=== PATIENT | male | born 1995 | race Caucasian/White ===

== ENCOUNTER 2023-05-19 02:29 | Emergency (ER) | payer SELFPAY ==
[2023-05-19 02:40] VITALS: BP 200/118; PULSE 64; RESP 18; TEMP 36.4; O2SAT 100; BMI 37.9
--- NOTE | 2023-05-19 02:56 | ED.GENADUL1 ---
HPI - General Adult General Chief complaint: Abdominal Pain Stated complaint: R FLANK PAIN Time Seen by Provider: 05/19/23 02:33 Source: patient Mode of arrival: walk-in Limitations: no limitations History of Present Illness HPI narrative: This 28-year-old male presents for evaluation of acute onset of right lower quadrant abdominal pain and right flank pain with nausea vomiting since 10:30 last night. The patient states he cannot get comfortable. He denies a history of kidney stones. He drove himself to the emergency department. He denies any fever. He has no chest pain or shortness of breath. Related Data Home Medications Medication Instructions Recorded Confirmed No Known Home Medications 05/19/23 05/19/23 Allergies Allergy/AdvReac Type Severity Reaction Status Date / Time No Known Drug Allergies Allergy Verified 05/19/23 02:47 Review of Systems ROS Status of ROS 10 or more systems reviewed and unremarkable except as noted in history and below [facility] Social History Smoking status: Current some day smoker Exam Narrative Exam Narrative: Nurses note and vital signs reviewed and patient is not hypoxic. Blood pressure is markedly elevated at 200/118 General: Nontoxic but uncomfortable-writhing on the stretcher male, he has dry heaves with bilious vomiting, no respiratory distress Skin: Warm, dry, no pallor noted. There is no rash noted. Head: Normocephalic, atraumatic Eye: Normal conjunctiva, no drainage, EOMI. PERRL Ears, Nose, Mouth, and Throat: oral mucosa is moist. Nares patent. Mouth without vesicles. Ear canals patent. Tm's without Erythema Cardiovascular: Regular Rate and Rhythm Respiratory: Patient is in no distress, no accessory muscle use, lungs are clear to auscultation, no wheezing, rales or rhonchi Back: non-tender, no CVA tenderness bilaterally to percussion. GI: Normal bowel sounds, there is tenderness in the right lower quadrant, patient pushes my hand away, tenderness along the distribution of the right ureter and right CVA tenderness Musculoskeletal: The patient has no evidence of calf tenderness, no pitting edema, symmetrical pulses noted bilaterally Neurological: A&O x4, normal speech Psychiatric: Cooperative Constitutional Vital Signs, click to edit/add: Last Vital Signs Temp 97.6 F 05/19/23 02:40 Pulse 61 03/04/24 04:56 Resp 16 05/19/23 04:56 BP 170/100 H 05/19/23 04:56 Pulse Ox 99 05/19/23 04:56 O2 Del Method Room Air 05/19/23 04:56 Course Vital Signs Vital signs: Vital Signs Temperature 97.6 F 05/19/23 02:40 Pulse Rate 64 05/19/23 02:40 Respiratory Rate 18 05/19/23 02:40 Blood Pressure 200/118 H 05/19/23 02:40 Pulse Oximetry 100 05/19/23 02:40 Oxygen Delivery Method Room Air 05/19/23 02:40 Temperature 97.6 F 05/19/23 02:40 Pulse Rate 61 05/19/23 04:56 Respiratory Rate 16 05/19/23 04:56 Blood Pressure 170/100 H 05/19/23 04:56 Pulse Oximetry 99 05/19/23 04:56 Oxygen Delivery Method Room Air 05/19/23 04:56 Medical Decision Making MDM Narrative Medical decision making narrative: This 28-year-old male presents for evaluation of right-sided abdominal pain with right flank pain with nausea vomiting. The onset was acute around 10:30 PM. Upon arrival he was vomiting and writhing around on the bed. He was tender in his right lower quadrant and along the distribution of the right ureter and right flank. The patient states he felt like he needed to have a bowel movement. He felt he was constipated. Clinically he appeared to be passing a kidney stone with colicky symptoms. He denies any chest pain or shortness of breath. He is medicated with IV fluids, Zofran and Toradol. His symptoms responded with control of his nausea and pain. Routine labs were ordered and are reviewed. His white count is mildly elevated at 12.1. The remainder of his labs and urine are negative. CT scan of the abdomen and pelvis was ordered to rule out appendicitis. The CT scan which is included in by his report shows moderate stool burden in the ascending and transverse colon with mild thickening of the colonic wall without associated inflammation with recommendation to correlate with clinical symptoms., 7.5 mm appendix with no periappendiceal inflammation, with no kidney or ureteral stones. These findings were discussed with the patient and he was given a copy of his CAT scan report. He now is stating that he had diarrhea earlier in the evening and there was a large amount of mucus in it. He is also having chills and influenza testing was ordered. He will be given a dose of Bentyl. I anticipate discharge after the influenza testing has been ordered with medications to control his nausea and colonic spasms; Zofran and Bentyl. Influenza is negative and he feels comfortable being discharged home. Medical Records Medical records narrative: The [address] [address] [address] Scan Report Signed Patient: MIGDALIA GARAY MR#: [id number] : 1995 Acct:[id number] Age/Sex: 28 / M ADM Date: 05/19/23 Loc: ER Attending Dr: Ordering Physician: Edis White Date of Service: 05/19/23 Procedure(s): CT abdomen pelvis wo con Accession Number(s): [id number] cc: Physician,Non-Staff M.D.~ The [address] [address] Patient Name: MIGDALIA GARAY MRN: [facility]:[id number] date: 1995 Sex: M Assigned Patient Location: ER Current Patient Location: ER Accession/Order Number: [id number] Exam Date: 05/19/2023 03:47 Report Date: 05/19/2023 04:19 At the request of: EDIS WHITE Procedure: CT abdomen pelvis wo con EXAM: CT abdomen pelvis wo con HISTORY: Right lower quadrant abdominal pain. COMPARISON: None. TECHNIQUE: Routine CT abdomen/pelvis without intravenous contrast. FINDINGS: Lower chest: Unremarkable Liver/gallbladder/biliary tree/pancreas/adrenal glands: Unremarkable. Spleen: Mild thyromegaly measuring 15.0 x 5.6 x 12.7 cm in longitudinal, transverse and AP dimensions. Kidneys: Both kidneys and both ureters are unremarkable. There is no renal calculus or obstructive uropathy. Urinary bladder: Unremarkable. Bowel: Nonobstructive bowel gas pattern with a moderate amount of stool within the ascending and proximal transverse colon. There is mild colonic wall thickening without pericolonic inflammatory reaction. Correlate with clinical findings of a developing colitis. The appendix is prominent measuring up to 7.5 mm. There is no periappendiceal inflammatory reaction. The distal esophagus, stomach and small bowel are unremarkable. Inflammation: There is no free air, free fluid or inflammatory reaction. Vasculature: The abdominal aorta and IVC are unremarkable. Lymphadenopathy: There are no pathologically enlarged lymph nodes within the abdomen/pelvis. Pelvis: The prostate gland is normal size. Osseous: Unremarkable. CT/CT abdomen pelvis wo con IMPRESSION: Nonobstructive bowel gas pattern with a moderate amount of stool within the ascending and proximal transverse colon. Mild colonic wall thickening without pericolonic inflammatory reaction. Correlate with clinical findings of a developing colitis. The appendix is prominent measuring up to 7.5 mm. There is no periappendiceal inflammatory reaction. The kidneys and ureters are unremarkable. There is no renal or ureteral calculus or obstructive uropathy. The urinary bladder is unremarkable. Mild splenomegaly measuring 15.0 x 5.6 x 12.7 cm. Electronically authenticated by: JIM STANTON Date: 05/19/2023 04:19 Lab Data Labs: Lab Results 05/19/23 05/19/23 05/19/23 Range/Units 02:54 04:39 04:49 WBC 12.1 H (4.0-11.0) 10^3/uL RBC 5.18 (4.70-6.10) 10^6/uL Hgb 14.6 (14.0-18.0) g/dL Hct 43.0 (42.0-54.0) % MCV 83.0 (80.0-94.0) fL MCH 28.2 (25.9-34.0) pg MCHC 34.0 (29.9-35.2) g/dL RDW 12.7 (11.0-15.0) % Plt Count 237 (150-450) 10^3/uL MPV 10.6 (9.5-13.5) fL Neut % (Auto) 66.3 (43.0-75.0) % Lymph % (Auto) 25.4 (20.5-60.0) % [place] % (Auto) 6.0 (1.7-12.0) % Eos % (Auto) 1.7 (0.9-7.0) % Baso % (Auto) 0.4 (0.2-2.0) % Neut # (Auto) 8.0 H (1.4-6.5) 10^3/uL Lymph # (Auto) 3.1 (1.2-3.8) 10^3/uL [place] # (Auto) 0.7 (0.3-0.8) 10^3/uL Eos # (Auto) 0.2 (0.0-0.7) 10^3/uL Baso # (Auto) 0.1 (0.0-0.1) 10^3/uL Abs Immat Gran (auto) 0.02 (0.00-0.03) 10^3/uL Imm/Tot Granulo (auto) 0.2 (0.0-0.5) % Sodium 142 (136-145) mmol/L Potassium 3.6 (3.5-5.1) mmol/L Chloride 104 (98-107) mmol/L Carbon Dioxide 27.0 (21.0-32.0) mmol/L Anion Gap 14.6 BUN 16.0 (7.0-18.0) mg/dL Creatinine 0.97 (0.70-1.30) mg/dL Est GFR ( Amer) >60 (>=60) Est GFR (Non-Af Amer) >60 (>=60) BUN/Creatinine Ratio 16.5 Glucose 120 H (74-106) mg/dL Calcium 9.5 (8.5-10.1) mg/dL Total Bilirubin 0.5 (0.2-1.0) mg/dL AST 26 (15-37) U/L ALT 46 (16-63) U/L Alkaline Phosphatase 80 (46-116) U/L Total Protein 7.6 (6.4-8.2) g/dL Albumin 4.3 (3.4-5.0) g/dL Globulin 3.3 g/dL Albumin/Globulin Ratio 1.3 Urine Color Lt. yellow (YELLOW) Urine Clarity Clear (CLEAR) Urine pH 7.0 (5.0-9.0) Ur Specific [place] 1.020 (1.005-1.025) Urine Protein Negative (NEG/TRACE) mg/dL Urine Glucose (UA) Negative (NEGATIVE) mg/dL Urine Ketones 15 A (NEGATIVE) mg/dL Urine Occult Blood Negative (NEGATIVE) Urine Nitrite Negative (NEGATIVE) Urine Bilirubin Negative (NEGATIVE) Urine Urobilinogen 1.0 (0.2-1.0) EU/dL Ur Leukocyte Esterase Negative (NEGATIVE) Influenza Type A Ag Negative Influenza Type B Ag Negative Discharge Plan Discharge Chief Complaint: Abdominal Pain Clinical Impression: Colitis, Nausea & vomiting, Constipation Patient Disposition: Home, Self-Care Time of Disposition Decision: 05:30 Condition: Good Prescriptions / Home Meds: No Action No Known Home Medications Instructions: Constipation (ED), High Fiber Diet (ED), Gastroenteritis (DC), Acute Nausea and Vomiting (DC) Referrals: Physician,Non-Staff, MD [Primary Care Provider] - 1 week Stand Alone Forms: Portal Instructions
[2023-05-19 03:17] LABS: Basophils Absolute Auto 0.1 10^3/uL (0.0-0.1); Basophils Percent Auto 0.4 % (0.2-2.0); Eosinophils Absolute Auto 0.2 10^3/uL (0.0-0.7); Eosinophils Percent Auto 1.7 % (0.9-7.0); Hemoglobin 14.6 g/dL (14.0-18.0); Immature Granulocytes Abs Auto 0.02 10^3/uL (0.00-0.03); Immature Granulocytes Pct Auto 0.2 % (0.0-0.5); Lymphocytes Absolute Auto 3.1 10^3/uL (1.2-3.8); Lymphocytes Percent Auto 25.4 % (20.5-60.0); Mean Corpuscular Hemoglobin 28.2 pg (25.9-34.0); Mean Platelet Volume 10.6 fL (9.5-13.5); Monocytes Absolute Auto 0.7 10^3/uL (0.3-0.8); Neutrophils Percent Auto 66.3 % (43.0-75.0); Platelet Count 237 10^3/uL (150-450); Red Blood Count 5.18 10^6/uL (4.70-6.10); Red Cell Distribution Width 12.7 % (11.0-15.0); White Blood Count 12.1 10^3/uL (4.0-11.0)
[2023-05-19] MEDS: KETOROLAC TROMETHAMINE 30 MG/ML VIAL IVP (03:23)
[2023-05-19] MEDS: 0.9 % SODIUM CHLORIDE 1,000 ML 1000 ML IV (03:23)
[2023-05-19] MEDS: ONDANSETRON PF 4 MG/2 ML VIAL IV (03:23)
[2023-05-19 03:32] LABS: Alanine Aminotransferase 46 U/L (16-63); Albumin Globulin Ratio 1.3; Albumin Level 4.3 g/dL (3.4-5.0); Alkaline Phosphatase 80 U/L (46-116); Anion Gap 14.6; Aspartate Amino Transferase 26 U/L (15-37); BUN Creatinine Ratio 16.5; Bilirubin Total 0.5 mg/dL (0.2-1.0); Calcium 9.5 mg/dL (8.5-10.1); Chloride 104 mmol/L (98-107); Estimated GFR (African America >60 (>=60); Estimated GFR (Non-African Ame >60 (>=60); Globulin 3.3 g/dL; Glucose 120 mg/dL (74-106); Potassium 3.6 mmol/L (3.5-5.1); Sodium 142 mmol/L (136-145); Total Protein 7.6 g/dL (6.4-8.2)
[2023-05-19 03:51] VITALS: BP 180/100
[2023-05-19 04:46] LABS: Bilirubin Urine NEGATIVE (NEGATIVE); Blood Urine NEGATIVE (NEGATIVE); Clarity Urine CLEAR (CLEAR); Color Urine LT. YELLOW (YELLOW); Glucose Urine UA NEGATIVE (NEGATIVE); Ketones Urine 15 mg/dL (NEGATIVE); Leukocyte Esterase Urine NEGATIVE (NEGATIVE); Nitrite Urine NEGATIVE (NEGATIVE); Protein Urine NEGATIVE (NEG/TRACE)
[2023-05-19 04:48] LABS: Urine Microscopic Indicated NO
[2023-05-19] MEDS: DICYCLOMINE HCL 20 MG/2 ML VIAL IM (04:50)
[2023-05-19 04:56] VITALS: BP 170/100; PULSE 61; RESP 16; O2SAT 99
[2023-05-19 05:07] LABS: Influenza Virus A Antigen Negative; Influenza Virus B Antigen Negative; Internal Control Within Normal Limits
== END 2023-05-19 05:41 | disposition home or self-care (01) ==
PROVIDERS: Emergency Provider Emergency Medicine
DX: K52.9 Noninfective gastroenteritis and colitis, unspecified (principal); K59.00 Constipation, unspecified; R11.2 Nausea with vomiting, unspecified; F17.210 Nicotine dependence, cigarettes, uncomplicated
CPT/HCPCS: 36415; 74176; 80053; 81001; 81003; 85025; 87804; 96361; 96372; 96374; 96375; 99284; J0500

== ENCOUNTER 2023-08-25 20:30 | Inpatient (IN) | payer SELFPAY ==
--- OUTSIDE RECORDS SUMMARY | 2023-08-25 20:36 | XMS_ITS | CCD ---
Author Organization [facility] Care Team Providers Care Lube Attendant Name Role Phone Unavailable Primary Care Provider Unavailabl e Results Test Name Value Interpretation Reference Range Facility Daily Progress Note-General Internal Medicineon 07-03-2020 Daily Progress Note-General Internal Medicine Consult Type: subsequent visit/care Service: General Internal Medicine Subjective Data: DANIEL CARBAJAL is a 25 year old Male who is Hospital Day # 4. Patient is alert and oriented x 3. He is resting quietly in his room. He engages in conversation, pleasant. Voices no concerns at this time. No acute distress noted. Patient denies chest pain, shortness of breath, palpitations, abdominal pain, fever or chills. Patient is eager to go home. Overnight Events: Patient had an uneventful night. Objective Data: Objective Information: T PRBPSpO2 [id number]/[id number]% Date/Time07/03 8: 15: 15: 15: 15:10 Range(36.4C - 36.4C ) (78 - 87 ) (16 - 18 ) (139 - 170 )/ (88 - 111 ) (99% - 100% ) Pain reported at 07/03 9:45: 0 = None T PRBPSpO2 [id number]/9199% Date/Time07/03 8: 15: 15: 15: 15:10 Range(36.4C - 36.4C ) (78 - 87 ) (16 - 18 ) (139 - 170 )/ (88 - 111 ) (99% - 100% ) Physical Exam Narrative: Physical Exam: Constitutional: Well developed, awake/alert/oriented x3, no distress, cooperative Head/Neck: Neck supple, no apparent injury, Respiratory/Thorax: Patent airways, normal breath sounds Cardiovascular: Regular, rate and rhythm, normal S 1and S 2 Gastrointestinal: Nondistended, soft, non-tender Extremities: normal extremities, Skin: warm, dry, intact Neurological: alert/oriented x 3, speech clear Psychiatric: appropriate mood and behavior Medication: Medications: Continuous Medications ------- No continuous medications are active Scheduled Medications ------- 1. amLODIPine (NORVASC): 5 mg Oral Daily 2. OXcarbazepine: 150 mg Oral 2 Times a Day 3. Pantoprazole: 40 mg Oral Daily 4. Sertraline: 50 mg Oral Daily PRN Medications ------- 1. Acetaminophen: 650 mg Oral Every 4 Hours 2. Benztropine: 1 mg Oral Every 4 Hours 3. Benztropine Injectable: 1 mg IntraMuscular 4 Times a Day 4. Haloperidol Lactate: 5 mg Oral Every 6 Hours 5. Haloperidol Lactate Injectable: 5 mg IntraMuscular Every 6 Hours 6. hydrOXYzine Pamoate (VISTARIL): 25 mg Oral Every 6 Hours 7. Ibuprofen: 400 mg Oral Every 6 Hours 8. LORazepam: 0.5 mg Oral Every 6 Hours 9. LORazepam Injectable: 0.5 mg IntraMuscular Every 6 Hours 10. Magnesium Hydroxide -Al Hydrox -Simethicone Oral Liquid: 30 mL Oral Every 6 Hours 11. Magnesium Hydroxide Oral Liquid CONCENTRATE: 10 mL Oral Every 24 Hours Assessment and Plan: Code Status: Code StatusFull Code Assessment: Assessment/Plan 1. Bipolar depression, anxiety Medication management per psychiatry Contract for safety Participate in therapy 2. GERD Start patient on Protonix 40 mg once daily Will continue upon discharge for 2 weeks until patient is able to follow up with PCP 3. Obesity Likely making GERD worse Risk factor modification and lifestyle modification discussed with patient. Diet , exercise and hydration discussed with patient. 4. HTN Increase Norvasc to 10mg daily Educated patient on importance of following up with PCP upon discharge Educated on healthy lifestyle and increasing daily activity Advised to take BP daily while continuing this medication. Patient plan to discharge today. Discussed extensively with patient the need to follow up regarding his blood pressure with PCP. Increased Norvasc to 10mg due to elevated BP post 5mg daily. Vital sign stable upon discharge. Patient verbalizes understanding through teach back method. Patient denies limitations regarding follow up. Appointment made by staff for patient PCP follow up for blood pressure and GERD. Patient voices no concerns at this time. Plan of care was discussed extensively with patient. Patient verbalized understanding through teach back method. All questions and concerns addressed upon examination. Please note that this document was written with the use of Booodl, a voice recognition program. Please excuse any errors in documentation. Electronic Signatures: Kristi Sanchez (LASER BEAM COLOR SCANNER OPERATOR-DESK ASSISTANT) (Signed 03-Jul-2020 21:20) Authored: Service, Subjective Data, Objective Data, Assessment and Plan, Note Completion Last Updated: 03-Jul-2020 21:20 by Kristi Sanchez (LASER BEAM COLOR SCANNER OPERATOR-DESK ASSISTANT) Normal [facility] Discharge [id number] Discharge Profile2 Discharge Orders: Anticipated Discharge Date: Anticipated Discharge [id number] Anticipated Discharge Time12:14 Problem List: Admitting Dx: Bipolar affective disorder, depressed, severe: Catalog Name: Bipolar disorder, current episode depressed, severe, without psychotic features DNAR: DNAR Status: none Psychiatric Continuing Care Plan: Discharge Destination: home Advance Directive/DNR: no Additional Resources for Patient and Family: [facility] Tobacco Use: Screening: Was the patient screened within the first 3 days of admission for tobacco use (cigarettes, smokeless tobacco, pipe, and cigar) within the previous 30 days: patient refused This patient is being discharged on multiple antipsychotic medications: no: Take all medications until outpatient provider advises otherwise. Questions After Hospitalization: Phone Number: [facility] For Results of Any Studies Pending at Discharge: Phone: [facility] Advance Directives: Advance Directive (Medical)no Advance Directive Information Givenpatient/family declined Reason No Advance Directive (Medical)did not wish to discuss adv directive/surrogate Advance Directive (Mental Health)no Advance Directive Information Given (Mental Health)patient/family declined Reason No Advance Directive (Mental Health)did not wish to discuss adv directive/surrogate Transition Record: Transition Record Discussed: All 11 elements of this patients transition record were discussed with the patient/caregiver and the Next Level of Care Provider Transition Record Given: A copy of the transition record was given to the patient and was transmitted to the Next Level of Care Provider Provider FINAL REVIEW of Orders: Final Review: Final Review of Medication Reconciliation and Orders Completedby LASER BEAM COLOR SCANNER OPERATOR Reviewing ProviderKLARISSA Calles at 03-Jul-2020 12:14:33 Appointments: [facility] Reason for ReferralFollow up appt Scheduled Date/[id number] 16:[facility] [phone] CommentsPlease answer all private and unknown calls on the day of the appt. Follow-Up App[facility]ment [facility] Reason for ReferralBlood pressure follow up / GERD follow up Call to Schedule in2-3 days CommentsNursing Staff to schedule appoitment Electronic Signatures: Marce Zhou (LASER BEAM COLOR SCANNER OPERATOR-[facility]) (Signed 03-Jul-2020 12:14) Authored: Discharge Orders, Psychiatric Continuing Care Plan, Provider FINAL REVIEW of Orders Kristi Sanchez (LASER BEAM COLOR SCANNER OPERATOR-[facility]) (Signed 03-Jul-2020 11:44) Authored: Discharge Orders, Appointments [facility] ([facility]) (Signed 03-Jul-2020 11:08) Authored: Discharge Orders, Appointments, Gold Form - Coffee Blender Summary Last Updated: 03-Jul-2020 12:14 by Marce Zhou (LASER BEAM COLOR SCANNER OPERATOR-[facility]) [facility] Order Reconciliationon 07-03 Order Reconciliation Page 1 Discharge Reconciliation Document Reconciliation Type: Discharge requested on behalf of Kristi Sanchez (Advanced Practice Nurse) done by Kristi Sanchez (LASER BEAM COLOR SCANNER OPERATOR-[facility]) Discharge - Partial Reconciliation: 03-Jul-2020 12:13 by: Marce Zhou (LASER BEAM COLOR SCANNER OPERATOR-[facility]) Discharge - Reconciliation: 03-Jul-2020 13:29 by: Kristi Sanchez (LASER BEAM COLOR SCANNER OPERATOR-[facility]) Current OrdersDateHOME MEDICATIONS AT DISCHARGE DateReconciliation Comment/ Additional Information Acetaminophen Tablet (TYLENOL)DOSE = 650 mg Oral Every 4 Hours, PRN Pain - Mild (1-3) 30-Jun-2020 14:48 Acetaminophen is not required amLODIPine (NORVASC) TabletDOSE = 5 mg Oral Daily 02-Jul-2020 10:19 Norvasc 10 mg oral tablet 1 tab(s) orally once a day 03-Jul-2020 13:28 Prescription is created for Norvasc 10 mg oral tablet Benztropine Tablet (COGENTIN)DOSE = 1 mg Oral Every 4 Hours, PRN EPS 30-Jun-2020 14:48 Benztropine is not required Benztropine Injectable (COGENTIN)DOSE = 1 mg IntraMuscular 4 Times a Day, PRN For EPS 30-Jun-2020 14:48 Benztropine Injectable is not required Haloperidol Lactate Tablet (HALDOL)DOSE = 5 mg Oral Every 6 Hours, PRN Agitation 30-Jun-2020 14:48 Haloperidol Lactate is not required Haloperidol Lactate Injectable (HALDOL)DOSE = 5 mg IntraMuscular Every 6 Hours, PRN For Agitation 30-Jun-2020 14:48 Haloperidol Lactate Injectable is not required hydrOXYzine Pamoate (VISTARIL) CapsuleDOSE = 25 mg Oral Every 6 Hours, PRN Mild Anxiety 30-Jun-2020 14:48 hydrOXYzine Pamoate (VISTARIL) is not required Ibuprofen Tablet (ADVIL, MOTRIN)DOSE = 400 mg Oral Every 6 Hours, PRN Pain - Mod (4-6) 30-Jun-2020 14:48 Ibuprofen is not required LORazepam Tablet (ATIVAN)DOSE = 0.5 mg Oral Every 6 Hours, PRN Anxiety 30-Jun-2020 14:48 LORazepam is not required LORazepam Injectable (ATIVAN)DOSE = 0.5 mg IntraMuscular Every 6 Hours, PRN For Anxiety 30-Jun-2020 14:48 LORazepam Injectable is not required Magnesium Hydroxide -Al Hydrox -Simethicone Oral Liquid (MAALOX)DOSE = 30 mL Oral Every 6 Hours, PRN Indigestion/Heartburn 30-Jun-2020 14:48 Magnesium Hydroxide -Al Hydrox -Simethicone Oral Liquid is not required Magnesium Hydroxide Oral Liquid CONCENTRATE (MILK OF MAGNESIA)DOSE = 10 mL Oral Every 24 Hours, PRN Constipation 30-Jun-2020 14:48 Magnesium Hydroxide Oral Liquid CONCENTRATE is not required OXcarbazepine Tablet (TRILEPTAL)DOSE = 150 mg Oral 2 Times a DayNotes from Pharmacy: Low Risk Hazardous Drug - Single Nitrile Glove 01-Jul-2020 09:25 OXcarbazepine 150 mg oral tablet 1 tab(s) orally 2 times a day 03-Jul-2020 12:12 Prescription is created for OXcarbazepine 150 mg oral tablet Pantoprazole Enteric Coated Tablet (PROTONIX)DOSE = 40 mg Oral Daily 02-Jul-2020 15:10 pantoprazole 40 mg oral delayed release tablet 1 tab(s) orally once a day 03-Jul-2020 13:28 Prescription is created for pantoprazole 40 mg oral delayed release tablet Sertraline Tablet (ZOLOFT)DOSE = 50 mg Oral Daily 30-Jun-2020 15:19 sertraline 50 mg oral tablet 1 tab(s) orally once a day 03-Jul-2020 12:12 Prescription is created for sertraline 50 mg oral tablet Home Medications Added During Discharge Reconciliation Discharge Discharge Diagnosis< F31.4 Bipolar affective disorder, depressed, severe Discharge Provider, Ernesto Queen Discharge Disposition : .Home Condition at Discharge: Satisfactory Discharge Communication Instructions for Nursing Only: Remove IV prior to discharge from hospital. Do not remove any midline, if present, without an order from the provider. Discharge Instructions - PHR After your discharge from the hospital, two Summary of Care Documents will be available online in your Personal Health Record (PHR). 1.Consolidated-Clinical Document Architecture (C-CDA) Patient Discharge Summary This document is a summary of your hospital stay to be kept for your reference.2.C-CDA Visit Summary This document is a summary of your hospital stay to be shared with your follow-up providers (doctor, test specialist, physical therapist, etc.). Guidelines for a Healthy Lifestyle All Active Home Medications at time of Discharge Reconciliation: 03-Jul-2020 13:29 Discharge Discharge Diagnosis< F31.4 Bipolar affective disorder, depressed, severe Discharge Provider, Ernesto Queen Discharge Disposition : .Home Condition at Discharge: Satisfactory Discharge Communication Instructions for Nursing Only: Remove IV prior to discharge from hospital. Do not remove any midline, if present, without an order from the provider. Discharge Instructions - PHR After your discharge from the hospital, two Summary of Care Documents will be available online in your Personal Health Record (PHR). 1.Consolidated-Clinical Document Architecture (C-CDA) Patient Discharge Summary This document is a summary of your hospital stay to be kept for your reference.2.C-CDA Visit Summary This document is a summary of your hospital stay to be shared with your follow-up providers ( (more content not included)... Normal [facility] Consult-General Internal Med sandhya 07-02-2020 Consult-General Internal Medicine Service: Service: General Internal Medicine Consult: Consult requested by (Attending Name): Ernesto Queen Reason: H & P History of Present Illness: Admission Reason: SI HPI: PER EPAT: Pt, who is a 25 year old male, presents to the [facility] with a chief complaint of suicidal ideation. Prior to assessment, pt's EMR including; Provider note, triage note, and community record were reviewed. Today, pt was brought to the ED by his fiuhgoe. They had been arguing because his fiancee was concerned about pt's recent mental health and pt was not reacting well to her confrontation. He eventually broke down and became inconsolable for 15 or so minutes and that's when I realized I needed serious help. On arrival to the ED, pt told triage ED that if he goes home he'll hurt himself. EPAT was consulted for further evaluation. Pt has a self reported past psychiatric history of depression and anxiety. [facility] but when his therapist left the agency, he was unable to secure a new appointment until Jul, 2020 and I just can't wait that long. Pt has never taken psychotropic medications. Pt denied previous suicide attempts. Pt currently resides with his fihugoe. They have been together for 2 years and living together since March,. Since moving in together, he has drained my savings taking their cats to the vet for various health problems. He has been working double shifts to cover the losses but his fiancee is upset that he is always working. Pt has little family support and feels overwhelmed by his current obligations. 07/02/20 Patient is seen in his room. He is lying down reading a book. Engages in conversation easily. Does not appear to be distracted. Patient reports good appetite and sleeping well. Denies any suicidal thoughts. States he is feeling better no longer hopeless or worthless feelings. Patient reports he was never suicidal but had a mental breakdown. He is under a great deal of stress trying to make ends meet. He does have a job that pays very little. ' From a medical standpoint patient's only complaint has been occasional heartburn which is resolved with taking Tums at home. As far as he knows his blood pressure has been under control but reports family history of hypertension. Patient is obese with a BMI of 35.6. His blood pressure this morning Was significantly elevated 180/107. Patient was given 5 mg of Norvasc and repeat blood pressure was 166/84. Vital signs are otherwise stable. Laboratory work reviewed and unremarkable. Tox screen was normal. COVID-19 PCR was negative. Urinalysis was negative for infection. PMH: obesity, GERD, anxiety Surg Hx: Reviewed and none Fam Hx: Mother had hypertension Social Hx: Denies smoking, alcohol or drug use ROS: All other systems have been reviewed and are negative for complaint. Physical Exam: Constitutional: Well developed, awake/alert/oriented x3, no distress, alert and cooperative Eyes: PERRL, EOMI, clear sclera ENMT: mucous membranes moist, no apparent injury, no lesions seen Head/Neck: Neck supple, no apparent injury, thyroid without mass or tenderness, No JVD, trachea midline, no bruits Respiratory/Thorax: Patent airways, CTAB, normal breath sounds with good chest expansion, thorax symmetric Cardiovascular: Regular, rate and rhythm, no murmurs, 2+ equal pulses of the extremities, normal S 1and S 2 Gastrointestinal: Nondistended, soft, non-tender, no rebound tenderness or guarding, no masses palpable, no organomegaly, +BS, no bruits Musculoskeletal: ROM intact, no joint swelling, normal strength Extremities: normal extremities, no cyanosis edema, contusions or wounds, no clubbing Skin: warm, dry, intact. Assessment/Plan 1. Bipolar depression, anxiety Medication management per psychiatry Contract for safety Participate in therapy 2. GERD Start patient on Protonix 40 mg once daily 3. Obesity Likely making GERD worse Risk factor modification and lifestyle modification discussed with patient. Diet , exercise and hydration discussed with patient. 4. HTN Start patient on Norvasc 5 mg once daily and assess response Patient seen and examined by myself. Laboratory values, imaging studies and medications personally reviewed. Assessment and plan reviewed with RN in detail and necessary changes made. Medicine will sign off. Call if needed. Allergies: No Known Allergies: Objective: Objective Information: T PRBPSpO2 [id number]/8498% Date/Time07/02 9: 12: 12: 12: 12:24 Range(36.5C - 36.5C ) (68 - 97 ) (18 - 18 ) (163 - 180 )/ (84 - 107 ) (97% - 99% ) Physical Exam by System: Constitutional: Well developed, awake/alert/oriented x3, no distress, alert and cooperative Eyes: PERRL, EOMI, clear sclera ENMT: mucous membranes zac (more content not included)... Normal [facility] Daily Progress Note - Psychi atryon 07-02-2020 Daily Progress Note - Psychiatry Subjective Data: DANIEL CARBAJAL is a 25 year old Male who is Hospital Day # 3. Additional Information: Pt SEEN D/W TEAM Report feeling much better today Seen reading book and his concentration is better Sleep and appetite good No negative thinking or suicidal thoughts No hopeless or worthless feeling Objective: Objective Information: T PRBPSpO2 [id number]% Date/Time07/02 9: 9: 9: 9: 9:11 Range(36.5C - 36.5C ) (89 - 97 ) (18 - 18 ) (163 - 180 )/ (107 - 107 ) (97% - 99% ) Mental Status Exam: General: Appropriately groomed and dressed. Appearance: Appears stated age. Behavior: Appropriate eye contact. Motor Activity: No agitation or retardation. No EPS/TD. Normal gait. Speech: Regular rate, rhythm, volume and tone, spontaneous, fluent. Mood: lesss depressed Affect: reactive Thought Perception: Does not endorse auditory or visual hallucinations, does not appear to be responding to hallucinatory stimuli. Insight: Good, as patient recognizes symptoms of illness and need for recommended treatments. Judgment: Can make reasonable decisions about ordinary activities of daily living and necessary medical care recommendations. Assessment and Plan: Risk Assessment: [place] Suicide Risk: negative (1) DASA Risk for Violence: (0-1) Low Risk for violence in next 24 hours Assessment: Bipolar depression Informed consent: discussed with patient the risks, benefits and alternatives including FDA black box warning of treatment provided. Informed consent was given. Patient has capacity to participate in informed consent. Treatment Plan: Continue treatment Medication management Utilize PRN medications if needed, monitor for side effects. Therapy as appropriate Encourage participation in group therapy Staff is to obtain collateral information Staff is to monitor patient for safety Encourage abstaining from alcohol and drugs See chart for details. DISCHARGE TOMORROW IF STABLE Electronic Signatures: Ernesto Queen) (Signed 02-Jul-2020 11:40) Authored: Subjective Data, Objective, Assessment and Plan, Note Completion Last Updated: 02-Jul-2020 11:40 by Ernesto Queen) References: 1. Data Referenced From 4. A + I - Behavioral 01-Jul-2020 21:31 Normal [facility] Daily Progress Note - Psychi atryon 07-01-2020 Daily Progress Note - Psychiatry Subjective Data: DANIEL CARBAJAL is a 25 year old Male who is Hospital Day # 2. Additional Information: Pt report feeling depressed anxious and hopeless Poor eye contact during the interview Pt has been having passive SI Admit to mood swings, anger irritability and impulsivity Slept better last night Objective: Objective Information: T PRBPSpO2 [id number]/8897% Date/Time07/01 10: 10: 10: 10: 10:07 Range(37C - 37.1C ) (61 - 98 ) (16 - 20 ) (148 - 190 )/ (82 - 112 ) (97% - 100% ) Highest temp of 37.1 C was recorded at 06/30 20:25 Mental Status Exam: General: Appropriately groomed and dressed. Appearance: Appears stated age. Behavior: Appropriate eye contact. Motor Activity: No agitation or retardation. No EPS/TD. Normal gait. Speech: Regular rate, rhythm, volume and tone, spontaneous, fluent. Mood: depressed Affect: restricted Thought Perception: Does not endorse auditory or visual hallucinations, does not appear to be responding to hallucinatory stimuli. Insight: Good, as patient recognizes symptoms of illness and need for recommended treatments. Medications: Continuous Medications ------- No continuous medications are active Scheduled Medications ------- 1. OXcarbazepine: 150 mg Oral 2 Times a Day 2. Sertraline: 50 mg Oral Daily PRN Medications ------- 1. Acetaminophen: 650 mg Oral Every 4 Hours 2. Benztropine: 1 mg Oral Every 4 Hours 3. Benztropine Injectable: 1 mg IntraMuscular 4 Times a Day 4. Haloperidol Lactate: 5 mg Oral Every 6 Hours 5. Haloperidol Lactate Injectable: 5 mg IntraMuscular Every 6 Hours 6. hydrOXYzine Pamoate (VISTARIL): 25 mg Oral Every 6 Hours 7. Ibuprofen: 400 mg Oral Every 6 Hours 8. LORazepam: 0.5 mg Oral Every 6 Hours 9. LORazepam Injectable: 0.5 mg IntraMuscular Every 6 Hours 10. Magnesium Hydroxide -Al Hydrox -Simethicone Oral Liquid: 30 mL Oral Every 6 Hours 11. Magnesium Hydroxide Oral Liquid CONCENTRATE: 10 mL Oral Every 24 Hours Assessment and Plan: Risk Assessment: [place] Suicide Risk: low (1) DASA Risk for Violence: (0-1) Low Risk for violence in next 24 hours(1) Assessment: Bipolar depression Informed consent: discussed with patient the risks, benefits and alternatives including FDA black box warning of treatment provided. Informed consent was given. Patient has capacity to participate in informed consent. Treatment Plan: Continue treatment Medication management Utilize PRN medications if needed, monitor for side effects. Therapy as appropriate Encourage participation in group therapy Staff is to obtain collateral information Staff is to monitor patient for safety Encourage abstaining from alcohol and drugs See chart for details. Electronic Signatures: Ernesto Queen) (Signed 01-Jul-2020 11:20) Authored: Subjective Data, Objective, Assessment and Plan, Note Completion Last Updated: 01-Jul-2020 11:20 by Ernesto Queen) References: 1. Data Referenced From 4. A + I - Behavioral 30-Jun-2020 22:25 Normal [facility] Order Reconciliationon 07-01 Order Reconciliation Page 1 Admission Reconciliation Document Reconciliation Type: Admission requested on behalf of Nikkie Wilkerson (Advanced Practice Nurse) done by Nikkie Wilkerson (LASER BEAM COLOR SCANNER OPERATOR-[facility]) Admission - Reconciliation: 01-Jul-2020 10:04 by: Nikkie Wilkerson (LASER BEAM COLOR SCANNER OPERATOR-[facility]) Additional Current Orders Acetaminophen Tablet (TYLENOL)DOSE = 650 mg Oral Every 4 Hours, PRN Pain - Mild (1-3) Benztropine Injectable (COGENTIN)DOSE = 1 mg IntraMuscular 4 Times a Day, PRN For EPS Benztropine Tablet (COGENTIN)DOSE = 1 mg Oral Every 4 Hours, PRN EPS Haloperidol Lactate Injectable (HALDOL)DOSE = 5 mg IntraMuscular Every 6 Hours, PRN For Agitation Haloperidol Lactate Tablet (HALDOL)DOSE = 5 mg Oral Every 6 Hours, PRN Agitation hydrOXYzine Pamoate (VISTARIL) CapsuleDOSE = 25 mg Oral Every 6 Hours, PRN Mild Anxiety Ibuprofen Tablet (ADVIL, MOTRIN)DOSE = 400 mg Oral Every 6 Hours, PRN Pain - Mod (4-6) LORazepam Injectable (ATIVAN)DOSE = 0.5 mg IntraMuscular Every 6 Hours, PRN For Anxiety LORazepam Tablet (ATIVAN)DOSE = 0.5 mg Oral Every 6 Hours, PRN Anxiety Magnesium Hydroxide -Al Hydrox -Simethicone Oral Liquid (MAALOX)DOSE = 30 mL Oral Every 6 Hours, PRN Indigestion/Heartburn Magnesium Hydroxide Oral Liquid CONCENTRATE (MILK OF MAGNESIA)DOSE = 10 mL Oral Every 24 Hours, PRN Constipation OXcarbazepine Tablet (TRILEPTAL)DOSE = 150 mg Oral 2 Times a DayNotes from Pharmacy: Low Risk Hazardous Drug - Single Nitrile Glove Sertraline Tablet (ZOLOFT)DOSE = 50 mg Oral Daily Normal [facility] TSHon 07-01-2020 TSH Qn 1.76 m[IU]/L Normal 0.44 - 3.98 [facility] Comment on above: Result Comment: TSH testing is performed using different testing methodology at [facility] than at other [facility] hospitals. Direct result comparisons should only be made within the same method. Performed By: #### T SH2 #### [address] [id number] ACUTE TOXICOLOGY PANEL, MELIDA Briggs 06-30-2020 Acetaminophen [Mass/Vol] ug/mL Normal 10.0 - 30.0 [facility] Comment on above: Performed By: #### D RUBL #### [facility] [address] [place] [address] Ethanol [Mass/Vol] mg/dL Normal [facility] Comment on above: Result Comment: FOR MEDICAL USE ONLY. . REF VALUES <10 Performed By: #### D RUBL #### [facility] [address] [place] [address] SALICYLATE <3 Normal 4 - 20 [facility] Comment on above: Performed By: #### D RUBL #### [facility] [address] [place] [address] Admission Risk Screen - Adul ton 06-30-2020 Admission Risk Screen - Adult Allergies: Allergies: No Known Allergies: Patient Verification: New W ID Band Applied in my Departmentyes Patient Identity Verified Bypatient ID Band FULL Name, include Middle, spelling matches patient's ID used for verificationyes ID Band Matches Patient ID used for Verficationyes ID Band MRN Matches EMR MRNyes Visitor Restriction: Coronavirus Visitor Restriction: Reasonable restrictions to in-person visitors will be observed due to current coronavirus pandemic. Travel History: COVID-19 Screening Completedno exposure or symptoms Meredith Fall Screen: History of falling (immediate or previous)no (0) Secondary Diagnosisyes (15) Intravenous Therapy/ Heparin/Saline Lockno (0) Gait/Transferringnormal/b edrest/wheelchair (0) Ambulatory Aidsnone/bedrest/nurse assist (0) Mental Statusoriented to own ability (0) Score: Low risk (<25). Moderate risk (25-44). High risk (>44).15 Meredith InterventionsLOW INTERVENTIONS: *patient oriented to surroundings and call system, * patient/family falls education completed and documented, *patients fall status communicated during bedside handoff, *whiteboard updated, *mode of toileting discussed with patient, *bed in low position with brakes locked, *call light in reach, * non-skid footwear Functional Screen: Functional Screen: In the recent/past 2-4 weeks, patient or family have noticedno issues that require a speech/language consult at this time AM-PAC- Basic Mobility/Daily Activity: Patient baseline bedboundno Learning Assessment (Patient): Patient is Able to be Assessed for Learningyes Factors Influencing Readiness to Learnanxiety; depression Factors that Impact Ability to Learnacuteness of illness Devices/Methods Used to Communicateglasses Learning Preferencesverbal instruction; written material Cultural Considerationsnone Developmental Considerationsnone Scientologist Considerationsnone Learning Assessment (Other Learner): Other learner availableno Adult Nutrition Screen: Have you recently lost weight without tryingno Have you been eating poorly because of a decreased appetiteno Malnutrition Screening Tool Score0 Malnutrition Screening Tool RiskMST = 0 or 1 Not at risk. Eating well with little or no weight loss Nutrition Consult needed this visitno Can Patient Participate in Room Serviceyes Patient requires Paper Dishes/Plastic Utensilsno Pain Screen: Pain Scalenumerical 0-10 Pain Scale Educationteaching provided Current Pain Level0 = None Acceptable Pain Level0 = None Expression of Pain (nonverbal)irritability Chronic Painno Spiritual Screen: Are there any cultural, spiritual, congregation practices/values/needs that are important for us to knowno Vaccinations: Vaccination - Influenza Vaccination Screen: Is it flu season (between and June 14)No Vaccination - Pneumonia Vaccination Screen: Patient has received a previous pneumonia vaccine:no/unknown... Immunocompetent persons with underlying chronic conditions or reside in terminal carman care facilitiesnone of these conditions Persons with Functional or Anatomic Asplenianone of these conditions Immunocompromised Personsnone of these conditions Pneumonia vaccine NOT indicated due to:patient DOES NOT have a condition that indicates vaccination No contraindications to vaccine Pneumonia vaccine indicatedyes Jordan: Skin - Jordan Scale: Jordan: Sensory Perception (response to environment)(4) no impairment Jordan: Moisture (degree skin exposed to moisture)(4) rarely moist Jordan: Activity (ability to walk)(4) walks frequently Jordan: Mobility (amount/control of body movement)(4) no limitation Jordan: Nutrition (quality of food intake)(4) excellent Jordan: Friction and Shear(3) no apparent problem Jordan: Score23 Significant Indicatiors: Significant Indicators: Complete Pressure Injury: Pressure Injury Present on Admissionno Advance Directives: Advance Directive (Medical)no Advance Directive Information Givenpatient/family declined Reason No Advance Directive (Medical)did not wish to discuss adv directive/surrogate Advance Directive (Mental Health)no Advance Directive Information Given (Mental Health)patient/family declined Reason No Advance Directive (Mental Health)did not wish to discuss adv directive/surrogate Strengths (document at least 2 ): Describe Your Strengths: communication Describe Your Strengths 2: roll with the punches Safety Wanding: [place] Wanding Resultsnegative [place] Suicide: STEP 1 Risk Screen Not Applicable/Able to Answerable to be screened In the Past Month: Have you wished you were or could go to sleep and not wake upno In the Past Month: Have you had any actual thoughts of killing yourselfno Lifetime: Have you ever done, started to do, or prepared to do anything to end your lifeyes Was this within the past 3 monthsno [place] S (more content not included)... Normal [facility] CBC AND DIFFERENTIALon 06-30 % AUTOMATED IMMATURE GRAN 0.3 % Normal 0.0 - 0.9 [facility] Comment on above: Result Comment: Jossie ture Granulocyte Count (IG) includes promyelocytes, myelocytes and metamyelocytes but does not include bands. Percent differential counts (%) should be interpreted in the context of the absolute cell counts (cells/L). Performed By: #### C BCDF #### [facility] [address] [place] [address] Basophils (Bld) [#/Vol] 0.04 10*3/uL Normal 0.00 - 0.10 [facility] Comment on above: Performed By: #### C BCDF #### [facility] [address] [place] [address] Basophils/100 WBC (Bld) 0.5 % Normal 0.0 - 2.0 [facility] Comment on above: Performed By: #### C BCDF #### [facility] [address] [place] [address] Eosinophils (Bld) [#/Vol] 0.36 10*3/uL Normal 0.00 - 0.70 [facility] Comment on above: Performed By: #### C BCDF #### [facility] [address] [place] [address] Eosinophils/100 WBC (Bld) 4.5 % Normal 0.0 - 6.0 [facility] Comment on above: Performed By: #### C BCDF #### [facility] [address] [place] [address] Erythrocyte distribution width (RBC) [Ratio] 12.7 % Normal 11.5 - 14.5 [facility] Comment on above: Performed By: #### C BCDF #### [facility] [address] [place] [address] Hematocrit (Bld) [Volume fraction] 46.1 % Normal 41.0 - 52.0 [facility] Comment on above: Performed By: #### C BCDF #### [address] [place] [address] Hemoglobin (Bld) [Mass/Vol] 15.4 g/dL Normal 13.5 - 17.5 [facility] Comment on above: Performed By: #### C BCDF #### [address] [place] [address] Lymphocytes (Bld) [#/Vol] 3.52 10*3/uL Normal 1.20 - 4.80 [facility] Comment on above: Performed By: #### C BCDF #### [facility] [address] [place] [address], [place] [address] Lymphocytes/100 WBC (Bld) 44.1 % Normal 13.0 - 44.0 [facility] Comment on above: Performed By: #### C BCDF #### [address] [place] [address] MCHC (RBC) [Mass/Vol] 33.4 g/dL Normal 32.0 - 36.0 [facility] Comment on above: Performed By: #### C BCDF #### [address] [place] [address] MCV (RBC) [Entitic vol] 84 fL Normal 80 - 100 [facility] Comment on above: Performed By: #### C BCDF #### [address] [place] [address] Monocytes (Bld) [#/Vol] 0.43 10*3/uL Normal 0.10 - 1.00 [facility] Comment on above: Performed By: #### C BCDF #### [address] [place] [address] Monocytes/100 WBC (Bld) 5.4 % Normal 2.0 - 10.0 [facility] Comment on above: Performed By: #### C BCDF #### [address] [address] Neutrophils (Bld) [#/Vol] 3.61 10*3/uL Normal 1.20 - 7.70 [facility] Comment on above: Performed By: #### C BCDF #### [address] [address] Neutrophils/100 WBC (Bld) 45.2 % Normal 40.0 - 80.0 [facility] Comment on above: Performed By: #### C BCDF #### [address] [address] NUCLEATED RBC 0.0 /100 WBC Normal 0.0 - 0.0 [facility] Comment on above: Performed By: #### C BCDF #### [address] [address] Platelets (Bld) [#/Vol] 246 10*3/uL Normal 150 - 450 [facility] Comment on above: Performed By: #### C BCDF #### [address] [address] RBC 5.50 x10E12/L Normal 4.50 - 5.90 [facility] Comment on above: Performed By: #### C BCDF #### [address] [address] WBC (Bld) [#/Vol] 8.0 10*3/uL Normal 4.4 - 11.3 [facility] Comment on above: Performed By: #### C BCDF #### [address] [address] COMPREHENSIVE PANELon 2020 Albumin [Mass/Vol] 4.6 g/dL Normal 3.4 - 5.0 [facility] Comment on above: Performed By: #### C MP #### [address] [address] ALP [Catalytic activity/Vol] 64 U/L Normal 33 - 120 [facility] Comment on above: Performed By: #### C MP #### [address] [address] ALT [Catalytic activity/Vol] 60 U/L High 10 - 52 [facility] Comment on above: Result Comment: Shiela ents treated with Sulfasalazine may generate falsely decreased results for ALT. Performed By: #### C MP #### [address] [address] Anion gap [Moles/Vol] 13 mmol/L Normal 10 - 20 [facility] Comment on above: Performed By: #### C MP #### [address] [address] AST [Catalytic activity/Vol] 32 U/L Normal 9 - 39 [facility] Comment on above: Performed By: #### C MP #### [address] [address] Bilirubin [Mass/Vol] 0.5 mg/dL Normal 0.0 - 1.2 [facility] Comment on above: Performed By: #### C MP #### [address] [address] Calcium [Mass/Vol] 9.9 mg/dL Normal 8.6 - 10.3 [facility] Comment on above: Performed By: #### C MP #### [address] [address] Chloride [Moles/Vol] 105 mmol/L Normal 98 - 107 [facility] Comment on above: Performed By: #### C MP #### [address] [address] Creatinine [Mass/Vol] 0.93 mg/dL Normal 0.50 - 1.30 [facility] Comment on above: Performed By: #### C MP #### [address] [address] GFR- AM. >60 Normal >60 [facility] Comment on above: Result Comment: CALC ULATIONS OF ESTIMATED GFR ARE PERFORMED USING THE MDRD STUDY EQUATION FOR THE IDMS-TRACEABLE CREATININE METHODS. CLIN CHEM 2007;53:766-72 Performed By: #### C MP #### [address] [place] [address] GFR-NON AM. >60 Normal >60 [facility] Comment on above: Performed By: #### C MP #### [address] [place] [address] Glucose [Mass/Vol] 112 mg/dL High 74 - 99 [facility] Comment on above: Performed By: #### C MP #### [address] [place] [address] HCO3 (Bld) [Moles/Vol] 26 mmol/L Normal 21 - 32 [facility] Comment on above: Performed By: #### C MP #### [address] [place] [address] Potassium [Moles/Vol] 3.8 mmol/L Normal 3.5 - 5.3 [facility] Comment on above: Performed By: #### C MP #### [address] [place] [address] Protein [Mass/Vol] 6.8 g/dL Normal 6.4 - 8.2 [facility] Comment on above: Performed By: #### C MP #### [address] [place] [address] Sodium [Moles/Vol] 140 mmol/L Normal 136 - 145 [facility] Comment on above: Performed By: #### C MP #### [address] [place] [address] Urea nitrogen [Mass/Vol] 17 mg/dL Normal 6 - 23 [facility] Comment on above: Performed By: #### C MP #### [address] [place] [address] CORONAVIRUS 2019, SCREEN ASY MPTOMATICon 06-30-2020 SARS-CoV-2 (COVID-19) RNA OMAR+probe Ql (Unsp spec) Not detected Normal Not Detected [facility] Comment on above: Result Comment: . This assay is designed to detect the RdRp gene of SARS-CoV-2 via nucleic acid amplification. A Not Detected result does not preclude COVID-19 infection since the adequacy of sample collection and/or low viral burden may result in presence of viral nucleic acids below the clinical sensitivity of this test method. Fact sheet for providers: www.fda.gov/media/178247/download Fact sheet for patients: www.fda.gov/media/159388/download This test has received FDA Emergency Use Authorization (EUA) and has been verified by [facility]. This test is only authorized for the duration of time that circumstances exist to justify the authorization of the emergency use of in vitro diagnostic tests for the detection of SARS-CoV-2 virus and/or diagnosis of COVID-19 infection under section 564(b)(1) of the Act, 21 U.S.C. 360bbb-3(b)(1), unless the authorization is terminated or revoked sooner. [facility] is certified under CLIA-88 as qualified to perform high complexity testing. Testing is performed in the [facility] laboratory located at [address] [place] [address]. Performed By: #### C OVSC #### [place] [address] Lab Specimen Source Nasal, Nasopharyngeal Normal [facility] Comment on above: Performed By: #### C OVSC #### [place] [address] Covid 19 Resultson 1 SARS-CoV-2 (COVID-19) RNA OMAR+probe Ql (Unsp spec) NEGATIVE COVID-19 Test Coronaviruses are common world-wide and are the cause of many common colds. SARS-COV2 is a new coronavirus that began circulating worldwide in 2019 so we are calling it COVID-19. It has been estimated that four out of five patients with COVID-19 will recover at home without the need for medical attention. Symptoms of COVID-19 may include cough, fever, shortness of breath, loss of taste or smell and other flu-like symptoms including chills, sore muscles, sore throat, and headache. Severe illness is more common in older people and people with other health problems such as high blood pressure, obesity, and immune system problems. If the test is positive, you have COVID-19. You will be contacted by the ordering physicians office and instructed to remain on home isolation, in accordance with CDC guidelines. You may also be contacted by the [facility] to see if any of your close contacts may have been exposed to the virus and need to quarantine. If the test is negative, you likely do not have COVID-19 at this time, but you still may have a different illness that can spread to other people (like Influenza, or the Flu) and could still be at risk for getting COVID-19. We recommend that you stay away from other people to limit the spread of illness until your symptoms are improving and you are fever-free for 24 hours without the use of fever lowering medications such as acetaminophen or ibuprofen. No test is 100% accurate so if you are still concerned you may have COVID-19, talk to your doctor about the need to continue to stay away from others. Medicines Unless your provider told you not to use the following: Acetaminophen (Tylenol and others) is generally safe. Anti-inflammatory medications, such as Ibuprofen (Advil or Motrin) or Naproxen (Aleve) can also be used. Pxac-kdm-hmdtkxi cough and cold medicines can be used according to the instructions on the package. Some ongr-fmt-tmveiym medicines also contain acetaminophen. Make sure you are not taking more than your recommended dose. For those not hospitalized, there is no specific treatment available for this illness. Antibiotics do not treat Coronaviruses. Follow-Up Follow up with your doctor by scheduling a virtual visit or consider follow-up at one of our urgent care fever clinics. If you are having difficulty breathing, or are very weak and having difficulty standing, this is a medical emergency. Call 911 or have someone take you to the nearest emergency room immediately. If possible, wear a facemask. Additional guidance from the CDC for patients who tested POSITIVE for COVID-19 How to isolate: Isolate yourself in a specific room at home and limit your contact with others. Use a separate bathroom from other members of the household, when possible. Leave home only to get essential medical care. Do not go to work, school or public areas. Avoid using public transportation, ride-sharing, or taxis. Restrict contact with pets and other animals. If you must care for your pet or be around animals while you are sick, wash your hands before and after your interaction and wear a facemask. Make sure that shared spaces in the home have good airflow, such as by an air conditioner or an opened window, weather permitting. Personal Hygiene Procedures: Wear a face mask when in the same room as other people or pets. If a face mask interferes with your breathing, others should wear a mask when sharing space with you. Frequent hand-washing: wash your hands with soap and water for at least 20 seconds. If soap and water are not available, use alcohol-based hand woven wood shade assembler. Avoid touching your eyes, nose, and mouth with unwashed hands. Household Hygiene Procedures: Avoid sharing personal household items such as dishes, glassware, cups, eating utensils, towels or bedding with other people or pets in your home. After use, these items should be washed with soap and hot water. Disinfect all high-touch surfaces every day with antibacterial cleaning solutions such as Lysol wipes, bleach, cleansers, etc. High-touch surfaces include tabletops, doorknobs, bathroom fixtures, toilets, phones, keyboards, tablets and bedside tables. Immediately clean any surfaces that may have blood, poop or body fluids on them, using antibacterial cleaning solutions such as Lysol wipes, bleach, cleansers, etc. If clothing or bedding come into contact with blood, poop or body fluids, they should be washed immediately. Follow the directions on the laundry detergent and clothing labels but hot water is recommended when possible. Stopping home isolation precautions: If possible, consult your doctor before stopping home isolation precautions. According to the CDC, you can discontinue home isolation precautions when you have met both of these criteria: Your fever and respiratory symptoms have been gone for 24 cheri (more content not included)... Normal [facility] DRUG SCREEN,URINEon 07-01-19 21 AMPHETAMINE SCREEN,U Negative Normal NEGATIVE [facility] Comment on above: Result Comment: CUTO FF LEVEL: 500 NG/ML Cross-reactivity has been reported with high concentrations of the following drugs: buproprion, chloroquine, chlorpromazine, ephedrine, mephentermine, fenfluramine, phentermine, phenylpropanolamine, pseudoephedrine, and propranolol. Performed By: #### D RUG3 ####[facility] [place] [address] BARBITURATES SCREEN,U Negative Normal NEGATIVE [facility] Comment on above: Result Comment: CUTO FF LEVEL: 200 NG/ML Performed By: #### D RUG3 ####[facility] [place] [address] BENZODIAZEPINES SCREEN,U Negative Normal NEGATIVE [facility] Comment on above: Result Comment: CUTO FF LEVEL: 200 NG/ML Performed By: #### D RUG3 ####[facility] [place] [address] CANNABINOIDS SCREEN,U Negative Normal NEGATIVE [facility] Comment on above: Result Comment: CUTO FF LEVEL: 50 NG/ML Performed By: #### D RUG3 ####[facility] [place] [address], [place] [address] COCAINE METABOLITE SCREEN,U Negative Normal NEGATIVE [facility] Comment on above: Result Comment: CUTO FF LEVEL: 150 NG/ML Performed By: #### D RUG3 ####[facility] [place] [address], [place] [address] DRUG SCREEN COMMENT SEE BELOW Normal [facility] Comment on above: Result Comment: Drug screen results are presumptive and should not be used to assess compliance with prescribed medication. Contact the performing [facility] laboratory to add-on definitive confirmatory testing if clinically indicated. . Toxicology screening results are reported qualitatively. The concentration must be greater than or equal to the cutoff to be reported as positive. The concentration at which the screening test can detect an individual drug or metabolite varies. The absence of expected drug(s) and/or drug metabolite(s) may indicate non-compliance, inappropriate timing of specimen collection relative to drug administration, poor drug absorption, diluted/adulterated urine, or limitations of testing. For medical purposes only; not valid for forensic use. . Interpretive questions should be directed to the laboratory medical directors. Performed By: #### D RUG3 ####[facility] [place] [address] FENTANYL SCREEN,URINE Negative Normal NEGATIVE [facility] Comment on above: Result Comment: CUTO FF LEVEL: 1 NG/ML The performance characteristics of this test have been determined by the individual laboratory site where testing is performed. This test has not been cleared or approved by the FDA; however, the FDA has determined that such clearance is not necessary. Performed By: #### D RUG3 ####[address] [address] METHADONE SCREEN,U Negative Normal NEGATIVE [facility] Comment on above: Result Comment: CUTO FF LEVEL: 150 NG/ML The metabolite J-plgpj-zzssrtsyuvgobb (LAAM) is not detected by this method in concentrations that would be found in the urine of patients on LAAM therapy. Performed By: #### D RUG3 ####[place] [id number] OPIATES SCREEN,U Negative Normal NEGATIVE [facility] Comment on above: Result Comment: CUTO FF LEVEL: 300 NG/ML The opiate screen does not detect fentanyl, meperidine, or tramadol. Oxycodone is not consistently detected (refer to Oxycodone Screen, Urine result). Performed By: #### D RUG3 ####[address] [address] OXYCODONE SCREEN,U Negative Normal NEGATIVE [facility] Comment on above: Result Comment: CUTO FF LEVEL: 100 NG/ML This test will accurately detect both oxycodone and oxymorphone. Performed By: #### D RUG3 ####[address] [address] PCP SCREEN,U Negative Normal NEGATIVE [facility] Comment on above: Result Comment: CUTO FF LEVEL: 25 NG/ML Cross-reactivity has been reported with dextromethorphan. Performed By: #### D RUG3 ####[address] [address] Discharge Planning [id number] 0 06-30-2020 Discharge Planning Note2 Discharge Planning: Anticipated Discharge [id number] Discharge Planning 06/30/20 Pt plans to return home where he lives with his fiance and follow up with [facility]. He was to start with a new counselor July 19 or , as his prior one left. He accepted information on grief and grief support resources, as well as a journal for expression of feelings. KYLIE Ortiz Assessment: Discharge Planning Assessment [id number] Lives Withsignificant other; Alejandra(1) Living Arrangementsapartment(1) Anticipated Transition [place] Anticipated Discharge Facility/Level of Care NeedsHome Discharge Documentation: Discharge/Transfer Date/[id number] 15:45 Discharge Modeambulatory Discharged Accompanied Byparent Transportation Methodprivate car Valuables/Medications/Bel ongings Returnedyes Final DispositionHome Electronic Signatures: Yarelis Seth (ADRIAN) (Signed 30-Jun-2020 12:58) Authored: Discharge Planning, Assessment Ronnell Srinivasan (RN) (Signed 03-Jul-2020 16:31) Authored: Discharge Planning, Discharge Documentation Last Updated: 03-Jul-2020 16:31 by Ronnell Srinivasan (RN) References: 1. 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8 pound(s) Weight Methodstated Scale Typestanding Height in cm195.5 centimeter(s) Height Methodstated BMI (kg/m2)35.583 square meter RSP Based Care: How would you like to participate in your care staying updated with treatment plan: What is the number one concern for you during this hospitalization stress and I don't want another break down What is the most important thing we can do to support you during this hospitalization therapy and medications if needed Is there anything we need to know to best care for you none Substance: Current or Former Substance Use never: Cigarette/Tobacco(2), e-Cigarette/Vaping(2), Alcohol(2), Street Drugs(2) Health Mgmt: Symptoms/Conditions Managed at Homenone Barriers to Managing Healthfinancial resources Relationship/Environ: Resource/Environmental Concernsnone Primary Source of Support/Comfortsignifican t other; parent; sibling(s) Lives Withsignificant other Living Arrangementsapartment Services Anticipated at Transitionmental health services Anticipated Transition [place] Significant IndicatorsComplete Information Review: Allergies, Home Meds and Significant Events have been Reviewed and Verified with Patient/Familyyes ALLERGY, INTOLERANCE, ADVERSE EVENT: Allergies: No Known Allergies: Active Electronic Signatures: Marjan Hoffmann (MING PRN) (Signed 30-Jun-2020 14:39) Authored: Initial Info, General Health, RSP Based Care, Substance, Health Mgmt, Relationship/Environ, Additional Information Last Updated: 30-Jun-2020 14:39 by Marjan Hoffmann (MING PRN) References: 1. Data Referenced From Psychiatric Assessment - Social Work-Inpatient 30-Jun-2020 11:14 2. Data Referenced From Risk Screen - Adult Emergency 30-Jun-2020 07:55 Normal [facility] Provider Note - ED v2on 06-15 Provider Note - ED v2 Provider Note - ED v2: Chart Review: ED NOTES ED NOTES: HPI: Patient presents with suicidal thoughts. He denies any specific plan. He states he feels anxious and overwhelmed about living on his own with his fiance. He does work. He denies any diagnosed history of anxiety or depression but did previously see a therapist. He does not currently take any medication he states. He denies any overdose or ingestion. He appears well and nontoxic. He has no other complaints. ROS: GENERAL: Negative weakness, negative fatigue, negative chills, negative fever, INTEGUMENTARY: Negative rash. NEUROLOGIC: Negative headaches, negative syncope, negative seizures, negative weakness, negative tremor. ENT: Negative sore throat, negative rhinorrhea, negative difficulty swallowing. CARDIOVASCULAR: Negative chest pain, negative dyspnea, negative palpations, negative edema. RESPIRATORY: Negative dyspnea, negative wheezing, negative cough. GASTROINTESTINAL: Negative nausea, negative vomiting, negative hematemesis, negative abdominal pain. GENITOURINARY: Negative frequency, negative urgency, negative dysuria, negative flank pain. MUSCULOSKELETAL: Negative myalgia, negative joint pain, negative stiffness, negative weakness, negative back pain, negative neck pain. PSYCHIATRIC: Negative depression. Positive anxiety. PMH: As listed on the chart, reviewed. PSH: As listed on the chart, reviewed. Social History: As listed on the chart, reviewed. Physical Exam: General: The patient appears well and in no apparent distress. Patient is resting comfortably on cart. Skin: Warm, dry, no pallor noted. No rash. Head: Normocephalic, atraumatic Neck: Supple, nontender Eye: PERRLA, EOMI ENT: Moist mucus membranes, pharynx within normal limits Cardiovascular: Regular rate and rhythm, no murmurs Respiratory: Patient is in no distress, no accessory muscle use, lungs are clear to auscultation, no wheezing, rales or rhonchi Musculoskeletal: normal ROM, no deformity, no tenderness, no swelling. 2+ radial and DP pulses symmetric. GI: No tenderness to palpation, no masses appreciated. No rebound, guarding, or rigidity noted. Neurological: A&Ox3, normal strength and sensation. GCS 15. Psychiatric: Cooperative HISTORY OF PRESENTING ILLNESS DANIEL is a 25 year old Male and was seen by me at 30-Jun-2020 01:16 for a chief complaint of psychiatric evaluation (started Friday, thinks if he goes home he'll hurt himself, excessive stress, no plan, hasn't done anything to hurt himself, calm in triage, sees a therapist, not on any medication)(1). Triage Information: Most recent Vital Sign Value Date Temp (F): 97.8 06-30-2020 01:11 Temp (C): 36.6 06-30-2020 01:11 Heart Rate (beats/min): 91 06-30-2020 01:11 Respirations (breaths/min): 18 06-30-2020 01:11 SpO2 (%): 98 06-30-2020 01:11 BP Systolic (mm Hg): 167 06-30-2020 01:11 BP Diastolic (mm Hg): 110 06-30-2020 01:11 PAST MEDICAL HISTORY ATTESTATION: I have reviewed and confirmed nurse's/medic's notes for patient's medications, allergies, and medical, surgical, family and social history ALLERGIES/INTOLERANCES: Allergy Status Unknown HEALTH HISTORY: No documented data. OUTPATIENT MEDICATIONS: Home Medications Review Status for Reconciliation: N/A Med Status: N/A No documented data. SIGNIFICANT EVENTS: No documented data. MEDICAL DECISION MAKING/ED COURSE MDM/ED COURSE: Medical screening evaluation was ordered. EKG showed sinus rhythm with a rate of 92, nonspecific ST and T wave changes, no acute ischemic changes or arrhythmia. Normal intervals. No heart blocks. Urinalysis not consistent with infection. COVID-19 testing is negative. Remainder of laboratory analysis unremarkable. Patient made is medically clear for psychiatric evaluation. Patient accepted by Dr. Queen for admission to [facility]. Patient transferred in stable condition. CLINICAL IMPRESSION Diagnosis/Annotation: ED Dx Name:Suicidal thoughts Code:R45.851 Disposition: transferred ATTESTATION CRITICAL CARE TIME Is this a critically ill patient: no Electronic Signatures: Vincenzo Oneill) (Signed 30-Jun-2020 06:01) Authored: ED Notes, HPI, PMH, MDM/ED Course, Clinical Impression, Attestation, Chart Review, Scores Last Updated: 30-Jun-2020 06:01 by Vincenzo Oneill) References: 1. Data Referenced From Triage - ED 30-Jun-2020 01:11 Normal [facility] Risk Screen - Adult Emergenc yon 06-30-2020 Risk Screen - Adult Emergency Preferred Language: Preferred Language: Preferred Language for Discussing Health Care (patient/designee)Sami Advanced Directives: Advance Directive/DNRno Advance Directive Information Givenpatient/family declined Family Violence Adult: Abuse Screen: Are you or have you been threatened or abused physically, emotionally, or sexually by anyoneno Learning Assessment (Patient): Learning Assessment (Patient): Patient is Able to be Assessed for Learningyes Factors Influencing Readiness to Learnacuteness of illness Factors that Impact Ability to Learnnone Devices/Methods Used to Communicatenone Learning Preferencesaudio Cultural Considerationsnone Developmental Considerationsnone Scientologist Considerationsnone Learning Assessment (Other Learner): Learning Assessment (Other Learner): Other learner availableno Pressure Injury/TB/Substance: Pressure Injury: Pressure Injury Present on Admissionno Do you have a coughno Substance Use Current or Former Historynever: Cigarette/Tobacco, e-Cigarette/Vaping, Alcohol, Street Drugs Admission Risk Screen: Significant IndicatorsComplete CAGE: CAGE: Is this an injured patient at a Trauma Center ([facility]/[place]/ [place]): no Electronic Signatures: Eugenia Medeiros (RN) (Signed 30-Jun-2020 07:55) Authored: Preferred Language, Advanced Directives, Family Violence Adult, Learning Assessment (Patient), Learning Assessment (Other Learner), Pressure Injury/TB/Substance, Pressure Injury, CAGE Last Updated: 30-Jun-2020 07:55 by Eugenia Medeiros (RN) Normal [facility] Triage - EDon 06-30-2020 Triage - ED Chart Review: ARRIVAL INFORMATION Mode of Arrival: private vehicle CHIEF COMPLAINT DANIEL CARBAJAL is a Male patient with a chief complaint of psychiatric evaluation (started Friday, thinks if he goes home he'll hurt himself, excessive stress, no plan, hasn't done anything to hurt himself, calm in triage, sees a therapist, not on any medication). Triage Date/Time: 30-Jun-2020 01:11 HANANE: 2 Pain Rating (0-10): 0 = None Vital Signs: Temperature: 97.8F ( 36.6C) Blood Pressure: 167/110 Mean: Heart Rate: 91 Respiratory Rate: 18 Pulse Oximetry: 98% on room air, no respiratory support. Height: 6 feet 4 inches. 193.0 CM Weight: 308.6 pounds. Calculated 140.0 kg. (stated) Calculated BMI (kg/m2): 37.584 Calculated BSA (m2) 2.74 Ashley Coma Scale: Best Eye Response: (E4) spontaneous Best Motor Response: (M6) obeys commands Best Verbal Response: (V5) oriented Ashley Score: 15 Cough lasting greater than 3 weeks: no Allergies: no Patient has homicidal thoughts: no Risk Screens Suicide Risk Screen In the Past Month: Have you wished you were or wished you could go to sleep and not wake up no In the Past Month: Have you had any actual thoughts of killing yourself no In Your Lifetime: Have you ever done anything, started to do anything, or prepared to do anything to end your life no Meredith Fall Scale Screening Has the patient fallen before (or is the patient in the ED as a result of a fall) has not had a fall Does the patient have an impaired gait does not have impaired gait Is the patient cognitively impaired not cognitively impaired Interventions: Meredith Fall Interventions: LOW INTERVENTIONS: *patient oriented to surroundings and call system, * patient/family falls education completed and documented, *patients fall status communicated during bedside handoff, *whiteboard updated, *mode of toileting discussed with patient, *bed in low position with brakes locked, *call light in reach, * non-skid footwear TRAVEL HISTORY Travel History Coronavirus Screening: no exposure or symptoms PAIN Pain Scale Used: ADONIS Pain Rating (0-10): 0 = None Past Medical History: Past Medical History Reviewedyes Electronic Signatures: Sandy Aguilar (RN) (Signed 30-Jun-2020 05:05) Authored: Quick Triage Lexii Durbin (EMT) (Signed 30-Jun-2020 01:15) Authored: Quick Triage, Risk Screens, Pain, Chart Review, Past Medical History Steve Howell (RN) (Signed 30-Jun-2020 04:21) Authored: Quick Triage, Chart Review Last Updated: 30-Jun-2020 05:05 by Sandy Aguilar (RN) Normal [facility] URINALYSISon 06-30-2020 Appearance (U) CLEAR Normal CLEAR [facility] Comment on above: Performed By: #### U A #### [facility] [address] [place] [address] Bilirubin Ql (U) Negative Normal NEGATIVE [facility] Comment on above: Performed By: #### U A #### [facility] [address] [place] [address] Color (U) YELLOW Normal STRAW,YELLOW [facility] Comment on above: Performed By: #### U A #### [facility] [address] [place] [address] Glucose Ql (U) Negative Normal NEGATIVE [facility] Comment on above: Performed By: #### U A #### [facility] [address] [place] [address] Hemoglobin Ql (U) Negative Normal NEGATIVE [facility] Comment on above: Performed By: #### U A #### [address] [address] Ketones Ql (U) Negative Normal NEGATIVE [facility] Comment on above: Performed By: #### U A #### [address] [address] Leukocyte esterase Test strip Ql (U) Negative Normal NEGATIVE [facility] Comment on above: Performed By: #### U A #### [address] [address] Nitrite Ql (U) Negative Normal NEGATIVE [facility] Comment on above: Performed By: #### U A #### [address] [address] pH (U) 5.0 [pH] Normal 5.0 - 8.0 [facility] Comment on above: Performed By: #### U A #### [address] [address] Protein Ql (U) Negative Normal NEGATIVE [facility] Comment on above: Performed By: #### U A #### [address] [address] Specific gravity (U) [Rel density] 1.025 Normal 1.005 - 1.035 [facility] Comment on above: Performed By: #### U A #### [address] [address] Urobilinogen (U) [Mass/Vol] 2.0 mg/dL High 0.0 - 1.9 [facility] Comment on above: Result Comment: SOME PIGMENTS AND MEDICATIONS MAY CAUSE A FALSE POSITIVE UROBILINOGEN Performed By: #### U A #### [address] [place] [address] Encounters Encounter Date Encounter Type Care Provider Facility Start: 05-02-2022 Letter encounter [facility] Plan of Treatment Date Care Activity Detail Author Start: 2047 Shingles (RZV) Vacci ne (1 of 2) Shingles (RZV) Vaccine (1 of 2) [facility] Start: 12-15-2021 Influenza vaccination [facility] Start: 2015 Hepatitis C screening Hepatitis C An tibody [facility] Start: 2015 Tetanus + diphtheria + acellular pertussis vaccine (product) Tdap Booster [facility] Start: 01-28-2012 HIV screening HIV Test [facility] Start: 01-28-2008 Vaccination for susu n papillomavirus Human Papilloma (HPV) Vaccine (1 - Male 2-dose series) [facility] Start: 1997 COVID-19 Vaccine (#1) COVID-19 Vacci ne (#1) [facility] Immunizations Immunization Date Immunization Notes Care Provider Fa cility 01-14-2003 influenza virus vacc ine, unspecified formulation [facility] 05-31-2002 diphtheria, tetanus toxoids and acellular pertussis vaccine [facility] 05-31-2002 poliovirus vaccine, inactivated [facility] 02-12-2001 pneumococcal conjuga te vaccine, 7 valent [facility] 01-30-2001 influenza virus vacc ine, unspecified formulation [facility] 01-30-2001 measles, mumps and r ubella virus vaccine [facility] 01-30-2000 influenza virus vacc ine, unspecified formulation [facility] 02-22-1999 influenza virus vacc ine, unspecified formulation [facility] 01-24-1999 influenza virus vacc ine, unspecified formulation [facility] 08-11-1998 diphtheria, tetanus toxoids and acellular pertussis vaccine [facility] 05-04-1998 haemophilus influenz ae type b vaccine, HbOC conjugate [facility] 05-04-1998 measles, mumps and r ubella virus vaccine [facility] 02-04-1998 varicella virus vaccine [facility] 1997 hepatitis B vaccine, pediatric or pediatric/adolescent dosage [facility] 1997 diphtheria, tetanus toxoids and acellular pertussis vaccine [facility] 1997 haemophilus influenz ae type b vaccine, HbOC conjugate [facility] 1997 poliovirus vaccine, inactivated [facility] 1997 diphtheria, tetanus toxoids and acellular pertussis vaccine [facility] 1997 haemophilus influenz ae type b vaccine, HbOC conjugate [facility] 1997 poliovirus vaccine, inactivated [facility] 1997 diphtheria, tetanus toxoids and acellular pertussis vaccine [facility] 1997 haemophilus influenz ae type b vaccine, HbOC conjugate [facility] 1997 poliovirus vaccine, inactivated [facility] 1997 hepatitis B vaccine, pediatric or pediatric/adolescent dosage [facility] 1997 hepatitis B vaccine, pediatric or pediatric/adolescent dosage [facility] Payers Date Payer Category Payer Unknown [facility] [id number] 2019-Present [address] [place] [address] [facility] [id number] Social History Date Type Detail Facility Tobacco smoking stat [facility] Tobacco smoking consumption unknown [facility] Start: 1997 Sex Assigned At Not on file [facility] Discharge summary note 07-03-2020 Note Date & Type Note Facility 07-03-2020 Note Send Summary: Note Recipients: na Discharge: Summary: Admission Date: .30-Jun-2020 10:23:00 Discharge Date: 03-Jul-2020 Attending Physician at Discharge: Ernesto Queen Admission Reason: SI(1) Final Discharge Diagnoses: Bipolar affective disorder, depressed, severe Procedures: none Condition at Discharge: Satisfactory Disposition at Discharge: .Home Hospital Course: Hospital course: patient was admitted for evaluation and treatment. Medication management and therapy were provided to patient. Patient's condition improved. Patient denies suicidal/homicidal ideation. Patient verbalized readiness for discharge. Patient was evaluated by the treatment team and judged to be appropriate for discharge. Patient reports that is supportive, plans to follow up w/ [facility] MENTAL STATUS EXAMINATION: Alert, oriented x3. Appearance: casual Gait: steady Motor Activity: no psychomotor agitation or retardation Speech: normal Language: normal Mood and affect: improved. Thought process/associations: no loose associations. linear Thought contents: future-oriented. Patient denies having any thoughts or plans to harm self or others, denies SI/HI. Perception: Patient denies having delusions or hallucinations Concentration: intact Cognition: intact Memory (short term/long-term): intact Insight and Judgement: fair Psychiatric Care: Psychiatric Continuing Care Plan: Discharge Destination: home(2) Advance Directive/DNR: no (2) Additional Resources for Patient and Family: [facility] Tobacco Use: Screening: Was the patient screened within the first 3 days of admission for tobacco use (cigarettes, smokeless tobacco, pipe, and cigar) within the previous 30 days: patient refused (2) This patient is being discharged on multiple antipsychotic medications: no: Take all medications until outpatient provider advises otherwise. (2) Questions After Hospitalization: Phone Number: Melly Kelly (2) For Results of Any Studies Pending at Discharge: Phone: [place] (2) Advance Directives: Advance Directive (Medical)no(2) Advance Directive Information Givenpatient/family declined (2) Reason No Advance Directive (Medical)did not wish to discuss adv directive/surrogate(2) Advance Directive (Mental Health)no (2) Advance Directive Information Given (Mental Health)patient/family declined(2) Reason No Advance Directive (Mental Health)did not wish to discuss adv directive/surrogate(2) Transition Record: Transition Record Discussed: All 11 elements of this patients transition record were discussed with the patient/caregiver and the Next Level of Care Provider(2) Transition Record Given: A copy of the transition record was given to the patient and was transmitted to the Next Level of Care Provider(2) Discharge Information: and Continuing Care: Lab Results - Pending: None Radiology Results - Pending: None Discharge Instructions: Nutrition/Diet: low fat, low sodium Additional Orders: Vital Signs: Daily Please take BP daily Additional Instructions: --You are being discharged home. You were prescribed a dose of Norvasc 10mg for your elevated BP. It is a good idea to check your BP in the morning and 1 hour after taking this medication. Hold the medication if your SBP < 100 and contact your PCP. While your blood pressure adjusts, you are at risk for falls. Please take your time to stand and change positions. -- Please follow up with your PCP within 1 week of today for further examination of your blood pressure and other medications. If you have any questions, please contact your PCP or pharmacist. -- Please engage in a healthy lifestyle, low salt, low fat diet. Engage in healthy activities. Avoid smoking or use of illicit drugs and alcohol. Your nurse will go over the new medication with you. Follow Up Appointments: Follow-Up Appointment 01: Physician/Dept/Service: [facility] Reason for Referral: Follow up appt Scheduled Date/Time: 20-Jul-2020 16:00 Location: Telehealth appt Follow-Up Appointment 02: Physician/Dept/Service: Dr. Angela - PCP Reason for Referral: Blood pressure follow up / GERD follow up Scheduled Date/Time: 05-Jul-2020 10:00 Location: [address] [place] [address] [address], [place] [address] Discharge Medications: Home Medication OXcarbazepine 150 mg oral tablet - 1 tab(s) orally 2 times a day sertraline 50 mg oral tablet - 1 tab(s) orally once a day pantoprazole 40 mg oral delayed release tablet - 1 tab(s) orally once a day Norvasc 10 mg oral tablet - 1 tab(s) orally once a day PRN Medication Issues to Discuss at Follow-up / Goals for Continuing Care: medication management attending follow up continue therapy safety plan (more content not included)... [facility] Clinical Note 07-01-2020 Note Date & Type Note Facility 07-01-2020 Note History Present Illn ess: Admission Reason: Suicidal thoughts HPI: PER EPAT: Pt, who is a 25 year old male, presents to the [facility] with a chief complaint of suicidal ideation. Prior to assessment, pt's EMR including; Provider note, triage note, and community record were reviewed. Today, pt was brought to the ED by his fiancee. They had been arguing because his fiancee was concerned about pt's recent mental health and pt was not reacting well to her confrontation. He eventually broke down and became inconsolable for 15 or so minutes and that's when I realized I needed serious help. On arrival to the ED, pt told triage ED that if he goes home he'll hurt himself. EPAT was consulted for further evaluation. During interview: Pt report feeling depressed and anxious Hopeless and worthless Numerous stressor including relationship and financial Passive SI Psychiatric Review of Symptoms: Anxiety: GRACE General Anxiety Disorder: difficult to control worry, excessive anxiety/worry Depression: concentration, energy, helpless, hopeless, persistant thoughts of Daja: mood swings Past Psychiatric History: Past Psychiatric History: Pt has a self reported past psychiatric history of depression and anxiety. He had been working with a therapist for the past year at [facility] but when his therapist left the agency, he was unable to secure a new appointment until Jul, 2020 and I just can't wait that long. Pt has never taken psychotropic medications. Pt denied previous suicide attempts. Social History: Smoking Statusunable to assess Alcohol Usedenies, Pt reported that he stopped drinking because he believed he was drinking too often. I 'm a recovery alcoholic, so I am trying not to [drink] Drug Usedenies Occupation[employer] Social History Pt currently resides with his fihugoe. They have been together for 2 years and living together since March,. Since moving in together, he has drained my savings taking their cats to the vet for various health problems. He has been working double shifts to cover the losses but his fiancee is upset that he is always working. Pt has little family support and feels overwhelmed by his current obligations. Allergies: No Known Allergies: Medications Prior to Admission: Outpatient Meds have not been reviewed. OARRS Review: OARRS checked: no Objective: Objective Information: T PRBPSpO2 [id number]/8897% Date/Time07/01 10: 10: 10: 10: 10:07 Range(37C - 37.1C ) (61 - 98 ) (16 - 20 ) (148 - 190 )/ (82 - 112 ) (97% - 100% ) Highest temp of 37.1 C was recorded at 06/30 20:25 Mental Status Exam: General: Appropriately groomed and dressed. Appearance: Appears stated age. Behavior: Appropriate eye contact. Motor Activity: No agitation or retardation. No EPS/TD. Normal gait. Speech: Regular rate, rhythm, volume and tone, spontaneous, fluent. Mood: depressed Affect: restricted Thought Perception: Does not endorse auditory or visual hallucinations, does not appear to be responding to hallucinatory stimuli. Insight: Good, as patient recognizes symptoms of illness and need for recommended treatments. Medications: Medications: Continuous Medications No continuous medications are active Scheduled Medications None PRN Medications 1. Acetaminophen: 650 mg Oral Every 4 Hours 2. Benztropine: 1 mg Oral Every 4 Hours 3. Benztropine Injectable: 1 mg IntraMuscular 4 Times a Day 4. Haloperidol Lactate: 5 mg Oral Every 6 Hours 5. Haloperidol Lactate Injectable: 5 mg IntraMuscular Every 6 Hours 6. hydrOXYzine Pamoate (VISTARIL): 25 mg Oral Every 6 Hours 7. Ibuprofen: 400 mg Oral Every 6 Hours 8. LORazepam: 0.5 mg Oral Every 6 Hours 9. LORazepam Injectable: 0.5 mg IntraMuscular Every 6 Hours 10. Magnesium Hydroxide -Al Hydrox -Simethicone Oral Liquid: 30 mL Oral Every 6 Hours 11. Magnesium Hydroxide Oral Liquid CONCENTRATE: 10 mL Oral Every 24 Hours Assessment and Plan: Assessment: Bipolar depression Informed consent: discussed with patient the risks, benefits and alternatives including FDA black box warning of treatment provided. Informed consent was given. Patient has capacity to participate in informed consent. Treatment Plan: Continue treatment Medication management Utilize PRN medications if needed, monitor for side effects. Therapy as appropriate Encourage participation in group therapy Staff is to obtain collateral information Staff is to monitor patient for safety Encourage abstaining from alcohol and drugs See chart for details. Signature/Cosignature/Attestation: Note Completion: Attending Provider Inpatient Certification StatementI certify this pa (more content not included)... [facility] Summary Purpose Family History No Family History Records FoundNo Family History Records Found Advance Directives No Advanced Directives Records FoundNo Advanced Directives Records Found Additional Source Comments (unrecognized sect ion and content) No Status Records FoundNo Status Records Found INFORMATION SOURCE (unrecogn ized section and content) DATE CREATED AUTHOR 07/06/2020 [facility] DATE CREATED AUTHOR AUTHORWalter PATRICK 07/18/2020 [facility] FOR RECORDS PERTAINING TO PATIENTS WHO ARE OR HAVE BEEN ENROLLED IN A CHEMICAL DEPENDENCY/SUBSTANCEABUSE PROGRAM, SOME INFORMATION MAY BE OMITTED. This clinical summary was aggregated from multiple sources. Caution should be exercised in using it in the provision of clinical care. This summary normalizes information from multiple sources, and as a consequence, information in this document may materially change the coding, format and clinical context of patient data. In addition, data may be omitted in some cases. CLINICAL DECISIONS SHOULD BE BASED ON THE PRIMARY CLINICAL RECORDS. [facility]. provides no warranty or guarantee of the accuracy or completeness of information in this document.
[2023-08-25 20:39] VITALS: BP 210/130; PULSE 60; TEMP 36.6; O2SAT 99; BMI 35.3
--- NOTE | 2023-08-25 21:19 | CT_ITS ---
The [address] [address] Patient Name: MIGDALIA GARAY MRN: [facility]:[id number] date: 1995 Sex: M Assigned Patient Location: ER Current Patient Location: ER Accession/Order Number: [id number] Exam Date: 08/25/2023 22:30 Report Date: 08/25/2023 23:07 At the request of: EARL HERNANDEZ Procedure: CT abdomen pelvis w con EXAM: CT abdomen pelvis w con HISTORY: right sided pain, history of colitis COMPARISON: 05/19/2023 TECHNIQUE: Axial CT imaging was performed through the abdomen and pelvis with intravenous contrast. Multiplanar reformats were performed. Dose reduction techniques were achieved by using automated exposure control and/or adjustment of mA and/or kV according to patient size and/or use of iterative reconstruction technique. FINDINGS: Lung bases: Lung bases are clear. No pleural effusion. GI upper: Unremarkable. Liver: Normal size and contour. Gallbladder: Pericholecystic fluid. The gallbladder is not distended.. No cholelithiasis. Biliary system: No intra or extrahepatic biliary ductal dilatation. Spleen: Normal size. Pancreas: Unremarkable. Adrenal glands: Normal adrenal glands. Kidneys/ureters: Normal contours. No hydronephrosis. No nephrolithiasis or ureterolithiasis. Vessels: No aneurysm. Lymph Nodes: Prominent lymph nodes in the right upper and lower abdomen, nonspecific and may represent mesenteric adenitis. Small bowel: No wall thickening or dilatation. No CT evidence of enteritis. Colon: No wall thickening or dilatation. No CT evidence of colitis. Appendix: Appendix is identified with normal appearance. Peritoneal cavity: No free fluid or pneumoperitoneum. Lower : Unremarkable. Bones: No acute bony abnormality. Soft tissues: No acute finding. Additional findings: None. CT/CT abdomen pelvis w con IMPRESSION: Nondistended gallbladder with pericholecystic fluid. Finding is nonspecific. Correlation with abdominal ultrasound is recommended. Prominent lymph nodes in the right upper and lower abdomen, nonspecific and may represent mesenteric adenitis. Electronically authenticated by: BRANDI LMEA Date: 08/25/2023 23:07
--- NOTE | 2023-08-25 21:21 | ED_ITS ---
HPI - Abdominal Pain General Chief Complaint: Abdominal Pain Stated Complaint: abdominal pain Time Seen by Provider: 08/25/23 21:13 Source: patient Mode of arrival: walk-in Limitations: no limitations History of Present Illness HPI narrative: 28-year-old male presents for right-sided abdominal pain. He does not have any flank pain. It started at about 3:00 this afternoon. He has had colitis before and he states it feels similar. He had 1 episode of diarrhea without melena or hematochezia. He vomited and is nauseous. No trauma or fever. Related Data Home Medications ?Medication ?Instructions ?Recorded ?Confirmed No Known Home Medications 05/19/23 05/19/23 Allergies Allergy/AdvReac Type Severity Reaction Status Date / Time No Known Drug Allergies Allergy Verified 08/25/23 20:46 Review of Systems ROS Narrative A ten point review of systems is negative except as noted above. PFSH PFS Social History Smoking status: Current some day smoker Exam Narrative Exam Narrative: Nurses note and vital signs reviewed and patient is not hypoxic. General: The patient appears uncomfortable Skin: Warm, dry, no pallor noted. There is no rash noted. Head: Normocephalic, atraumatic Eye: Normal conjunctiva, no drainage Ears, Nose, Mouth, and Throat: oral mucosa is moist. Nares patent. Cardiovascular: Regular Rate and Rhythm Respiratory: Patient is in no distress, no accessory muscle use, lungs are clear to auscultation, no wheezing, rales or rhonchi Back: non-tender GI: Normal bowel sounds, mild tenderness to palpation of the right side without distention or mass. No tenderness on the left side Musculoskeletal: The patient has no evidence of calf tenderness, no pitting edema, symmetrical pulses noted bilaterally Neurological: A&O, normal speech Psychiatric: Cooperative Constitutional Vital Signs, click to edit/add: Last Vital Signs Temp 98 F 08/25/23 20:39 Pulse 60 08/25/23 20:39 Resp 08/25/23 20:39 BP 187/112 H 08/26/23 00:40 Pulse Ox 99 08/25/23 20:39 O2 Del Method Room Air 08/25/23 20:39 Course Vital Signs Vital signs: Vital Signs Temperature 98 F 08/25/23 20:39 Pulse Rate 60 08/25/23 20:39 Respiratory Rate 08/25/23 20:39 Blood Pressure 210/130 H 08/25/23 20:39 Pulse Oximetry 99 08/25/23 20:39 Oxygen Delivery Method Room Air 08/25/23 20:39 Temperature 98 F 08/25/23 20:39 Pulse Rate 60 08/25/23 20:39 Respiratory Rate 20 08/25/23 20:39 Blood Pressure 187/112 H 08/26/23 00:40 Pulse Oximetry 99 08/25/23 20:39 Oxygen Delivery Method Room Air 08/25/23 20:39 MDM - Abdominal Pain MDM Narrative Medical decision making narrative: CAT scan shows no evidence of colitis but shows nonspecific pericholecystic fluid. Ultrasound recommended. The patient's blood pressure was elevated upon arrival. He was given IV hydralazine and there seems to be improvement. He will be admitted for blood pressure control to the ICU and he will need a gallbladder ultrasound in the morning. LFTs, amylase and lipase are essentially normal. Treatment diagnosis and disposition were discussed with the patient. Differential Diagnosis Differential diagnosis: Likely abdominal pain, constipation, gastroenteritis, pancreatitis, small bowel obstruction and other (Colitis) Lab Data Attestation: I reviewed the patient's lab results. Labs: Lab Results 08/25/23 08/26/23 Range/Units 21:30 00:05 WBC 11.2 H (4.0-11.0) 10^3/uL RBC 5.27 (4.70-6.10) 10^6/uL Hgb 14.4 (14.0-18.0) g/dL Hct 42.9 (42.0-54.0) % MCV 81.4 (80.0-94.0) fL MCH 27.3 (25.9-34.0) pg MCHC 33.6 (29.9-35.2) g/dL RDW 12.6 (11.0-15.0) % Plt Count 257 (150-450) 10^3/uL MPV 10.4 (9.5-13.5) fL Neut % (Auto) 69.3 (43.0-75.0) % Lymph % (Auto) 22.8 (20.5-60.0) % [place] % (Auto) 5.5 (1.7-12.0) % Eos % (Auto) 1.8 (0.9-7.0) % Baso % (Auto) 0.4 (0.2-2.0) % Neut # (Auto) 7.7 H (1.4-6.5) 10^3/uL Lymph # (Auto) 2.6 (1.2-3.8) 10^3/uL [place] # (Auto) 0.6 (0.3-0.8) 10^3/uL Eos # (Auto) 0.2 (0.0-0.7) 10^3/uL Baso # (Auto) 0.1 (0.0-0.1) 10^3/uL Abs Immat Gran (auto) 0.02 (0.00-0.03) 10^3/uL Imm/Tot Granulo (auto) 0.2 (0.0-0.5) % Sodium 142 (136-145) mmol/L Potassium 4.3 (3.5-5.1) mmol/L Chloride 105 (98-107) mmol/L Carbon Dioxide 29.6 (21.0-32.0) mmol/L Anion Gap 11.7 BUN 13.0 (7.0-18.0) mg/dL Creatinine 0.88 (0.70-1.30) mg/dL Est GFR ( Amer) >60 (>=60) Est GFR (Non-Af Amer) >60 (>=60) BUN/Creatinine Ratio 14.8 Glucose 101 (74-106) mg/dL Calcium 9.4 (8.5-10.1) mg/dL Total Bilirubin 0.7 (0.2-1.0) mg/dL Direct Bilirubin 0.1 (0.0-0.2) mg/dL AST 79 H (15-37) U/L ALT 89 H (16-63) U/L Alkaline Phosphatase 97 (46-116) U/L Total Protein 7.3 (6.4-8.2) g/dL Albumin 4.2 (3.4-5.0) g/dL Globulin 3.1 g/dL Albumin/Globulin Ratio 1.4 Amylase 62 (25-115) U/L Lipase 30.0 (16.0-77.0) U/L Urine Color Lt. yellow (YELLOW) Urine Clarity Clear (CLEAR) Urine pH 8.0 (5.0-9.0) Ur Specific [place] 1.015 (1.005-1.025) Urine Protein Negative (NEG/TRACE) mg/dL Urine Glucose (UA) Negative (NEGATIVE) mg/dL Urine Ketones 15 A (NEGATIVE) mg/dL Urine Occult Blood Negative (NEGATIVE) Urine Nitrite Negative (NEGATIVE) Urine Bilirubin Negative (NEGATIVE) Urine Urobilinogen 0.2 (0.2-1.0) EU/dL Ur Leukocyte Esterase Negative (NEGATIVE) Urine RBC 0-2 (0-2) #/HPF Urine WBC None seen (NONE SEEN) #/HPF Ur Squamous Epith Cells None seen (NONE/RARE) #/LPF Urine Crystals Seen A (None Seen) #/HPF Amorphous Sediment Many Urine Bacteria None seen (NONE SEEN) #/HPF Urine Casts None seen (NONE SEEN) #/LPF Urine Mucus None seen (NONE SEEN) Imaging Data CT scan - abdomen: Radiologist's impression: ITS Impressions Abdomen/Pelvis CT 08/25/23 21:19 IMPRESSION: Nondistended gallbladder with pericholecystic fluid. Finding is nonspecific. Correlation with abdominal ultrasound is recommended. Prominent lymph nodes in the right upper and lower abdomen, nonspecific and may represent mesenteric adenitis. Electronically authenticated by: BRANDI LEMA Date: 08/25/2023 23:07 ECG Data Attestation: I personally reviewed and interpreted this ECG as follows: (EKG on my interpretation shows normal sinus rhythm with a rate of 82 and no acute change.) Critical Care Time Critical Care Time Critical Care Time: Yes Total Critical Care Time: 45 Attestation: Due to the high probability of sudden and clinically significant deterioration in the patient's condition he/she required the highest level of my preparedness to intervene urgently I provided critical care time including documentation ti me, medication orders and management, reevaluation, vital sign assessment, ordering and reviewing of lab tests, ordering and reviewing of x-ray studies, and admission orders. Aggregate critical care time is 45 minutes including only time during which I was engaged in work directly related to his/her care and did not include time spent treating other patients simultaneously. Discharge Plan Discharge Chief Complaint: Abdominal Pain Clinical Impression: Uncontrolled hypertension Patient Disposition: Admitted as Observation Time of Disposition Decision: 01:22 Condition: Good Prescriptions / Home Meds: No Action No Known Home Medications Print Language: Mohawk Referrals: Physician,Non-Staff, MD [Primary Care Provider] - 1 week
[2023-08-25 21:39] LABS: Basophils Absolute Auto 0.1 10^3/uL (0.0-0.1); Basophils Percent Auto 0.4 % (0.2-2.0); Eosinophils Absolute Auto 0.2 10^3/uL (0.0-0.7); Eosinophils Percent Auto 1.8 % (0.9-7.0); Hematocrit 42.9 % (42.0-54.0); Hemoglobin 14.4 g/dL (14.0-18.0); Immature Granulocytes Abs Auto 0.02 10^3/uL (0.00-0.03); Immature Granulocytes Pct Auto 0.2 % (0.0-0.5); Lymphocytes Absolute Auto 2.6 10^3/uL (1.2-3.8); Lymphocytes Percent Auto 22.8 % (20.5-60.0); Mean Corpuscular HGB Conc 33.6 g/dL (29.9-35.2); Mean Corpuscular Hemoglobin 27.3 pg (25.9-34.0); Mean Corpuscular Volume 81.4 fL (80.0-94.0); Mean Platelet Volume 10.4 fL (9.5-13.5); Monocytes Absolute Auto 0.6 10^3/uL (0.3-0.8); Monocytes Percent Auto 5.5 % (1.7-12.0); Neutrophils Absolute Auto 7.7 10^3/uL (1.4-6.5); Neutrophils Percent Auto 69.3 % (43.0-75.0); Platelet Count 257 10^3/uL (150-450); Red Blood Count 5.27 10^6/uL (4.70-6.10); Red Cell Distribution Width 12.6 % (11.0-15.0); White Blood Count 11.2 10^3/uL (4.0-11.0)
[2023-08-25 21:56] LABS: Alanine Aminotransferase 89 U/L (16-63); Albumin Globulin Ratio 1.4; Albumin Level 4.2 g/dL (3.4-5.0); Alkaline Phosphatase 97 U/L (46-116); Amylase 62 U/L (25-115); Anion Gap 11.7; Aspartate Amino Transferase 79 U/L (15-37); BUN Creatinine Ratio 14.8; Bilirubin Direct 0.1 mg/dL (0.0-0.2); Bilirubin Total 0.7 mg/dL (0.2-1.0); Calcium 9.4 mg/dL (8.5-10.1); Carbon Dioxide 29.6 mmol/L (21.0-32.0); Chloride 105 mmol/L (98-107); Estimated GFR (African America >60 (>=60); Estimated GFR (Non-African Ame >60 (>=60); Globulin 3.1 g/dL; Glucose 101 mg/dL (74-106); Potassium 4.3 mmol/L (3.5-5.1); Sodium 142 mmol/L (136-145); Total Protein 7.3 g/dL (6.4-8.2)
[2023-08-25] MEDS: ONDANSETRON PF 4 MG/2 ML VIAL IV (22:01)
[2023-08-25] MEDS: MORPHINE SULFATE 4 MG/ML VIAL IV (22:01)
[2023-08-26] VITALS (98 sets, daily range): BP systolic 121–210; BP diastolic 65–116; PULSE 61–107; TEMP 36.5–37.5; O2SAT 79–100; BMI 35.3
[2023-08-26] MEDS: HYDRALAZINE HCL 20 MG/ML VIAL 10 MG IVP ×2 (00:13→09:24)
[2023-08-26 00:27] LABS: Bilirubin Urine NEGATIVE (NEGATIVE); Blood Urine NEGATIVE (NEGATIVE); Clarity Urine CLEAR (CLEAR); Color Urine LT. YELLOW (YELLOW); Glucose Urine UA NEGATIVE (NEGATIVE); Ketones Urine 15 mg/dL (NEGATIVE); Leukocyte Esterase Urine NEGATIVE (NEGATIVE); Nitrite Urine NEGATIVE (NEGATIVE); Protein Urine NEGATIVE (NEG/TRACE); Specific Gravity Urine 1.015 (1.005-1.025); Urobilinogen Urine 0.2 EU/dL (0.2-1.0)
[2023-08-26 00:36] LABS: Amorphous Sediment Urine MANY; Bacteria Urine NONE SEEN #/HPF (NONE SEEN); Cast Seen? NONE SEEN #/LPF (NONE SEEN); Crystals Seen? Seen #/HPF (None Seen); Mucus Urine NONE SEEN (NONE SEEN); RBC Urine 0-2 #/HPF (0-2); Squamous Epithelial Cell Urine NONE SEEN #/LPF (NONE/RARE); WBC Urine NONE SEEN #/HPF (NONE SEEN)
[2023-08-26] MEDS: MORPHINE SULFATE 4 MG/ML VIAL IV ×2 (00:40→03:00)
[2023-08-26] MEDS: HYDRALAZINE HCL 20 MG/ML VIAL IVP (00:40)
--- NOTE | 2023-08-26 01:11 | ECG_ITS ---
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
[2023-08-26] MEDS: ONDANSETRON PF 4 MG/2 ML VIAL IV ×2 (01:42→09:28)
[2023-08-26] MEDS: LACTATED RINGER'S SOLUTION 1,000 ML 125 ML IV ×2 (01:42→09:28)
--- OUTSIDE RECORDS SUMMARY | 2023-08-26 01:43 | XMS_ITS ---
Patient Summarization (C-CDA 2.1 CCD) Created on: August 26, 2023 Daniel Carbajal : 1995 Sex: Male Author Organization Sample organization Care Team Providers Care Block Mason Name Role Phone Unavailable Primary Care Provider Unavailabl e Encounters Encounter Date Encounter Type Care Provider Facility Start: 05-02-2022 Letter encounter [facility] ealt Immunizations Immunization Date Immunization Notes Care Provider Fa [facility] 01-14-2003 influenza virus vacc ine, unspecified formulation [facility] 05-31-2002 diphtheria, tetanus toxoids and acellular pertussis vaccine [facility] 05-31-2002 poliovirus vaccine, inactivated [facility] 02-12-2001 pneumococcal conjuga te vaccine, 7 valent [facility] 01-30-2001 influenza virus vacc ine, unspecified formulation [facility] 01-30-2001 measles, mumps and r ubella virus vaccine [facility] 01-30-2000 influenza virus vacc ine, unspecified formulation [facility] 02-22-1999 influenza virus vacc ine, unspecified formulation [facility] 01-24-1999 influenza virus vacc ine, unspecified formulation [facility] 08-11-1998 diphtheria, tetanus toxoids and acellular pertussis vaccine [facility] 05-04-1998 haemophilus influenz ae type b vaccine, HbOC conjugate [facility] 05-04-1998 measles, mumps and r ubella virus vaccine [facility] 02-04-1998 [facility]ella [facility] hepatitis B vaccine, pediatric or pediatric/adolescent dosage [facility] 1995 diphtheria, tetanus toxoids and acellular pertussis vaccine [facility] 1995 haemophilus influenz ae type b vaccine, HbOC conjugate [facility] 1995 poliovirus vaccine, inactivated [facility] 1995 diphtheria, tetanus toxoids and acellular pertussis vaccine [facility] 1995 haemophilus influenz ae type b vaccine, HbOC conjugate [facility] 1995 poliovirus vaccine, inactivated [facility] 1995 diphtheria, tetanus toxoids and acellular pertussis vaccine [facility] 1995 haemophilus influenz ae type b vaccine, HbOC conjugate [facility] 1995 poliovirus vaccine, inactivated [facility] 1995 hepatitis B vaccine, pediatric or pediatric/adolescent dosage [facility] 1995 hepatitis B vaccine, pediatric or pediatric/adolescent dosage [facility] Payers Date Payer Category Payer Unknown MEDFLEX - HOS P ONLY MEDFLEX - HOSP ONLY [id number] 2019-Present [address] [place] [address] O [id number] Plan of Treatment Date Care Activity Detail Author Start: 2047 Shingles (RZV) Vacci ne (1 of 2) Shingles (RZV) Vaccine (1 of 2) [facility] Start: 12-15-2021 Influenza vaccination Influenza Vacc ine (#1) [facility] Start: 2015 Hepatitis C screening Hepatitis C An tibody [facility] Start: 2015 Tetanus + diphtheria + acellular pertussis vaccine (product) Tdap Booster [facility] Start: 01-28-2012 HIV screening HIV Test [facility] Start: 01-28-2008 Vaccination for susu n papillomavirus Human Papilloma (HPV) Vaccine (1 - Male 2-dose series) [facility] Start: 1995 COVID-19 Vaccine (#1) COVID-19 Vacci ne (#1) [facility] Results Test Name Value Interpretation Reference Range [...] night. Objective Data: Objective Information: T PRBPSpO2 [id number]/9199% Date/Time07/03 8: 15: 15: 15: 15:10 Range(36.4C - 36.4C ) (78 - 87 ) (16 - 18 ) (139 - 170 )/ (88 - 111 ) (99% - 100% ) Pain reported at 07/03 9:45: 0 = None T PRBPSpO2 Value36.37962889/9199% Date/Time07/03 8: 15: 15: 15: 15:10 Range(36.4C [...] document was written with the use of Woop!Wear, a voice recognition program. Please excuse any errors in documentation. Electronic Signatures: Kristi Sanchez ([employer]ING [employer] OPERATOR) (Signed 03-Jul-2020 21:20) Authored: Service, Subjective Data, Objective Data, Assessment and Plan, Note Completion Last Updated: 03-Jul-2020 21:20 by Kristi Sanchez ([employer]ING [employer] OPERATOR) Normal [facility] Discharge [id number] Discharge Profile2 Discharge Orders: Anticipated Discharge Date: Anticipated Discharge [id number] Anticipated Discharge Time12:14 Problem List: Admitting Dx: Bipolar affective disorder, depressed, severe: Catalog Name: Bipolar disorder, current episode depressed, severe, without psychotic features DNAR: DNAR Status: none Psychiatric Continuing Care Plan: Discharge Destination: home Advance Directive/DNR: no Additional Resources for Patient and Family: [facility] Tobacco Use: Screening: Was the patient screened within the first 3 days of admission for tobacco use (cigarettes, smokeless tobacco, pipe, and cigar) within the previous 30 days: patient refused This patient is being discharged on multiple antipsychotic medications: no: Take all medications until outpatient provider advises otherwise. Questions After Hospitalization: Phone Number: [phone] Media For Results of Any Studies Pending at Discharge: Phone: [phone] Media Advance Directives: Advance Directive (Medical)no Advance Directive [...] Review of Medication Reconciliation and Orders Completedby NICOLETTE Reviewing ProviderKLARISSA Calles at 03-Jul-2020 12:14:33 Appointments: [facility] Reason [facility] ReferralFollow up appt Scheduled Date/[id number] 16:[facility] [phone] CommentsPlease answer all private and unknown calls on the day of the appt. Follow-Up Appointment 02[facility] Reason for ReferralBlood pressure follow up / GERD follow up Call to Schedule in2-3 days CommentsNursing Staff to schedule appoitment Electronic Signatures: Marce Zhou (NICOLETTE-SANTHOSH) (Signed 03-Jul-2020 12:14) Authored: Discharge Orders, Psychiatric Continuing Care Plan, Provider FINAL REVIEW of Orders Kristi Sanchez (KLARISSA) (Signed 03-Jul-2020 11:44) Authored: Discharge Orders, Appointments Cooper Newton ([facility]) (Signed 03-Jul-2020 11:08) Authored: Discharge Orders, Appointments, Gold Form - Hedis Review Nurse Summary Last Updated: 03-Jul-2020 12:14 by Marce Zhou ([facility]) [facility] Order Reconciliationon 07-03 Order Reconciliation Page 1 Discharge Reconciliation Document Reconciliation Type: Discharge requested on behalf of Kristi Sanchez (Advanced Practice Nurse) done by Kristi Sanchez ([facility]) Discharge - Partial Reconciliation: 03-Jul-2020 12:13 by: Marce Zhou ([facility]) Discharge - Reconciliation: 03-Jul-2020 13:29 by: Kristi Sanchez ([facility]) Current OrdersDateHOME MEDICATIONS AT DISCHARGE DateReconciliation Comment/ [...] be shared with your follow-up providers (doctor, vitreo retinal surgeon, physical therapist, etc.). Guidelines for a Healthy [...] providers ( (more content not included)... Normal [facility] Consult-General Internal Med sandhya 07-02-2020 Consult-General Internal Medicine Service: Service: General Internal Medicine Consult: Consult requested by (Attending Name): Ernesto Queen Reason: H & P History of Present Illness: Admission Reason: SI HPI: PER EPAT: Pt, who is a 25 year old male, presents to the [place] ED with a chief complaint of suicidal [...] a therapist for the past year at [facility] for effective living but when his therapist left the agency, he was unable to secure a new appointment until Jul, 2020 and I just can't wait that long. Pt has never taken psychotropic medications. Pt denied previous suicide attempts. Pt currently resides with his fiancee. They have been together for 2 years [...] Known Allergies: Objective: Objective Information: T PRBPSpO2 [id number]/8498% Date/Time07/02 9:114 12: 12: 12: 12:24 Range(36.5C - 36.5C ) (68 - 97 ) (18 - 18 ) (163 - 180 )/ (84 - 107 ) (97% - 99% ) Physical Exam by System: Constitutional: Well developed, awake/alert/oriented x3, no distress, alert and cooperative Eyes: PERRL, EOMI, clear sclera ENMT: mucous membranes zac (more content not included)... Normal [facility] Daily Progress Note - Psychi atryon 07-02-2020 Daily Progress Note - Psychiatry Subjective Data: LAYNECHALO DANIEL Snow is a 25 year old Male who is Hospital Day # 3. Additional Information: Pt SEEN D/W TEAM Report feeling much better today Seen reading book and his concentration is better Sleep and appetite good No negative thinking or suicidal thoughts No hopeless or worthless feeling Objective: Objective Information: T PRBPSpO2 [id number]/89342% Date/Time4/18 9:114/18 9:114/18 9:114/18 9:114/18 9:11 Range(36.5C - 36.5C ) (89 - [...] care recommendations. Assessment and Plan: Risk Assessment: Gates Suicide Risk: negative (1) DASA Risk for [...] + I - Behavioral 01-Jul-2020 21:31 Normal [facility] Daily Progress Note - Psychi [...] last night Objective: Objective Information: T PRBPSpO2 [id number]/8897% Date/Time07/01 10: 10: 10: 10: 10:07 Range(37C [...] 24 Hours Assessment and Plan: Risk Assessment: Gates Suicide Risk: low (1) DASA Risk for [...] + I - Behavioral 30-Jun-2020 22:25 Normal [facility] Order Reconciliationon 07-01 Order Reconciliation Page 1 Admission Reconciliation Document Reconciliation Type: Admission requested on behalf of Nikkie Wilkerson (Advanced Practice Nurse) done by Nikkie Wilkerson ([facility]) Admission - Reconciliation: 01-Jul-2020 10:04 by: Nikkie Wilkerson ([facility]) Additional Current Orders Acetaminophen Tablet (TYLENOL)DOSE = [...] (ZOLOFT)DOSE = 50 mg Oral Daily Normal [facility] TSHon 07-01-2020 TSH Qn 1.76 m[IU]/L Normal 0.44 - 3.98 [facility] Comment on above: Result Comment: TSH testing is performed using different testing methodology at [facility] than at other [facility]. Direct result comparisons should only be made within the same method. Performed By: #### T SH2 #### [address] [id number] ACUTE TOXICOLOGY PANEL, BLOO Don 06-30-2020 Acetaminophen [Mass/Vol] ug/mL Normal 10.0 - 30.0 [facility] Comment on above: Performed By: #### D RUBL #### [facility] [address] [place] [address] Ethanol [Mass/Vol] mg/dL Normal [facility] Comment on above: Result Comment: FOR MEDICAL USE ONLY. . REF VALUES <10 Performed By: #### D RUBL #### [facility] [address] [place] [address] SALICYLATE <3 Normal 4 - 20 [facility] Comment on above: Performed By: #### D RUBL #### [facility] [address] [place] [address] Admission Risk Screen - Adul ton 06-30-2020 [...] instruction; written material Cultural Considerationsnone Developmental Considerationsnone Taoism Considerationsnone Learning Assessment (Other Learner): Other learner [...] Spiritual Screen: Are there any cultural, spiritual, buddhism practices/values/needs that are important for us to knowno Vaccinations: Vaccination - Influenza Vaccination Screen: Is it flu season (between and June 14)No Vaccination - Pneumonia Vaccination Screen: Patient has received a previous pneumonia vaccine:no/unknown... Immunocompetent persons with underlying chronic conditions or reside in salvage determiner care facilitiesnone of these conditions Persons with [...] Jordan: Nutrition (quality of food intake)(4) excellent Jodran: Friction and Shear(3) no apparent problem Jordan: [...] the punches Safety Wanding: [place] Wanding Resultsnegative Gates Suicide: STEP 1 Risk Screen Not Applicable/Able [...] Was this within the past 3 monthsno Gates S (more content not included)... Normal [facility] CBC AND DIFFERENTIALon 06-30 % AUTOMATED IMMATURE GRAN 0.3 % Normal 0.0 - 0.9 [facility] Comment on above: Result Comment: Jossie ture Granulocyte Count (IG) includes promyelocytes, myelocytes and metamyelocytes but does not include bands. Percent differential counts (%) should be interpreted in the context of the absolute cell counts (cells/L). Performed By: #### C BCLIDIA #### [address] [address] Basophils (Bld) [#/Vol] 0.04 10*3/uL Normal 0.00 - 0.10 [facility] Comment on above: Performed By: #### C BCDF #### [address] [address] Basophils/100 WBC (Bld) 0.5 % Normal 0.0 - 2.0 [facility] Comment on above: Performed By: #### C BCDF #### [address] [address] Eosinophils (Bld) [#/Vol] 0.36 10*3/uL Normal 0.00 - 0.70 [facility] Comment on above: Performed By: #### C BCDF #### [address] [address] Eosinophils/100 WBC (Bld) 4.5 % Normal 0.0 - 6.0 [facility] Comment on above: Performed By: #### C BCDF #### [address] [address] Erythrocyte distribution width (RBC) [Ratio] 12.7 % Normal 11.5 - 14.5 [facility] Comment on above: Performed By: #### C BCDF #### [address] [address] Hematocrit (Bld) [Volume fraction] 46.1 % Normal 41.0 - 52.0 [facility] Comment on above: Performed By: #### C BCDF #### [address] [address] Hemoglobin (Bld) [Mass/Vol] 15.4 g/dL Normal 13.5 - 17.5 [facility] Comment on above: Performed By: #### C BCDF #### [address] [address] Lymphocytes (Bld) [#/Vol] 3.52 10*3/uL Normal 1.20 - 4.80 [facility] Comment on above: Performed By: #### C BCDF #### [address] [address] Lymphocytes/100 WBC (Bld) 44.1 % Normal 13.0 - 44.0 [facility] Comment on above: Performed By: #### C BCDF #### [address] [address] MCHC (RBC) [Mass/Vol] 33.4 g/dL Normal 32.0 - 36.0 [facility] Comment on above: Performed By: #### C BCDF #### [address] [address] MCV (RBC) [Entitic vol] 84 fL Normal 80 - 100 [facility] Comment on above: Performed By: #### C BCDF #### [address] [address] Monocytes (Bld) [#/Vol] 0.43 10*3/uL Normal 0.10 - 1.00 [facility] Comment on above: Performed By: #### C BCDF #### [address] [address] Monocytes/100 WBC (Bld) 5.4 % Normal 2.0 - 10.0 [facility] Comment on above: Performed By: #### C BCDF #### [address] [address] Neutrophils (Bld) [#/Vol] 3.61 10*3/uL Normal 1.20 - 7.70 [facility] Comment on above: Performed By: #### C BCDF #### [address] [address] Neutrophils/100 WBC (Bld) 45.2 % Normal 40.0 - 80.0 [facility] Comment on above: Performed By: #### C BCDF #### [address] [address] NUCLEATED RBC 0.0 /100 WBC Normal 0.0 - 0.0 [facility] Comment on above: Performed By: #### C BCDF #### [address] [address] Platelets (Bld) [#/Vol] 246 10*3/uL Normal 150 - 450 [facility] Comment on above: Performed By: #### C BCDF #### [facility] [address] [place] [address] RBC 5.50 x10E12/L Normal 4.50 - 5.90 [facility] Comment on above: Performed By: #### C BCDF #### [facility] [address] [place] [address] WBC (Bld) [#/Vol] 8.0 10*3/uL Normal 4.4 - 11.3 [facility] Comment on above: Performed By: #### C BCDF #### [facility] [address] [place], [place] [address] [place] [address] COMPREHENSIVE PANELon 2020 Albumin [Mass/Vol] 4.6 g/dL Normal 3.4 - 5.0 [facility] Comment on above: Performed By: #### C MP #### [facility] [address] [place], [place] [address] [place] [address] ALP [Catalytic activity/Vol] 64 U/L Normal 33 - 120 [facility] Comment on above: Performed By: #### C MP #### [facility] [address] [place], [place] [address] [place] [address] ALT [Catalytic activity/Vol] 60 U/L High 10 - 52 [facility] Comment on above: Result Comment: Shiela ents treated with Sulfasalazine may generate falsely decreased results for ALT. Performed By: #### C MP #### [facility] [address] [place], [place] [address] [place] [address] Anion gap [Moles/Vol] 13 mmol/L Normal 10 - 20 [facility] Comment on above: Performed By: #### C MP #### [facility] [address] [place] [address] AST [Catalytic activity/Vol] 32 U/L Normal 9 - 39 [facility] Comment on above: Performed By: #### C MP #### [facility] [address] [place] [address] Bilirubin [Mass/Vol] 0.5 mg/dL Normal 0.0 - 1.2 [facility] Comment on above: Performed By: #### C MP #### [facility] [address] [place] [address] Calcium [Mass/Vol] 9.9 mg/dL Normal 8.6 - 10.3 [facility] Comment on above: Performed By: #### C MP #### [address] [address] Chloride [Moles/Vol] 105 mmol/L Normal 98 - 107 [facility] Comment on above: Performed By: #### C MP #### [address] [address] Creatinine [Mass/Vol] 0.93 mg/dL Normal 0.50 - 1.30 [facility] Comment on above: Performed By: #### C MP #### [address] [address] GFR- AM. >60 Normal >60 [facility] Comment on above: Result Comment: CALC ULATIONS OF ESTIMATED GFR ARE PERFORMED USING THE MDRD STUDY EQUATION FOR THE IDMS-TRACEABLE CREATININE METHODS. CLIN CHEM 2007;53:766-72 Performed By: #### C MP #### [address] [address] GFR-NON AM. >60 Normal >60 [facility] Comment on above: Performed By: #### C MP #### [address] [address] Glucose [Mass/Vol] 112 mg/dL High 74 - 99 [facility] Comment on above: Performed By: #### C MP #### [address] [address] HCO3 (Bld) [Moles/Vol] 26 mmol/L Normal 21 - 32 [facility] Comment on above: Performed By: #### C MP #### [address] [address] Potassium [Moles/Vol] 3.8 mmol/L Normal 3.5 - 5.3 [facility] Comment on above: Performed By: #### C MP #### [address] [address] Protein [Mass/Vol] 6.8 g/dL Normal 6.4 - 8.2 [facility] Comment on above: Performed By: #### C MP #### [place] [address] Sodium [Moles/Vol] 140 mmol/L Normal 136 - 145 [facility] Comment on above: Performed By: #### C MP #### [place] [id number] Urea nitrogen [Mass/Vol] 17 mg/dL Normal 6 - 23 [facility] Comment on above: Performed By: #### C MP #### [place] [address] CORONAVIRUS 2019, SCREEN ASY MPTOMATICon 06-30-2020 Lab Specimen Source Nasal, Nasopharyngeal Normal [facility] Comment on above: Performed By: #### C OVSC #### [place] [address] SARS-CoV-2 (COVID-19) RNA OMAR+probe Ql (Unsp spec) Not detected Normal Not Detected [facility] Comment on above: Result Comment: . This assay is designed to detect the RdRp gene of SARS-CoV-2 via nucleic acid amplification. A Not Detected result does not preclude COVID-19 infection since the adequacy of sample collection and/or low viral burden may result in presence of viral nucleic acids below the clinical sensitivity of this test method. Fact sheet for providers: www.fda.gov/media/355517/download Fact sheet for patients: www.fda.gov/media/644959/download This test has received FDA Emergency Use Authorization (EUA) and has been verified by [facility]. This test is only authorized for the duration of time that circumstances exist to justify the authorization of the emergency use of in vitro diagnostic tests for the detection of SARS-CoV-2 virus and/or diagnosis of COVID-19 infection under section 564(b)(1) of the Act, 21 U.S.C. 360bbb-3(b)(1), unless the authorization is terminated or revoked sooner. [facility] is certified under CLIA-88 as qualified to perform high complexity testing. Testing is performed in the [facility] laboratory located at [address] [place] [address]. Performed By: #### C OVSC #### [facility] [address] [place] [address] Covid 19 Resultson 1 SARS-CoV-2 (COVID-19) RNA [...] You may also be contacted by the [facility] to see if any of your close [...] or Naproxen (Aleve) can also be used. Ypro-kce-gediehs cough and cold medicines can be used according to the instructions on the package. Some jfkt-tjl-spqlvgi medicines also contain acetaminophen. Make sure you [...] water are not available, use alcohol-based hand hyperbaric technician. Avoid touching your eyes, nose, and mouth [...] 24 cheri (more content not included)... Normal [facility] DRUG SCREEN,URINEon 07-01-19 21 AMPHETAMINE SCREEN,U Negative Normal NEGATIVE [facility] Comment on above: Result Comment: CUTO FF LEVEL: 500 NG/ML Cross-reactivity has been reported with high concentrations of the following drugs: buproprion, chloroquine, chlorpromazine, ephedrine, mephentermine, fenfluramine, phentermine, phenylpropanolamine, pseudoephedrine, and propranolol. Performed By: #### D RUG3 ####[address] [place] [address] BARBITURATES SCREEN,U Negative Normal NEGATIVE [facility] Comment on above: Result Comment: CUTO FF LEVEL: 200 NG/ML Performed By: #### D RUG3 ####[address] [place] [address] BENZODIAZEPINES SCREEN,U Negative Normal NEGATIVE [facility] Comment on above: Result Comment: CUTO FF LEVEL: 200 NG/ML Performed By: #### D RUG3 ####[address] [place] [address] CANNABINOIDS SCREEN,U Negative Normal NEGATIVE [facility] Comment on above: Result Comment: CUTO FF LEVEL: 50 NG/ML Performed By: #### D RUG3 ####[address] [place] [address] COCAINE METABOLITE SCREEN,U Negative Normal NEGATIVE [facility] Comment on above: Result Comment: CUTO FF LEVEL: 150 NG/ML Performed By: #### D RUG3 ####[address] [place] [address] DRUG SCREEN COMMENT SEE BELOW Normal [facility] Comment on above: Result Comment: Drug screen results are presumptive and should not be used to assess compliance with prescribed medication. Contact the performing [facility] laboratory to add-on definitive confirmatory testing [...] medical directors. Performed By: #### D RUG3 ####[place] [address] FENTANYL SCREEN,URINE Negative Normal NEGATIVE [facility] Comment on above: Result Comment: CUTO FF LEVEL: 1 NG/ML The performance characteristics of this test have been determined by the individual laboratory site where testing is performed. This test has not been cleared or approved by the FDA; however, the FDA has determined that such clearance is not necessary. Performed By: #### D RUG3 ####[place] [id number] METHADONE SCREEN,U Negative Normal NEGATIVE [facility] Comment on above: Result Comment: CUTO FF LEVEL: 150 NG/ML The metabolite W-apiyk-okrwxtqjmwrtih (LAAM) is not detected by this method in concentrations that would be found in the urine of patients on LAAM therapy. Performed By: #### D RUG3 ####[place] [id number] OPIATES SCREEN,U Negative Normal NEGATIVE [facility] Comment on above: Result Comment: CUTO FF LEVEL: 300 NG/ML The opiate screen does not detect fentanyl, meperidine, or tramadol. Oxycodone is not consistently detected (refer to Oxycodone Screen, Urine result). Performed By: #### D RUG3 ####[place] [id number] OXYCODONE SCREEN,U Negative Normal NEGATIVE [facility] Comment on above: Result Comment: CUTO FF LEVEL: 100 NG/ML This test will accurately detect both oxycodone and oxymorphone. Performed By: #### D RUG3 ####[address] [place] [address] PCP SCREEN,U Negative Normal NEGATIVE [facility] Comment on above: Result Comment: CUTO FF LEVEL: 25 NG/ML Cross-reactivity has been reported with dextromethorphan. Performed By: #### D RUG3 ####[facility] [place] [address] Discharge Planning [id number] 06-30-2020 Discharge Planning Note2 Discharge Planning: Anticipated Discharge [id number] Discharge Planning 06/30/20 Pt plans to return home where he lives with his fiance and follow up with [facility]. He was to start with a new counselor July 19 or , as his prior one left. He accepted information on grief and grief support resources, as well as a journal for expression of feelings. KYLIE Ortiz Assessment: Discharge Planning Assessment [id number] Lives Withsignificant other; Alejandra(1) Living Arrangementsapartment(1) [facility] Anticipated Discharge Facility/Level of Care NeedsHome Discharge Documentation: Discharge/Transfer Date/[id number] 15:45 Discharge Modeambulatory Discharged Accompanied Byparent Transportation Methodprivate car Valuables/Medications/Bel ongings Returnedyes Final DispositionHome Electronic Signatures: Yarelis Seth (ADRIAN) (Signed 30-Jun-2020 12:58) Authored: Discharge Planning, Assessment Ronnell Srinivasan (RN) (Signed 03-Jul-2020 16:31) Authored: Discharge Planning, Discharge Documentation Last Updated: 03-Jul-2020 16:31 by Ronnell Srinivasan (RN) References: 1. 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8 pound(s) Weight Methodstated Scale Typestanding Height in cm195.5 centimeter(s) Height Methodstated BMI (kg/m2)35.583 square meter [facility] Based Care: How would you like to [...] Withsignificant other Living Arrangementsapartment Services [facility] Significant IndicatorsComplete Information Review: Allergies, Home Meds and Significant Events have been Reviewed and Verified with Patient/Familyyes ALLERGY, INTOLERANCE, ADVERSE EVENT: Allergies: No Known Allergies: Active Electronic Signatures: Marjan Hoffmann (MING DAS) (Signed 30-Jun-2020 14:39) Authored: Initial Info, General Health, [facility] Based Care, Substance, Health Mgmt, Relationship/Environ, Additional Information Last Updated: 30-Jun-2020 14:39 by Marjan Hoffmann (MING DAS) References: 1. Data Referenced From Psychiatric Assessment - Social Work-Inpatient 30-Jun-2020 11:14 2. Data Referenced From Risk Screen - Adult Emergency 30-Jun-2020 07:55 Normal [facility] Provider Note - ED v2on 04- Provider Note - ED v2 Provider Note [...] accepted by Dr. Queen for admission to [facility]. Patient transferred in stable condition. CLINICAL IMPRESSION [...] From Triage - ED 30-Jun-2020 01:11 Normal [facility] Risk Screen - Adult Emergenc yon 06-30-2020 Risk Screen - Adult Emergency Preferred Language: Preferred Language: Preferred Language for Discussing Health Care (patient/designee)Tajik Advanced Directives: Advance Directive/DNRno Advance Directive Information [...] Communicatenone Learning Preferencesaudio Cultural Considerationsnone Developmental Considerationsnone Taoism Considerationsnone Learning Assessment (Other Learner): Learning Assessment (Other Learner): Other learner availableno Pressure Injury/TB/Substance: Pressure Injury: Pressure Injury Present on Admissionno Do you have a coughno Substance Use Current or Former Historynever: Cigarette/Tobacco, e-Cigarette/Vaping, Alcohol, Street Drugs Admission Risk Screen: Significant IndicatorsComplete CAGE: CAGE: Is this an injured patient at a Trauma Center ([facility]/[place]/ [place]): no Electronic Signatures: Eugenia Medeiros (RN) (Signed 30-Jun-2020 07:55) Authored: Preferred Language, Advanced Directives, Family Violence Adult, Learning Assessment (Patient), Learning Assessment (Other Learner), Pressure Injury/TB/Substance, Pressure Injury, CAGE Last Updated: 30-Jun-2020 07:55 by Eugenia Medeiros (MING) Normal [facility] Triage - EDon 06-30-2020 Triage - ED [...] Pain, Chart Review, Past Medical History Steve Howell) (Signed 30-Jun-2020 04:21) Authored: Quick Triage, Chart Review Last Updated: 30-Jun-2020 05:05 by Sandy Aguilar (RN) Normal [facility] URINALYSISon 06-30-2020 Appearance (U) CLEAR Normal CLEAR [facility] Comment on above: Performed By: #### U A #### [facility] [address] [place] [address] Bilirubin Ql (U) Negative Normal NEGATIVE [facility] Comment on above: Performed By: #### U A #### [facility] [address] [place] [address] Color (U) YELLOW Normal STRAW,YELLOW [facility] Comment on above: Performed By: #### U A #### [facility] [address] [facility] [place] [address] Glucose Ql (U) Negative Normal NEGATIVE [facility] Comment on above: Performed By: #### U A #### [facility] [address] [facility] [place] [address] Hemoglobin Ql (U) Negative Normal NEGATIVE [facility] Comment on above: Performed By: #### U A #### [facility] [address] [place] [address] Ketones Ql (U) Negative Normal NEGATIVE [facility] Comment on above: Performed By: #### U A #### [facility] [address] [place] [address], [place] [address] Leukocyte esterase Test strip Ql (U) Negative Normal NEGATIVE [facility] Comment on above: Performed By: #### U A #### [facility] [address] [place] [address] Nitrite Ql (U) Negative Normal NEGATIVE [facility] Comment on above: Performed By: #### U A #### [facility] [address] [place] [address] pH (U) 5.0 [pH] Normal 5.0 - 8.0 [facility] Comment on above: Performed By: #### U A #### [facility] [address] [place] [address] Protein Ql (U) Negative Normal NEGATIVE [facility] Comment on above: Performed By: #### U A #### [facility] [address] [place] [address] Specific gravity (U) [Rel density] 1.025 Normal 1.005 - 1.035 [facility] Comment on above: Performed By: #### U A #### [facility] [address] [place] [address] Urobilinogen (U) [Mass/Vol] 2.0 mg/dL High 0.0 - 1.9 [facility] Comment on above: Result Comment: SOME PIGMENTS AND MEDICATIONS MAY CAUSE A FALSE POSITIVE UROBILINOGEN Performed By: #### U A #### [facility] [address] [place] [address] Social History Date Type Detail Facility Start: 1995 Sex Assigned At Not on file [facility] Tobacco smoking stat [facility] Tobacco smoking consumption unknown [facility] Discharge summary note 07-03-2020 Note Date & [...] (2) Additional Resources for Patient and Family: [facility] Tobacco Use: Screening: Was the patient screened [...] of Any Studies Pending at Discharge: Phone: Melly Kelly (2) Advance Directives: Advance Directive (Medical)no(2) [...] Up Appointments: Follow-Up Appointment 01: Physician/Dept/Service: [facility] Reason for Referral: Follow up appt Scheduled Date/Time: 20-Jul-2020 16:00 Location: Telehealth appt Follow-Up Appointment 02: Physician/Dept/Service: Dr. Angela - PCP Reason for Referral: Blood pressure follow up / GERD follow up Scheduled Date/Time: 05-Jul-2020 10:00 Location: [address] [place] [address] [address], [place] [id number] Discharge Medications: Home Medication OXcarbazepine 150 mg [...] therapy safety plan (more content not included)... [facility] Clinical Note 07-01-2020 Note Date & Type Note Facility 07-01-2020 Note History Present Illn ess: Admission Reason: Suicidal thoughts HPI: PER EPAT: Pt, who is a 25 year old male, presents to the [place] ED with a chief complaint of suicidal [...] [facility] but when his [facility] left [...] [drink] Drug Usedenies Occupation[employer] [place] [employer] Social History Pt currently resides with his fiancee. They have been together for 2 years [...] checked: no Objective: Objective Information: T PRBPSpO2 [id number]/8897% Date/Time07/01 10: 10: 10: 10: 10:07 Range(37C [...] certify this pa (more content not included)... [facility] Summary Purpose Family History No Family History Records FoundNo Family History Records Found Advance Directives No Advanced Directives Records FoundNo Advanced Directives Records Found Additional Source Comments (unrecognized sect ion and content) No Status Records FoundNo Status Records Found INFORMATION SOURCE (unrecogn ized section and content) DATE CREATED AUTHOR 07/06/2020 [facility] DATE CREATED AUTHOR AUTHOR'S CARMELINA PATRICK 07/18/2020 [facility] FOR RECORDS PERTAINING TO PATIENTS WHO ARE [...] BE BASED ON THE PRIMARY CLINICAL RECORDS. [facility]. provides no warranty or guarantee of the accuracy or completeness of information in this document.
[2023-08-26 04:48] LABS: Basophils Percent Auto 0.3 % (0.2-2.0); Eosinophils Absolute Auto 0.1 10^3/uL (0.0-0.7); Eosinophils Percent Auto 0.4 % (0.9-7.0); Hematocrit 42.1 % (42.0-54.0); Hemoglobin 14.4 g/dL (14.0-18.0); Immature Granulocytes Abs Auto 0.06 10^3/uL (0.00-0.03); Immature Granulocytes Pct Auto 0.5 % (0.0-0.5); Lymphocytes Absolute Auto 1.8 10^3/uL (1.2-3.8); Lymphocytes Percent Auto 14.6 % (20.5-60.0); Mean Corpuscular HGB Conc 34.2 g/dL (29.9-35.2); Mean Corpuscular Hemoglobin 28.2 pg (25.9-34.0); Mean Corpuscular Volume 82.4 fL (80.0-94.0); Mean Platelet Volume 10.1 fL (9.5-13.5); Monocytes Absolute Auto 0.6 10^3/uL (0.3-0.8); Monocytes Percent Auto 4.9 % (1.7-12.0); Neutrophils Absolute Auto 9.5 10^3/uL (1.4-6.5); Neutrophils Percent Auto 79.3 % (43.0-75.0); Platelet Count 233 10^3/uL (150-450); Red Blood Count 5.11 10^6/uL (4.70-6.10); Red Cell Distribution Width 12.7 % (11.0-15.0)
[2023-08-26 05:11] LABS: Alanine Aminotransferase 77 U/L (16-63); Albumin Globulin Ratio 1.3; Albumin Level 3.9 g/dL (3.4-5.0); Alkaline Phosphatase 89 U/L (46-116); Anion Gap 10.4; Aspartate Amino Transferase 39 U/L (15-37); BUN Creatinine Ratio 11.8; Bilirubin Total 0.6 mg/dL (0.2-1.0); Calcium 9.1 mg/dL (8.5-10.1); Carbon Dioxide 28.2 mmol/L (21.0-32.0); Chloride 104 mmol/L (98-107); Estimated GFR (African America >60 (>=60); Estimated GFR (Non-African Ame >60 (>=60); Globulin 2.9 g/dL; Glucose 114 mg/dL (74-106); Potassium 3.6 mmol/L (3.5-5.1); Sodium 139 mmol/L (136-145); Total Protein 6.8 g/dL (6.4-8.2)
[2023-08-26] MEDS: HYDROMORPHONE HCL 1 MG/ML CARTRIDGE IVP (06:03)
--- NOTE | 2023-08-26 07:00 | US_ITS ---
The [place] [id number] Patient Name: MIGDALIA GARAY MRN: [facility]:[id number] date: 1995 Sex: M Assigned Patient Location: ICU Current Patient Location: ICU Accession/Order Number: [id number] Exam Date: 08/26/2023 07:18 Report Date: 08/26/2023 08:13 At the request of: DEVYN MENSAH Procedure: US right upper quadrant EXAM: US right upper quadrant HISTORY: Right sided abdominal pain COMPARISON: 08/25/2023 CT exam TECHNIQUE: Transabdominal grayscale and color FINDINGS: The liver appears normal in size and contour. Diffuse increase in hepatic echotexture suggesting hepatic steatosis. The gallbladder is small in size. The gallbladder wall is thickened measuring up to 8 mm. Positive sonographic Hinson sign. Small amount of pericholecystic fluid. The common bile duct measures 2.1 mm, normal The visualized pancreatic body is normal. The pancreas is poorly visualized The right kidney is normal measuring 9.0 x 5.3 x 5.6 cm. US/US right upper quadrant IMPRESSION: Gallbladder wall thickening consistent with acute cholecystitis Electronically authenticated by: SHEILA DOMINGO Date: 08/26/2023 08:13
[2023-08-26] MEDS: LISINOPRIL/HYDROCHLOROTHIAZIDE 20-12.5 MG TABLET 1 TAB PO (09:02)
[2023-08-26] MEDS: PIPERACILLIN SODIUM/TAZOBACTAM 3.375 GM in 0.9 % SODIUM CHLORIDE 50 ML IV ×2 (09:23→17:28)
[2023-08-26] MEDS: OXYCODONE HCL/ACETAMINOPHEN 5MG/325MG 1 TAB PO ×3 (11:17→23:41)
--- NOTE | 2023-08-26 11:26 | CM.NOTE ---
Rounds made with Dr. Marc. Dr. Marc reviewed findings and plan of care. Mr. Carbajal verbalizes understanding. Discussed insurance information with Daniel and he would like information on HCAP. Billers emailed and will be seeing Daniel.
--- NOTE | 2023-08-26 11:28 | P.HP_ITS ---
HPI H&P: HPI History of Present Illness Chief complaint: abdominal pain Narrative: 28 y/o male to ER with abdominal pain. Pain started earlier in day and right mid to upper quadrant. History of colitis and thought it felt similar. Pain to side but not to back. Severe nausea and emesis. To ER due to continued pain. Labs show slight elevation of WBC and AST/ALT. CT abdomen showed pericholecystic fluid but otherwise normal. BP elevated and reports prior treatment for HTN but no medication for over a year. Admitted for monitoring. US RUQ performed this am and consistent with acute cholecystitis. Continues to c/o severe pain not well controlled with medication. Afebrile. Opioid HPI Opioid Management Most Recent Opioid Data: Last Pain Scale 7 08/26/23 11:17 Last Pain Assessment 08/26/23 11:00 Last MAR Pain Assessment 08/26/23 11:17 Last ORT Total Score 1 08/26/23 01:49 Last ORT Risk Category Low Risk 08/26/23 01:49 Review of Systems ROS Constitutional Denies: fever, chills or fatigue Cardiovascular Denies: chest pain, palpitations or edema Respiratory Denies: shortness of breath, cough or wheezing Gastrointestinal Reports: abdominal pain, nausea and vomiting; Denies: diarrhea Genitourinary Denies: painful urination PFSH [facility] Medical History (Updated 08/26/23 @ 08:41 by Ryan Marc MD) Benign essential hypertension ?I10 - Essential (primary) hypertension (ICD-10) Colitis ?K52.9 - Noninfective gastroenteritis and colitis, unspecified (ICD-10) Nausea & vomiting ?R11.2 - Nausea with vomiting, unspecified (ICD-10) Constipation ?K59.00 - Constipation, unspecified (ICD-10) Uncontrolled hypertension ?I10 - Essential (primary) hypertension (ICD-10) Social History Smoking status: Current some day smoker Highest level of school completed/degree received: high school graduate Meds Home Medications and Allergies Home Medications ?Medication ?Instructions ?Recorded ?Confirmed ?Type No Known Home Medications 05/19/23 08/26/23 History Allergies Allergy/AdvReac Type Severity Reaction Status Date / Time No Known Drug Allergies Allergy Verified 08/25/23 20:46 Exam Constitutional Vital Signs, click to edit/add: Last Vital Signs Temp 98.2 F 08/26/23 08:13 Pulse 80 08/26/23 10:10 Resp 7 L 08/26/23 10:10 BP 179/108 H 08/26/23 09:58 Pulse Ox 100 08/26/23 06:23 O2 Del Method Room Air 08/26/23 06:23 Documenting provider has reviewed patient's vital signs: yes Common normals: oriented x3 and alert General appearance: not comfortable HENMT Common normals: normocephalic Eye Common normals: PERRL and EOMs intact bilaterally Respiratory Common normals: normal respiratory effort and clear to auscultation bilaterally Cardio Common normals: regular rate, regular rhythm, no gallops, no murmurs and no rub GI Auscultation: normoactive bowel sounds Palpation: tender Details: RUQ and Hinson's sign; no guarding Extremity Common normals: no pedal edema Results Labs Labs: Short CBC 08/25/23 08/26/23 Range/Units 21:30 04:18 WBC 11.2 H 12.0 H (4.0-11.0) 10^3/uL Hgb 14.4 14.4 (14.0-18.0) g/dL Hct 42.9 42.1 (42.0-54.0) % Plt Count 257 233 (150-450) 10^3/uL BMP 08/25/23 08/26/23 21:30 04:18 Sodium 142 139 Potassium 4.3 3.6 Chloride 105 104 Carbon Dioxide 29.6 28.2 BUN 13.0 10.0 Creatinine 0.88 0.85 Glucose 101 114 H Calcium 9.4 9.1 Liver Function 08/25/23 08/26/23 Range/Units 21:30 04:18 Total Bilirubin 0.7 0.6 (0.2-1.0) mg/dL Direct Bilirubin 0.1 (0.0-0.2) mg/dL AST 79 H 39 H (15-37) U/L ALT 89 H 77 H (16-63) U/L Alkaline Phosphatase 97 89 (46-116) U/L Albumin 4.2 3.9 (3.4-5.0) g/dL Urine 08/26/23 Range/Units 00:05 Urine Color Lt. yellow (YELLOW) Urine Clarity Clear (CLEAR) Urine pH 8.0 (5.0-9.0) Ur Specific [place] 1.015 (1.005-1.025) Urine Protein Negative (NEG/TRACE) mg/dL Urine Glucose (UA) Negative (NEGATIVE) mg/dL Imaging US - abdomen: Attestation: I have reviewed the pertinent imaging results. Assessment and Plan Assessment and Plan (1) Acute cholecystitis: (2) Hypertensive urgency: (3) Obesity (BMI 30-39.9): Plan Found acute cholecystitis and start zosyn. Continued pain and consult general surgery. BP elevated and add zestoretic and PRN hydralazine. Monitor labs and vitals. Further disposition per surgeon.
[2023-08-26] MEDS: LABETALOL HCL 20 MG/4 ML SYRINGE IVP (12:15)
[2023-08-26] MEDS: INDOCYANINE GREEN 25 MG VIAL INJ (12:51)
--- NOTE | 2023-08-26 13:24 | PM.GSCN ---
History of Present Illness Consult details Consult date: 08/26/23 Reason for consult: abdominal pain Requesting physician: Ryan Marc Narrative: Daniel Pereira is a 28-year-old male who presented to the ED this morning with acute right upper quadrant abdominal pain nonradiating. He had a CT scan of the abdomen pelvis which showed a distended gallbladder for which they recommended an ultrasound which was performed and shows acute cholecystitis. Patient denies any fevers or chills or jaundice. He states he was seen at the ED for abdominal pain on the left side about a month ago and was diagnosed with colitis. He denies any melena hematochezia or any family history of inflammatory bowel disease. His stepfather and his fianc?e are at the bedside. Stepfather shared with me that his mother of a heart attack and his father is currently incarcerated for murder. He lived in [place] before and does not have a PCP. 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 White blood count was slightly elevated at 12,000. He currently rates the pain as a 5 out of 10 continuous and sharp knifelike. He appears to be uncomfortable. I was consulted by the hospitalist. Surgical history is relevant for a tonsillectomy. He is slightly hypertensive and was on antihypertensive meds before but has not seen a PCP in a while. Denies a history of chest pain or shortness of breath. He vapes off-and-on. Denies illicit drug use. Review of Systems ROS Status of ROS 10 or more systems reviewed and unremarkable except as noted in history and below [facility] Medical History Benign essential hypertension ?I10 - Essential (primary) hypertension (ICD-10) Colitis ?K52.9 - Noninfective gastroenteritis and colitis, unspecified (ICD-10) Nausea & vomiting ?R11.2 - Nausea with vomiting, unspecified (ICD-10) Constipation ?K59.00 - Constipation, unspecified (ICD-10) Uncontrolled hypertension ?I10 - Essential (primary) hypertension (ICD-10) Social History Smoking status: Current some day smoker Highest level of school completed/degree received: high school graduate Meds Home Medications and Allergies Home Medications ?Medication ?Instructions ?Recorded ?Confirmed ?Type No Known Home Medications 05/19/23 08/26/23 History Allergies Allergy/AdvReac Type Severity Reaction Status Date / Time No Known Drug Allergies Allergy Verified 08/25/23 20:46 Exam Constitutional Vital Signs, click to edit/add: Last Vital Signs Temp 98.2 F 08/26/23 08:13 Pulse 68 08/26/23 12:23 Resp 14 08/26/23 12:23 BP 169/109 H 08/26/23 12:23 Pulse Ox 100 08/26/23 06:23 O2 Del Method Room Air 08/26/23 06:23 Documenting provider has reviewed patient's vital signs: yes Common normals: average body habitus, oriented x3, healthy appearing, alert and well nourished General appearance: cooperative and well developed Nutritional appearance: overweight Orientation/consciousness: Yes awake, Yes oriented to person, Yes oriented to place and Yes oriented to time Eye Common normals: PERRL, EOMs intact bilaterally and no scleral icterus GI Palpation: tender Details: RUQ Neuro Common normals: oriented x3, CN's II-XII intact bilaterally and moves all extremities Results Labs Labs: Abnormal lab results 08/25/23 08/26/23 08/26/23 Range/Units 21:30 00:05 04:18 WBC 11.2 H 12.0 H (4.0-11.0) 10^3/uL Neut % (Auto) 79.3 H (43.0-75.0) % Lymph % (Auto) 14.6 L (20.5-60.0) % Eos % (Auto) 0.4 L (0.9-7.0) % Neut # (Auto) 7.7 H 9.5 H (1.4-6.5) 10^3/uL Abs Immat Gran (auto) 0.06 H (0.00-0.03) 10^3/uL Glucose 114 H (74-106) mg/dL AST 79 H 39 H (15-37) U/L ALT 89 H 77 H (16-63) U/L Urine Ketones 15 A (NEGATIVE) mg/dL Urine Crystals Seen A (None Seen) #/HPF Diabetes panel 08/25/23 08/26/23 Range/Units 21:30 04:18 Sodium 142 139 (136-145) mmol/L Potassium 4.3 3.6 (3.5-5.1) mmol/L Chloride 105 104 (98-107) mmol/L Carbon Dioxide 29.6 28.2 (21.0-32.0) mmol/L BUN 13.0 10.0 (7.0-18.0) mg/dL Creatinine 0.88 0.85 (0.70-1.30) mg/dL Glucose 101 114 H (74-106) mg/dL Calcium 9.4 9.1 (8.5-10.1) mg/dL AST 79 H 39 H (15-37) U/L ALT 89 H 77 H (16-63) U/L Alkaline Phosphatase 97 89 (46-116) U/L Total Protein 7.3 6.8 (6.4-8.2) g/dL Albumin 4.2 3.9 (3.4-5.0) g/dL Calcium panel 08/25/23 08/26/23 Range/Units 21:30 04:18 Calcium 9.4 9.1 (8.5-10.1) mg/dL Albumin 4.2 3.9 (3.4-5.0) g/dL Pituitary panel 08/25/23 08/26/23 Range/Units 21:30 04:18 Sodium 142 139 (136-145) mmol/L Potassium 4.3 3.6 (3.5-5.1) mmol/L Chloride 105 104 (98-107) mmol/L Carbon Dioxide 29.6 28.2 (21.0-32.0) mmol/L BUN 13.0 10.0 (7.0-18.0) mg/dL Creatinine 0.88 0.85 (0.70-1.30) mg/dL Glucose 101 114 H (74-106) mg/dL Calcium 9.4 9.1 (8.5-10.1) mg/dL Adrenal panel 08/25/23 08/26/23 Range/Units 21:30 04:18 Sodium 142 139 (136-145) mmol/L Potassium 4.3 3.6 (3.5-5.1) mmol/L Chloride 105 104 (98-107) mmol/L Carbon Dioxide 29.6 28.2 (21.0-32.0) mmol/L BUN 13.0 10.0 (7.0-18.0) mg/dL Creatinine 0.88 0.85 (0.70-1.30) mg/dL Glucose 101 114 H (74-106) mg/dL Calcium 9.4 9.1 (8.5-10.1) mg/dL Total Bilirubin 0.7 0.6 (0.2-1.0) mg/dL AST 79 H 39 H (15-37) U/L ALT 89 H 77 H (16-63) U/L Alkaline Phosphatase 97 89 (46-116) U/L Total Protein 7.3 6.8 (6.4-8.2) g/dL Albumin 4.2 3.9 (3.4-5.0) g/dL All other labs normal. Imaging Abdomen CT scan report/results: report reviewed Abdominal ultrasound report/results: report reviewed Assessment and Plan Assessment and Plan (1) Acute cholecystitis: (2) Hypertensive urgency: (3) Obesity (BMI 30-39.9): Plan Robotic cholecystectomy with possible open cholecystectomy. Risks benefits and alternatives to surgery may include infection, bleeding, bile duct injury, blood clots to the legs or lungs, pneumonia, heart attack, stroke, and/or . He voiced understanding of all the above and wished to proceed.
[2023-08-26] MEDS: LACTATED RINGER'S SOLUTION 1,000 ML 50 ML IV ×2 (15:01→23:41)
--- NOTE | 2023-08-26 15:01 | P.GSPRC_ITS ---
Date of procedure: 08/26/23 Indications for Procedure: Acute cholecystitis with cholelithiasis Pre-op diagnosis: Acute cholecystitis with cholelithiasis Post-op diagnosis: same as pre-op Procedure: Robotic cholecystectomy with IC-Green Findings: Acute cholecystitis with cholelithiasis Anesthesia: SWETA Surgeon: Soniod Leo Procedure Summary: After again explaining the risks and benefits of the procedure in the preoperative care unit consent was obtained. ?The patient was taken back to the operative room and placed on the operative room table. General endotracheal anesthesia was induced and preoperative antibiotics were given. ?Appropriate time-out was performed. ?Right arm was?tucked at the side. ?Then the bed was positioned appropriately. ?The abdomen was prepped and draped in normal sterile fashion. A periumbilical incision was made. ?Dissection was carried down to the fascia. ?Fascia was elevated with kvng clamps and entered using Edmond technique.. A 12 mm port was placed into the abdomen and the abdomen was insufflated, there were no complications with insufflation. ?The scope and camera was brought in and then 3 more ports were placed. An 8?mm port was placed in the right lateral position. Two additional?8 mm Davinci ports were placed, 8 cm to the left and one to the right of the umbilicus. ?The patient was then placed in reverse Trendelenburg position and slightly turned to the left. The [employer] robot was docked. The 4th arm was used to grasp the dome of the gallbladder superiorly. ?The peritoneal attachments were taken down with meticulous dissection laterally and medially from the gallbladder. ?At this point the infundibular gallbladder was retracted laterally and a critical view was obtained. ?With the cystic duct inferiorly cystic artery medially and the liver posteriorly. ?Two clips were placed on the patient side and 1 on the specimen side of both the cystic duct and the cystic artery. ?These were then excised. ?The remainder of the gallbladder was taken off of the gallbladder fossa using electrocautery. The gallbladder was then removed through the umbilical port using Endo-Catch bag. ?The gallbladder fossa was visualized again to confirm no bleeding and no leak from the cystic duct. The robot was undocked from the patient. The abdomen was deinsufflated.? The umbilical incision fascia was closed with a [id number] 0 Vicryl. The skin was closed at all the incisions with 4 0 Monocryl. All incisions and underlying muscle was anesthetized with local anesthetic. Steri-Strips were then placed over the incisions. The patient was extubated and had no immediate postoperative complications. Patient was taken to the PACU in stable condition. Torch Brazer: HARSHAD Lainez Estimated blood loss (mL): 2 Specimens: Gallbladder and stones Complications: No Condition: stable Disposition: PACU
[2023-08-26] MEDS: BUPIVACAINE HCL 0.5% PF 50 MG/10 ML VIAL 20 ML INJ (15:17)
--- NOTE | 2023-08-26 16:15 | PC.NURSE ---
1600- Patient retuns from surgery. Opens eyes when name called. See assessment
--- NOTE | 2023-08-26 17:08 | PC.NURSE ---
Large bandaid x 4 to abdomen.
[2023-08-26] MEDS: CELECOXIB 200 MG CAPSULE PO (20:01)
[2023-08-27] VITALS (7 sets, daily range): BP systolic 130; BP diastolic 72; PULSE 58–85; TEMP 36.4; O2SAT 95
[2023-08-27] MEDS: PIPERACILLIN SODIUM/TAZOBACTAM 3.375 GM in 0.9 % SODIUM CHLORIDE 50 ML IV ×2 (02:03→09:00)
[2023-08-27 04:11] LABS: Basophils Percent Auto 0.2 % (0.2-2.0); Eosinophils Percent Auto 0.4 % (0.9-7.0); Hematocrit 40.1 % (42.0-54.0); Hemoglobin 13.7 g/dL (14.0-18.0); Immature Granulocytes Abs Auto 0.03 10^3/uL (0.00-0.03); Immature Granulocytes Pct Auto 0.3 % (0.0-0.5); Lymphocytes Percent Auto 18.6 % (20.5-60.0); Mean Corpuscular HGB Conc 34.2 g/dL (29.9-35.2); Mean Platelet Volume 9.8 fL (9.5-13.5); Monocytes Absolute Auto 1.1 10^3/uL (0.3-0.8); Neutrophils Absolute Auto 7.6 10^3/uL (1.4-6.5); Neutrophils Percent Auto 70.5 % (43.0-75.0); Platelet Count 246 10^3/uL (150-450); Red Blood Count 4.89 10^6/uL (4.70-6.10); Red Cell Distribution Width 12.9 % (11.0-15.0); White Blood Count 10.7 10^3/uL (4.0-11.0)
[2023-08-27 04:30] LABS: Alanine Aminotransferase 200 U/L (16-63); Albumin Globulin Ratio 1.1; Albumin Level 3.5 g/dL (3.4-5.0); Alkaline Phosphatase 91 U/L (46-116); Anion Gap 11.1; Aspartate Amino Transferase 179 U/L (15-37); BUN Creatinine Ratio 10.6; Bilirubin Total 1.7 mg/dL (0.2-1.0); Calcium 8.9 mg/dL (8.5-10.1); Carbon Dioxide 26.9 mmol/L (21.0-32.0); Chloride 103 mmol/L (98-107); Estimated GFR (African America >60 (>=60); Estimated GFR (Non-African Ame >60 (>=60); Globulin 3.1 g/dL; Glucose 124 mg/dL (74-106); Sodium 137 mmol/L (136-145); Total Protein 6.6 g/dL (6.4-8.2)
[2023-08-27] MEDS: OXYCODONE HCL/ACETAMINOPHEN 5MG/325MG 1 TAB PO (06:14)
[2023-08-27] MEDS: LISINOPRIL/HYDROCHLOROTHIAZIDE 20-12.5 MG TABLET 1 TAB PO (09:00)
--- NOTE | 2023-08-27 11:21 | P.DS_ITS ---
DS: Providers Provider Date of admission: 08/26/23 11:46 Primary care physician: Non-Staff Physician, Consults: 08/26/23 11:05 Consult to General Surgeon Routine Consulting Provider: Sonido Leo Reason for consultation: Acute cholecystitis Has provider been notified: No DS: Diagnosis Discharge Diagnosis (1) Acute cholecystitis: (2) Hypertensive urgency: (3) Obesity (BMI 30-39.9): DS: Summary Hospital Course Hospital Course: Reason for admission: See H&P for details. 28 y/o male to ER with abdominal pain. Pain started earlier in day and right mid to upper quadrant. History of colitis and thought it felt similar. Pain to side but not to back. Severe nausea and emesis. To ER due to continued pain. Labs show slight elevation of WBC and AST/ALT. CT abdomen showed pericholecystic fluid but otherwise normal. BP elevated and reports prior treatment for HTN but no medication for over a year. Admitted for monitoring. Hospital course: US RUQ performed this am and consistent with acute cholecystitis. Started on zosyn. Continued to c/o severe pain not well controlled with medication. Afebrile. General surgery consulted. BP elevated and started zestoretic and PRN hydralazine. Evaluated by surgery and taken to OR for lap choly. Did well postoperatively. Pain tolerable with medication and BP controlled. Normal appetite and no emesis or diarrhea. Ambulating well. Discharged home in stable condition. Will use percocet PRN and continue zestoretic daily. Follow up with surgeon in 1-2 weeks. Need to establish with new PCP in 2-4 weeks. Time Spent with Patient Time attestation: Total time spent providing and/or coordinating discharge services: Time spent: greater than 30 minutes Exam Constitutional Vital Signs, click to edit/add: Last Vital Signs Temp 97.5 F L 08/27/23 03:57 Pulse 65 08/27/23 10:00 Resp 18 08/27/23 07:16 BP 130/72 08/27/23 03:57 Pulse Ox 95 08/27/23 03:57 O2 Del Method Room Air 08/27/23 03:57 Documenting provider has reviewed patient's vital signs: yes Common normals: no apparent distress, oriented x3 and alert HENMT Common normals: normocephalic Eye Common normals: PERRL and EOMs intact bilaterally Respiratory Common normals: normal respiratory effort and clear to auscultation bilaterally Cardio Common normals: regular rate, regular rhythm, no gallops, no murmurs and no rub GI Auscultation: normoactive bowel sounds Palpation: tender (Appropriately tender); no guarding Extremity Common normals: no pedal edema DS: Data Data Completed and Pending Labs on day of discharge: Labs from last 24 hours 08/27/23 03:48 WBC 10.7 RBC 4.89 Hgb 13.7 L Hct 40.1 L MCV 82.0 MCH 28.0 MCHC 34.2 RDW 12.9 Plt Count 246 MPV 9.8 Neut % (Auto) 70.5 Lymph % (Auto) 18.6 L [place] % (Auto) 10.0 Eos % (Auto) 0.4 L Baso % (Auto) 0.2 Neut # (Auto) 7.6 H Lymph # (Auto) 2.0 [place] # (Auto) 1.1 H Eos # (Auto) 0.0 Baso # (Auto) 0.0 Abs Immat Gran (auto) 0.03 Imm/Tot Granulo (auto) 0.3 Sodium 137 Potassium 4.0 Chloride 103 Carbon Dioxide 26.9 Anion Gap 11.1 BUN 10.0 Creatinine 0.94 Est GFR ( Amer) >60 Est GFR (Non-Af Amer) >60 BUN/Creatinine Ratio 10.6 Glucose 124 H Calcium 8.9 Total Bilirubin 1.7 H AST 179 H ALT 200 H Alkaline Phosphatase 91 Total Protein 6.6 Albumin 3.5 Globulin 3.1 Albumin/Globulin Ratio 1.1 Discharge Plan Discharge Disposition: Home, Self-Care Condition: Good Discharge Medications: New lisinopril-hydrochlorothiazide 20-12.5 mg Tablet 1 tab PO QD Qty: 30 0RF oxycodone-acetaminophen 5-325 mg Tablet 1 tab PO Q6H PRN (Reason: pain) 5 Days Qty: 20 0RF No Action No Known Home Medications Activity: increase activity as tolerated Activity Detail: See Dr. Leo' specific instructions. Diet: advance to your usual diet Diet Detail: regular Print Language: Serbian Patient Instructions: Cholecystitis (GEN), Laparoscopic Cholecystectomy (DC) Activity Restrictions/Additional Instructions: NOTIFY * Your bandage becomes soaked with bright red blood. * Your dressing becomes damp, soiled or develops a bad odor and you have been instructed not to remove it. * If you have applied pressure for 5 minutes and bleeding has not been controlled. * Any excessive or progressive pain not helped by the pain medication ordered. * An inability to urinate within 12 hours of discharge from the hospital. * Any pain, burning or frequent urination. * An allergic reaction (rash, hives, itching, trouble breathing or swallowing). * If you have any questions, problems or concerns not listed. * If for some reason you are unable to take the prescribed medication. * An oral temperature of 101 degrees fahrenheit or higher. * Increased warmth around surgical area. * Redness or increased pain around surgical area. * Red streaks coming from surgical area. Post Care * Keep dressings and suture lines clean and dry. * Apply a new dressing as necessary. * Apply pressure for five minutes if bleeding occurs. * Apply an ice bag (20 minutes on/20 minutes off) for the first 24-48 hours. * No bathing or swimming until released by your surgeon. * May shower. * Review printed instruction sheet provided by your surgeon. Forms: Portal Instructions Follow Up Appointments: Dr. Leo: September 08 at 10:00AM. Office . Office Address: [address] [place], [place] [address] [address]. Discharge location: home
--- NOTE | 2023-08-27 11:53 | NUTR.NU ---
Pt was admitted 08/26/23 w/dx cholecystitis; s/p cholecystectomy. PO intakes of regular diet are good, IV fluids continue. Pt will benefit from low fat diet and adequate dietary PRO to aid wound healing. He is being discharged this date.
--- NOTE | 2023-09-01 14:58 | CM.DCFOLLOWU ---
1st attempt 09/01/23, no answer
--- NOTE | 2023-09-02 15:12 | CM.DCFOLLOWU ---
2nd attempt 09/02/23, no answer
--- NOTE | 2023-09-03 15:23 | CM.DCFOLLOWU ---
Person spoke with:patient How are you feeling? well How is your pain? recovering well, pain is better, off all pain meds Did you understand your discharge instructions? yes Do you have any questions about your discharge instructions? no Were you given any prescriptions at discharge? yes Were you able to get your prescriptions filled? yes Do you understand how to take your medications as ordered? yes Do you have any questions about your follow up appointment and do you plan to keep your follow up appointment? no questions, reviewed follow up Is there anything else that you would like to discuss? no Questions/Comments/Concerns/Other: no
== END 2023-08-27 11:25 | disposition home or self-care (01) | DRG 419 ==
LOC: ER 08-26 01:22 → ICU 08-26 01:41
PROVIDERS: Registered Nurse; Surgery; Admitting Provider Family Medicine; Emergency Provider Emergency Medicine; Visit Provider Family Medicine
PROC: 0FT44ZZ Resection of Gallbladder, Percutaneous Endoscopic Approach (ICD-10-PCS; principal; 2023-08-26 13:30)
DX: K80.00 Calculus of gallbladder with acute cholecystitis without obstruction (principal); I16.0 Hypertensive urgency; E66.9 Obesity, unspecified; Z68.35 Body mass index [BMI] 35.0-35.9, adult; F17.290 Nicotine dependence, other tobacco product, uncomplicated; I10 Essential (primary) hypertension
CPT/HCPCS: 36415; 74177; 76705; 80048; 80053; 80076; 81001; 82150; 83690; 85025; 88304; 93005; 96365; 96366; 96375; 96376; 99285; J0360; J0665; J1100; J1170; J1290; J2250; J2270; J2371; J2405; J2543; J2704; J3010; Q9967

== ENCOUNTER 2024-08-28 18:19 | Emergency (ER) | payer SELFPAY ==
--- OUTSIDE RECORDS SUMMARY | 2024-08-28 18:25 | XMS_ITS | CCD ---
Author Organization [facility] ion Partnership [facility] Care Team Providers Care Seam Press Operator Name Role Phone Unavailable Primary Care Provider DO Kwan Elizondo Attending Provider Unavailab DO Kwan Pruett Attending Provider Unavailab Kwan Pruett Attending Unavailable Kwan Chi Admitting Unavailable MAHNAZ TOLENTINO Attending Unavailable Unavailable Primary Care Provider Unavaililan harrington Allergies Allergy Classification Reported Allergen(s) Allergy Type Date of Onset Reaction(s) Facility (3 sources) Latex; Translations: [LATEX] Propensity to adverse reactions to drug (disorder) Hives [facility] Medications Current Medications Medication Drug Class(es) Dates Sig (Normalized) Sig (Original) hydroCHLOROthiazide 12.5 mg / lisinopril 20 mg oral tablet (1 source) Thiazide Diuretic, Angiotensin Converting Enzyme Inhibitor Start: 08-27-2023 take 1 tablet by mouth once in the morning lisinopril-hydr oCHLOROthiazide (PRINZIDE,ZESTO RETIC) 20-12.5 mg per tablet Take 1 tablet by mouth in the morning. 08/27/2023 Active Problems Problem Classification Problem Date Documented Da te Episodic/Chronic Anxiety disorders (1 source) Anxiety; Translations: [Anxiety disorder, unspecified] 08-25-2024 Chronic Essential hypertension (1 source) Hypertensive disorder; Translations: [Essential (primary) hypertension] 08-25-2024 Chronic Mood disorders (1 source) Bipolar disorder; Translations: [Bipolar disorder, unspecified] 08-25-2024 Chronic Residual codes; unclassified (1 source) Acquired absence of other specified parts of digestive tract; Translations: [Acquired absence of other specified parts of digestive tract] Onset: 09-08-2023 Episodic Unclassified (1 source) Post-op Onset: 09-08-2023 Results Test Name Value Interpretation Reference Range Facility No Panel InformationOrdered By: Dilma Lyons on 08-25-2024 Quick Strep (POC) [facility] No Panel Informationon 08-26 [facility] Vinay 08-26-2023 L Specimen: [id number] Received: 08/27/23 Status: NILTON Polo Num: [id number] Spec Type: Surgical Subm Dr: Sonido Leo DO Tissues: A Gallbladder (GB/CONTENTS) Procedures: HE/2, Gross/Micro L3 Age/ Patient Sex Location Account Attending Physician Migdalia Carbajal 28/M [place] [id number] Kwan Chi DO SPEC NUM: [id number] RECD: 08/27/23 STATUS: NILTON REGenna NUM: [id number] GO: 08/26/[address]: Sonido Leo DO ENTERED: 08/27/[address]: Kelly,Lab SPEC TYPE: Surgical DEPT: MEI JOVEL ORDERED: HE/2, Gross/Micro L3 ORDERED: HE/2, Gross/Micro L3 Pathological Diagnosis Gallbladder, cholecystectomy: Acute cholecystitis and cholelithiasis. Clinical Information Acute cholecystitis with cholelithiasis Gross Description Received in formalin labeled with the patient's name, date of and gallbladder and contents is a 8.6 cm in length by 1.7 to 2.4 cm in diameter previously disrupted gallbladder covered by smooth and glistening patel-pink serosa with an adjacent roughened patel hepatic surface. The 0.2 cm in diameter cystic duct is inked blue. There is a 0.5 x 0.3 x 0.3 cm patel-pink lymph node present that comes to within 1.5 cm of the cystic duct. The lymph node is bisected revealing a pink-brown cut surface. Opening into the specimen demonstrates fibrous, roughened patel-brown mucosa expelling patel bile and containing numerous yellow mulberry stones ranging from 0.1 to 0.5 cm within the central lumen and obstructing the cystic duct. The gallbladder wall ranges from 0.1 to 0.5 cm. The specimen is representatively submitted in A1 (gallbladder) and A2 (lymph node). CPT Codes 49780 Specimen: [id number] Received: 08/27/23 Status: NILTON Polo Num: [id number] Spec Type: Surgical Subm Dr: Sonido Leo DO Tissues: A Gallbladder (GB/CONTENTS) Procedures: Dina LOZA/Calli L3 Patient: Migdalia Carbajal [id number] (Continued) Signed (signature on file) Atul Cerna MD 08/28/23 [address] [facility] Daily Progress Note-General Internal Medicineon 07-03-2020 Daily Progress Note-General Internal Medicine Consult Type: subsequent visit/care Service: General Internal Medicine Subjective Data: MIGDALIA CARBAJAL is a 25 year old Male [...] night. Objective Data: Objective Information: T PRBPSpO2 Value36.60397930/9199% Date/Time07/03 8: 15: 15: 15: 15:10 Range(36.4C - 36.4C ) (78 - 87 ) (16 - 18 ) (139 - 170 )/ (88 - 111 ) (99% - 100% ) Pain reported at 07/03 9:45: 0 = None T PRBPSpO2 Value36.76607797/9199% Date/Time07/03 8: 15: 15: 15: 15:10 Range(36.4C [...] mood and behavior Medication: Medications: Continuous Medications -------- No continuous medications are active Scheduled Medications -------- 1. amLODIPine (NORVASC): 5 mg Oral Daily 2. OXcarbazepine: 150 mg Oral 2 Times a Day 3. Pantoprazole: 40 mg Oral Daily 4. Sertraline: 50 mg Oral Daily PRN Medications -------- 1. Acetaminophen: 650 mg Oral Every 4 [...] document was written with the use of Nanigans, a voice recognition program. Please excuse any errors in documentation. Electronic Signatures: Kristi Sanchez (SIGNAL OPERATOR TECHNICAL-FIRE CREW WORKER) (Signed 03-Jul-2020 21:20) Authored: Service, Subjective Data, Objective Data, Assessment and Plan, Note Completion Last Updated: 03-Jul-2020 21:20 by Kristi Sanchez (KLARISSA) Normal [facility] Discharge [id number] Discharge Profile2 Discharge Orders: Anticipated Discharge Date: Anticipated Discharge [id number] Anticipated Discharge Time12:14 Problem List: Admitting Dx: Bipolar affective disorder, depressed, severe: Catalog Name: Bipolar disorder, current episode depressed, severe, without psychotic features DNAR: DNAR Status: none Psychiatric Continuing Care Plan: Discharge Destination: home Advance Directive/DNR: no Additional Resources for Patient and Family: [facility] Tobacco Use: Screening: Was the patient screened within the first 3 days of admission for tobacco use (cigarettes, smokeless tobacco, pipe, and cigar) within the previous 30 days: patient refused This patient is being discharged on multiple antipsychotic medications: no: Take all medications until outpatient provider advises otherwise. Questions After Hospitalization: Phone Number: [facility] [place] For Results of Any Studies Pending at Discharge: Phone: [facility] [place] Advance Directives: Advance Directive (Medical)no Advance Directive [...] Review of Medication Reconciliation and Orders Completedby SIGNAL OPERATOR TECHNICAL Reviewing ProviderKLARISSA Calles at 03-Jul-2020 12:14:33 Appointments: Follow-Up Appointment 01: Physician/Dept/[facility] for Effective Living Reason for ReferralFollow up appt Scheduled Date/[id number] 16:00 [facility]Te[facility] appt Phone [phone] CommentsPlease answer all private and unknown calls on the day of the appt. Follow-Up Appointment 02: [facility] Reason for ReferralBlood pressure follow up / GERD follow up Call to Schedule in2-3 days CommentsNursing Staff to schedule appoitment Electronic Signatures: Marce Zhou ([facility]) (Signed 03-Jul-2020 12:14) Authored: Discharge Orders, Psychiatric Continuing Care Plan, Provider FINAL REVIEW of Orders Kristi Sanchez ([facility]) (Signed 03-Jul-2020 11:44) Authored: Discharge Orders, Appointments Cooper Newton ([facility]) (Signed 03-Jul-2020 11:08) Authored: Discharge Orders, Appointments, Gold Form - Ammonium Sulfate Operator Summary Last Updated: 03-Jul-2020 12:14 by Marce Zhou ([facility]) [facility] Order Reconciliationon 07-03 Order Reconciliation Page 1 Discharge Reconciliation Document Reconciliation Type: Discharge requested on behalf of Kristi Sanchez (Advanced Practice Nurse) done by Kristi Sanchez ([facility]) Discharge - Partial Reconciliation: 03-Jul-2020 12:13 by: Marce Zhou ([facility]) Discharge - Reconciliation: 03-Jul-2020 13:29 by: Kristi Sanchez ([facility]) Current OrdersDateHOME MEDICATIONS AT DISCHARGE DateReconciliation Comment/ [...] be shared with your follow-up providers (doctor, claim inspector, physical therapist, etc.). Guidelines for a Healthy [...] providers ( (more content not included)... Normal [facility] Consult-General Internal Med sandhya 07-02-2020 Consult-General Internal Medicine Service: Service: General Internal Medicine Consult: Consult requested by (Attending Name): Ernesto Queen Reason: H & P History of Present Illness: Admission Reason: SI HPI: PER EPAT: Pt, who is a 25 year old male, presents to the [place] ED with a chief complaint of suicidal [...] a therapist for the past year at [employer] living but when his therapist left the [...] Known Allergies: Objective: Objective Information: T PRBPSpO2 Value36.36358563/8498% Date/Time07/02 9:114/18 12:24418 12:244/18 12:24418 12:24 Range(36.5C - 36.5C ) (68 - 97 ) (18 - 18 ) (163 - 180 )/ (84 - 107 ) (97% - 99% ) Physical Exam by System: Constitutional: Well developed, awake/alert/oriented x3, no distress, alert and cooperative Eyes: PERRL, EOMI, clear sclera ENMT: mucous membranes zac (more content not included)... Normal [facility] Daily Progress Note - Psychi gia 07-02-2020 Daily Progress Note - Psychiatry Subjective Data: MIGDALIA CARBAJAL is a 25 year old Male who is Hospital Day # 3. Additional Information: Pt SEEN D/W TEAM Report feeling much better today Seen reading book and his concentration is better Sleep and appetite good No negative thinking or suicidal thoughts No hopeless or worthless feeling Objective: Objective Information: T PRBPSpO2 Value36.55725237/44606% Date/Time07/02 9: 9: 9: 9:114 9:11 Range(36.5C - 36.5C ) (89 - [...] care recommendations. Assessment and Plan: Risk Assessment: Arden Suicide Risk: negative (1) DASA Risk for [...] + I - Behavioral 01-Jul-2020 21:31 Normal [facility] Daily Progress Note - Psychi atryon 07-01-2020 Daily Progress Note - Psychiatry Subjective Data: MIGDALIA CARBAJAL is a 25 year old Male who is Hospital Day # 2. Additional Information: Pt report feeling depressed anxious and hopeless Poor eye contact during the interview Pt has been having passive SI Admit to mood swings, anger irritability and impulsivity Slept better last night Objective: Objective Information: T PRBPSpO2 Value37.74183523/8897% Date/Time07/01 10: 10: 10: 10: 10:07 Range(37C [...] need for recommended treatments. Medications: Continuous Medications -------- No continuous medications are active Scheduled Medications -------- 1. OXcarbazepine: 150 mg Oral 2 Times a Day 2. Sertraline: 50 mg Oral Daily PRN Medications -------- 1. Acetaminophen: 650 mg Oral Every 4 [...] 24 Hours Assessment and Plan: Risk Assessment: Arden Suicide Risk: low (1) DASA Risk for [...] + I - Behavioral 30-Jun-2020 22:25 Normal [facility] Order Reconciliationon 07-01 Order Reconciliation Page 1 Admission Reconciliation Document Reconciliation Type: Admission requested on behalf of Mahnaz Wilkerson (Advanced Practice Nurse) done by Mahnaz Wilkerson (SIGNAL OPERATOR TECHNICAL-[facility]) Admission - Reconciliation: 01-Jul-2020 10:04 by: Mahnaz Wilkerson (SIGNAL OPERATOR TECHNICAL-FIRE CREW WORKER) Additional Current Orders Acetaminophen Tablet (TYLENOL)DOSE = [...] (ZOLOFT)DOSE = 50 mg Oral Daily Normal [facility] TSHon 07-01-2020 TSH Qn 1.76 m[IU]/L Normal 0.44 - 3.98 [facility] Comment on above: Result Comment: TSH testing is performed using different testing methodology at [facility] than at other [facility]. Direct result comparisons should only be made within the same method. Performed By: #### T SH2 #### [address] [id number] ACUTE TOXICOLOGY PANEL, RENEO [place] 06-30-2020 Acetaminophen [Mass/Vol] ug/mL Normal 10.0 - 30.0 [facility] Comment on above: Performed By: #### D RUBL #### [facility] [address] [place] [address] Ethanol [Mass/Vol] mg/dL Normal [facility] Comment on above: Result Comment: FOR MEDICAL USE ONLY. . REF VALUES <10 Performed By: #### D RUBL #### [facility] [address] [place] [address] SALICYLATE <3 Normal 4 - 20 [facility] Comment on above: Performed By: #### D RUBL #### [address] [address] Admission Risk Screen - Adul ton 06-30-2020 [...] Diagnosisyes (15) Intravenous Therapy/ Heparin/Saline Lockno (0) Gait/Transferringnormal/ bedrest/wheelchair (0) Ambulatory Aidsnone/bedrest/nurse assist (0) Mental Statusoriented [...] instruction; written material Cultural Considerationsnone Developmental Considerationsnone Voodoo Considerationsnone Learning Assessment (Other Learner): Other learner [...] Spiritual Screen: Are there any cultural, spiritual, congregational practices/values/needs that are important for us to knowno Vaccinations: Vaccination - Influenza Vaccination Screen: Is it flu season (between and June 14)No Vaccination - Pneumonia Vaccination Screen: Patient has received a previous pneumonia vaccine:no/unknown... Immunocompetent persons with underlying chronic conditions or reside in skilled nursing care facilitiesnone of these conditions Persons with [...] the punches Safety Wanding: [place] Wanding Resultsnegative Arden Suicide: STEP 1 Risk Screen Not Applicable/Able [...] Was this within the past 3 monthsno Arden S (more content not included)... Normal [facility] CBC AND DIFFERENTIALon 06-30 % AUTOMATED IMMATURE GRAN 0.3 % Normal 0.0 - 0.9 [facility] Comment on above: Result Comment: Jossie ture Granulocyte Count (IG) includes promyelocytes, myelocytes and metamyelocytes but does not include bands. Percent differential counts (%) should be interpreted in the context of the absolute cell counts (cells/L). Performed By: #### C BCDF #### [address] [address] Basophils (Bld) [#/Vol] 0.04 10*3/uL Normal 0.00 - 0.10 [facility] Comment on above: Performed By: #### C BCDF #### [address] [address] Basophils/100 WBC (Bld) 0.5 % Normal 0.0 - 2.0 [facility] Comment on above: Performed By: #### C BCDF #### [address] [address] Eosinophils (Bld) [#/Vol] 0.36 10*3/uL Normal 0.00 - 0.70 [facility] Comment on above: Performed By: #### C BCDF #### [address] [address] Eosinophils/100 WBC (Bld) 4.5 % Normal 0.0 - 6.0 [facility] Comment on above: Performed By: #### C BCDF #### [address] [address] Erythrocyte distribution width (RBC) [Ratio] 12.7 % Normal 11.5 - 14.5 [facility] Comment on above: Performed By: #### C BCDF #### [address] [address] Hematocrit (Bld) [Volume fraction] 46.1 % Normal 41.0 - 52.0 [facility] Comment on above: Performed By: #### C BCDF #### [address] [address] Hemoglobin (Bld) [Mass/Vol] 15.4 g/dL Normal 13.5 - 17.5 [facility] Comment on above: Performed By: #### C BCDF #### [address] [address] Lymphocytes (Bld) [#/Vol] 3.52 10*3/uL Normal 1.20 - 4.80 [facility] Comment on above: Performed By: #### C BCDF #### [address] [place] [address] Lymphocytes/100 WBC (Bld) 44.1 % Normal 13.0 - 44.0 [facility] Comment on above: Performed By: #### C BCDF #### [address] [address] MCHC (RBC) [Mass/Vol] 33.4 g/dL Normal 32.0 - 36.0 [facility] Comment on above: Performed By: #### C BCDF #### [address] [place] [address] MCV (RBC) [Entitic vol] 84 fL Normal 80 - 100 [facility] Comment on above: Performed By: #### C BCDF #### [address] [place] [address] Monocytes (Bld) [#/Vol] 0.43 10*3/uL Normal 0.10 - 1.00 [facility] Comment on above: Performed By: #### C BCDF #### [address] [place] [address] Monocytes/100 WBC (Bld) 5.4 % Normal 2.0 - 10.0 [facility] Comment on above: Performed By: #### C BCDF #### [address] [place] [address] Neutrophils (Bld) [#/Vol] 3.61 10*3/uL Normal 1.20 - 7.70 [facility] Comment on above: Performed By: #### C BCDF #### [address] [place] [address] Neutrophils/100 WBC (Bld) 45.2 % Normal 40.0 - 80.0 [facility] Comment on above: Performed By: #### C BCDF #### [facility] [address] [place] [address] NUCLEATED RBC 0.0 /100 WBC Normal 0.0 - 0.0 [facility] Comment on above: Performed By: #### C BCDF #### [address] [place] [address] Platelets (Bld) [#/Vol] 246 10*3/uL Normal 150 - 450 [facility] Comment on above: Performed By: #### C BCDF #### [address] [address] RBC 5.50 x10E12/L Normal 4.50 - 5.90 [facility] Comment on above: Performed By: #### C BCDF #### [address] [address] WBC (Bld) [#/Vol] 8.0 10*3/uL Normal 4.4 - 11.3 [facility] Comment on above: Performed By: #### C BCDF #### [address] [address] COMPREHENSIVE PANELon 2020 Albumin [Mass/Vol] 4.6 g/dL Normal 3.4 - 5.0 [facility] Comment on above: Performed By: #### C MP #### [address] [address] ALP [Catalytic activity/Vol] 64 U/L Normal 33 - 120 [facility] Comment on above: Performed By: #### C MP #### [address] [address] ALT [Catalytic activity/Vol] 60 U/L High 10 - 52 [facility] Comment on above: Result Comment: Shiela ents treated with Sulfasalazine may generate falsely decreased results for ALT. Performed By: #### C MP #### [facility] [address] [place] [address] Anion gap [Moles/Vol] 13 mmol/L Normal 10 - 20 [facility] Comment on above: Performed By: #### C MP #### [address] [address] AST [Catalytic activity/Vol] 32 U/L Normal 9 - 39 [facility] Comment on above: Performed By: #### C MP #### [address] [address] Bilirubin [Mass/Vol] 0.5 mg/dL Normal 0.0 - 1.2 [facility] Comment on above: Performed By: #### C MP #### [address] [address] Calcium [Mass/Vol] 9.9 mg/dL Normal 8.6 - 10.3 [facility] Comment on above: Performed By: #### C MP #### [address] [address] Chloride [Moles/Vol] 105 mmol/L Normal 98 - 107 [facility] Comment on above: Performed By: #### C MP #### [address] [address] Creatinine [Mass/Vol] 0.93 mg/dL Normal 0.50 - 1.30 [facility] Comment on above: Performed By: #### C MP #### [address] [address] GFR- AM. >60 Normal >60 [facility] Comment on above: Result Comment: CALC ULATIONS OF ESTIMATED GFR ARE PERFORMED USING THE MDRD STUDY EQUATION FOR THE IDMS-TRACEABLE CREATININE METHODS. CLIN CHEM 2007;53:766-72 Performed By: #### C MP #### [address] [address] GFR-NON AM. >60 Normal >60 [facility] Comment on above: Performed By: #### C MP #### [address] [address] Glucose [Mass/Vol] 112 mg/dL High 74 - 99 [facility] Comment on above: Performed By: #### C MP #### [address] [address] HCO3 (Bld) [Moles/Vol] 26 mmol/L Normal 21 - 32 [facility] Comment on above: Performed By: #### C MP #### [facility] [address] [place] [address] Potassium [Moles/Vol] 3.8 mmol/L Normal 3.5 - 5.3 [facility] Comment on above: Performed By: #### C MP #### [facility] [address] [place] [address] Protein [Mass/Vol] 6.8 g/dL Normal 6.4 - 8.2 [facility] Comment on above: Performed By: #### C MP #### [place] [address] [place] [address] Sodium [Moles/Vol] 140 mmol/L Normal 136 - 145 [facility] Comment on above: Performed By: #### C MP #### [address] [address] Urea nitrogen [Mass/Vol] 17 mg/dL Normal 6 - 23 [facility] Comment on above: Performed By: #### C MP #### [address] [address] CORONAVIRUS 2019, SCREEN ASY MPTOMATICon 06-30-2020 SARS-CoV-2 (COVID-19) RNA OMAR+probe Ql (Unsp spec) Not detected Normal Not Detected [facility] Comment on above: Result Comment: . This assay is designed to detect the RdRp gene of SARS-CoV-2 via nucleic acid amplification. A Not Detected result does not preclude COVID-19 infection since the adequacy of sample collection and/or low viral burden may result in presence of viral nucleic acids below the clinical sensitivity of this test method. Fact sheet for providers: www.fda.gov/media/316483/download Fact sheet for patients: www.fda.gov/media/100073/download This test has received FDA Emergency Use Authorization (EUA) and has been verified by [facility]. This test is only authorized for the duration of time that circumstances exist to justify the authorization of the emergency use of in vitro diagnostic tests for the detection of SARS-CoV-2 virus and/or diagnosis of COVID-19 infection under section 564(b)(1) of the Act, 21 U.S.C. 360bbb-3(b)(1), unless the authorization is terminated or revoked sooner. [facility] is certified under CLIA-88 as qualified to perform high complexity testing. Testing is performed in the [facility] laboratory located at [address] [place] [address]. Performed By: #### C OVSC #### [place] [address] Lab Specimen Source Nasal, Nasopharyngeal Normal [facility] Comment on above: Performed By: #### C OVSC #### [place] [address] Covid 19 Resultson 1 SARS-CoV-2 (COVID-19) RNA [...] You may also be contacted by the [facility] to see if any of [...] or Naproxen (Aleve) can also be used. Zyhu-irl-qvgrxzu cough and cold medicines can be used according to the instructions on the package. Some cwjo-abf-bmpbzmi medicines also contain acetaminophen. Make sure you [...] water are not available, use alcohol-based hand bottomer operator. Avoid touching your eyes, nose, and mouth [...] 24 cheri (more content not included)... Normal [facility] DRUG SCREEN,URINEon 07-01-19 21 AMPHETAMINE SCREEN,U Negative Normal NEGATIVE [facility] Comment on above: Result Comment: CUTO FF LEVEL: 500 NG/ML Cross-reactivity has been reported with high concentrations of the following drugs: buproprion, chloroquine, chlorpromazine, ephedrine, mephentermine, fenfluramine, phentermine, phenylpropanolamine, pseudoephedrine, and propranolol. Performed By: #### D RUG3 ####[place] [address] BARBITURATES SCREEN,U Negative Normal NEGATIVE [facility] Comment on above: Result Comment: CUTO FF LEVEL: 200 NG/ML Performed By: #### D RUG3 ####[place] [id number] BENZODIAZEPINES SCREEN,U Negative Normal NEGATIVE [facility] Comment on above: Result Comment: CUTO FF LEVEL: 200 NG/ML Performed By: #### D RUG3 ####[place] [address] CANNABINOIDS SCREEN,U Negative Normal NEGATIVE [facility] Comment on above: Result Comment: CUTO FF LEVEL: 50 NG/ML Performed By: #### D RUG3 ####[place] [id number] COCAINE METABOLITE SCREEN,U Negative Normal NEGATIVE [facility] Comment on above: Result Comment: CUTO FF LEVEL: 150 NG/ML Performed By: #### D RUG3 ####[facility] [place], [place] [id number] DRUG SCREEN COMMENT SEE BELOW Normal [facility] Comment on above: Result Comment: Drug screen results are presumptive and should not be used to assess compliance with prescribed medication. [facility] to add-on definitive confirmatory testing if [...] medical directors. Performed By: #### D RUG3 ####[facility] [place] [id number] FENTANYL SCREEN,URINE Negative Normal NEGATIVE [facility] Comment on above: Result Comment: CUTO FF LEVEL: 1 NG/ML The performance characteristics of this test have been determined by the individual laboratory site where testing is performed. This test has not been cleared or approved by the FDA; however, the FDA has determined that such clearance is not necessary. Performed By: #### D RUG3 ####[facility] [place], [place] [id number] METHADONE SCREEN,U Negative Normal NEGATIVE [facility] Comment on above: Result Comment: CUTO FF LEVEL: 150 NG/ML The metabolite W-ymxju-nuzcnaqeqsucjx (LAAM) is not detected by this method in concentrations that would be found in the urine of patients on LAAM therapy. Performed By: #### D RUG3 ####[facility] [id number] OPIATES SCREEN,U Negative Normal NEGATIVE [facility] Comment on above: Result Comment: CUTO FF LEVEL: 300 NG/ML The opiate screen does not detect fentanyl, meperidine, or tramadol. Oxycodone is not consistently detected (refer to Oxycodone Screen, Urine result). Performed By: #### D RUG3 ####[facility] [place] [id number] OXYCODONE SCREEN,U Negative Normal NEGATIVE [facility] Comment on above: Result Comment: CUTO FF LEVEL: 100 NG/ML This test will accurately detect both oxycodone and oxymorphone. Performed By: #### D RUG3 ####[facility] [place] [id number] PCP SCREEN,U Negative Normal NEGATIVE [facility] Comment on above: Result Comment: CUTO FF LEVEL: 25 NG/ML Cross-reactivity has been reported with dextromethorphan. Performed By: #### D RUG3 ####[facility] [place] [id number] Discharge Planning [id number] 0 06-30-2020 Discharge Planning Note2 Discharge Planning: Anticipated Discharge [id number] Discharge Planning 06/30/20 Pt plans to return home where he lives with his fiance and follow up with [facility]. He was to start with a new counselor July 19 or , as his prior one left. He accepted information on grief and grief support resources, as well as a journal for expression of feelings. KYLIE Ortiz Assessment: Discharge Planning Assessment [id number] Lives Withsignificant other; Alejandra(1) Living Arrangementsapartment(1) Anticipated Transition [place] Anticipated Discharge Facility/Level of Care NeedsHome Discharge Documentation: Discharge/Transfer Date/[id number] 15:45 Discharge Modeambulatory Discharged Accompanied Byparent Transportation Methodprivate car Valuables/Medications/Be longings Returnedyes Final DispositionHome Electronic Signatures: Yarelis Seth (ADRIAN) (Signed 30-Jun-2020 12:58) Authored: Discharge Planning, Assessment Ronnell Srinivasan (RN) (Signed 03-Jul-2020 16:31) Authored: Discharge Planning, Discharge Documentation Last Updated: 03-Jul-2020 16:31 by Ronnell Srinivasan (RN) References: 1. 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 Psychiatric: Cooperative HISTORY OF PRESENTING ILLNESS MIGDALIA is a 25 year old Male and [...] accepted by Dr. Queen [facility]. Patient transferred in stable condition. [...] From Triage - ED 30-Jun-2020 01:11 Normal [facility] Risk Screen - Adult Emergenc yon 06-30-2020 Risk Screen - Adult Emergency Preferred Language: Preferred Language: Preferred Language for Discussing Health Care (patient/designee)Prakash henriquez Advanced Directives: Advance Directive/DNRno Advance Directive Information [...] Communicatenone Learning Preferencesaudio Cultural Considerationsnone Developmental Considerationsnone Voodoo Considerationsnone Learning Assessment (Other Learner): Learning Assessment (Other Learner): Other learner availableno Pressure Injury/TB/Substance: Pressure Injury: Pressure Injury Present on Admissionno Do you have a coughno Substance Use Current or Former Historynever: Cigarette/Tobacco, e-Cigarette/Vaping, Alcohol, Street Drugs Admission Risk Screen: Significant IndicatorsComplete CAGE: CAGE: Is this an injured patient at a Trauma Center ([facility]/[place] /[place]): no Electronic Signatures: Eugenia Medeiros) (Signed 30-Jun-2020 07:55) Authored: Preferred Language, Advanced Directives, Family Violence Adult, Learning Assessment (Patient), Learning Assessment (Other Learner), Pressure Injury/TB/Substance, Pressure Injury, CAGE Last Updated: 30-Jun-2020 07:55 by Eugenia Medeiros) Normal [facility] Triage - EDon 04-16-2021 Triage - ED Chart Review: ARRIVAL INFORMATION Mode of Arrival: private vehicle CHIEF COMPLAINT MIGDALIA CARBAJAL is a Male patient with a [...] BMI (kg/m2): 37.584 Calculated BSA (m2) 2.74 Cerulean Coma Scale: Best Eye Response: (E4) spontaneous [...] 30-Jun-2020 05:05 by Sandy Aguilar (RN) Normal [facility] URINALYSISon 06-30-2020 Appearance (U) CLEAR Normal CLEAR [facility] Comment on above: Performed By: #### U A #### [facility] [address] [place] [address] Bilirubin Ql (U) Negative Normal NEGATIVE [facility] Comment on above: Performed By: #### U A #### [facility] [address] [place] [address] Color (U) YELLOW Normal STRAW,YELLOW [facility] Comment on above: Performed By: #### U A #### [facility] [address] [place] [address] Glucose Ql (U) Negative Normal NEGATIVE [facility] Comment on above: Performed By: #### U A #### [facility] [address] [place] [address] Hemoglobin Ql (U) Negative Normal NEGATIVE [facility] Comment on above: Performed By: #### U A #### [facility] [address] [place] [address] Ketones Ql (U) Negative Normal NEGATIVE [facility] Comment on above: Performed By: #### U A #### [facility] [address] [place] [address] Leukocyte esterase Test strip Ql (U) Negative Normal NEGATIVE [facility] Comment on above: Performed By: #### U A #### [facility] [address] [place] [address] Nitrite Ql (U) Negative Normal NEGATIVE [facility] Comment on above: Performed By: #### U A #### [facility] [address] [place] [address] pH (U) 5.0 [pH] Normal 5.0 - 8.0 [facility] Comment on above: Performed By: #### U A #### [address] [address] Protein Ql (U) Negative Normal NEGATIVE [facility] Comment on above: Performed By: #### U A #### [address] [address] Specific gravity (U) [Rel density] 1.025 Normal 1.005 - 1.035 [facility] Comment on above: Performed By: #### U A #### [address] [address] Urobilinogen (U) [Mass/Vol] 2.0 mg/dL High 0.0 - 1.9 [facility] Comment on above: Result Comment: SOME PIGMENTS AND MEDICATIONS MAY CAUSE A FALSE POSITIVE UROBILINOGEN Performed By: #### U A #### [address] [address] Vital Signs Date Time Vital Sign Value Performing Clinician Facility 08-25-2024 14:41-0400 Body height 194.31 cm [facility] 08-25-2024 14:41-0400 Body mass index (BMI) [Ratio] 36.3 kg/m2 [facility] 08-25-2024 14:41-0400 Body temperature 102.4 [degF] [facility] 08-25-2024 14:41-0400 Body weight 137.12 kg [facility] 08-25-2024 14:41-0400 Diastolic blood pressure 117 mm[Hg] [facility] 08-25-2024 14:41-0400 Heart rate 96 /min [facility] 08-25-2024 14:41-0400 Respiratory rate 18 /min [facility] 08-25-2024 14:41-0400 SaO2% (BldA) [Mass fraction] 99 % [facility] 08-25-2024 14:41-0400 Systolic blood pressure 167 mm[Hg] [facility] 09-08-2023 14:14-0400 Body height 194.3 cm Mahnaz Tolentino SIGNAL OPERATOR TECHNICAL-FIRE CREW WORKER Work Phone: [facility] 09-08-2023 14:14-0400 Body mass index (BMI) [Ratio] 33.47 kg/m2 Mahnaz Tolentino SIGNAL OPERATOR TECHNICAL-FIRE CREW WORKER Work Phone: [employer] 09-08-2023 14:14-0400 Body weight 126.37 kg Mahnaz Tolentino SIGNAL OPERATOR TECHNICAL-FIRE CREW WORKER Work Phone: [facility] 09-08-2023 14:14-0400 Diastolic blood pressure 85 mm[Hg] Mahnaz Tolentino SIGNAL OPERATOR TECHNICAL-FIRE CREW WORKER Work Phone: [facility] [employer] 09-08-2023 14:14-0400 Heart rate 82 /min Mahnaz Tolentino SIGNAL OPERATOR TECHNICAL-FIRE CREW WORKER [facility] Phone: [facility] 09-08-2023 14:14-0400 Systolic blood pressure 152 mm[Hg] Mahnaz Tolentino SIGNAL OPERATOR TECHNICAL-FIRE CREW WORKER Work Phone: [facility] [employer] Encounters Encounter Date Encounter Type Care Provider Facility Start: 08-25-2024 End: 08-25-2024 ambulatory [facility] Work Phone: Start: 08-25-2024 End: 08-25-2024 Patient encounter procedure [facility] Physician [facility] [place] Work Phone: Start: 09-08-2023 End: 09-08-2023 Postop follow up visit related to original px Mahnaz Tolentino SIGNAL OPERATOR TECHNICAL-FIRE CREW WORKER Work Phone: [facility] Comment on above: Status post laparosc opic cholecystectomy (Primary Dx) Start: 09-08-2023 End: 09-08-2023 ambulatory [facility] Edy TOLENTINO [facility] Start: 09-04-2023 End: 09-04-2023 Orders Only Not In System [facility] Start: 08-26-2023 End: 08-26-2023 ambulatory Kwan D [facility] Work Phone: Start: 08-26-2023 End: 08-26-2023 Departed Referred DO Kwan [facility] Start: 08-25-2023 End: 08-25-2023 ambulatory DO Kwan [facility] Work Phone: Start: 08-25-2023 End: 08-25-2023 Departed Referred DO Kwan [facility] Start: 05-02-2022 [facility] Procedures Date Procedure Procedure Detail Performing Clinician Start: 08-25-2024 Quick Strep (POC) Start: 08-27-2023 Level i surg pathology gross examination only Not In System Ref Prov Start: 08-27-2023 MULTIPLE LABS Not In System Ref Prov History of cholecystectomy Status post laparoscopic cholecystectomy Mahnaz Tolentino SIGNAL OPERATOR TECHNICAL-FIRE CREW WORKER Work Phone: Plan of Treatment Date Care Activity Detail Author Start: 2047 Shingles (RZV) Vaccine (1 of 2) Shingles (RZV) Vaccine (1 of 2) [facility] Start: 09-07-2024 Adult BMI Screening Adult BMI Screening [facility] Start: 11-16-2023 Influenza vaccination Influenza Vaccine [facility] Start: 09-08-2023 End: 09-08-2023 Patient encounter procedure 09/08/2023 2:15 PM EDT Office Visit [facility] General Surgery [address] [place] [address] Mahnaz Tolentino APRN-FIRE CREW WORKER [address] [place], [place] [id number] [facility] Start: 11-15-2022 COVID-19 Vaccine ( season) COVID-19 Vaccine ( season) [facility] Start: 12-15-2021 Influenza vaccination Influenza Vaccine (#1) [facility] Start: 01-03-2020 DTaP,Tdap and Td Vaccines (7 - Tdap) DTaP,Tdap and Td Vaccines (7 - Tdap) [facility] Start: 01-28-2016 DTaP,Tdap and Td Vaccines (1 - Tdap) DTaP,Tdap and Td Vaccines (1 - Tdap) [facility] Start: 2015 Adult BMI Follow Up Plan Adult BMI Follow Up Plan [facility] Start: 2015 Adult BMI Screening Adult BMI Screening [facility] Start: 2015 Hepatitis C screening Hepatitis C Antibody [facility] Start: 2015 Tetanus + diphtheria + acellular pertussis vaccine (product) Tdap Booster [facility] Start: 01-28-2012 HIV screening HIV Test [facility] Start: 2009 Depression Screening Depression Screening [facility] Start: 2009 Tobacco Screening Tobacco Screening [facility] Start: 01-28-2008 Vaccination for human papillomavirus Human Papilloma (HPV) Vaccine (1 - Male 2-dose series) [facility] Start: 1997 COVID-19 Vaccine (#1) COVID-19 Vaccine (#1) [facility] Immunizations Immunization Date Immunization Notes Care Provider Ellen perez 01-19-2009 influenza virus vaccine, unspecified formulation Mahnaz Tolentino APRN-FIRE CREW WORKER Work Phone: [facility] 01-14-2003 influenza virus vaccine, unspecified formulation [facility] 05-31-2002 diphtheria, tetanus toxoids and acellular pertussis vaccine [facility] 05-31-2002 poliovirus vaccine, inactivated [facility] 02-12-2001 pneumococcal conjuga te vaccine, 7 valent [facility] 01-30-2001 influenza virus vaccine, unspecified formulation [facility] 01-30-2001 measles, mumps and rubella virus vaccine [facility] 01-30-2000 influenza virus vaccine, unspecified formulation [facility] 02-22-1999 influenza virus vaccine, unspecified formulation [facility] 01-24-1999 influenza virus vaccine, unspecified formulation [facility] 08-11-1998 diphtheria, tetanus toxoids and acellular pertussis vaccine [facility] 05-04-1998 haemophilus influenz ae type b vaccine, HbOC conjugate [facility] 05-04-1998 measles, mumps and rubella virus vaccine [facility] 02-04-1998 varicella virus vaccine [facility] 1997 hepatitis B vaccine, pediatric or pediatric/adolescent dosage [facility] 1997 diphtheria, tetanus toxoids and acellular pertussis vaccine [facility] 1997 haemophilus influenz ae type b vaccine, HbOC conjugate [facility] 1997 poliovirus vaccine, inactivated [facility] 1997 diphtheria, tetanus toxoids and acellular pertussis vaccine [facility] 1997 haemophilus influenz ae type b vaccine, HbOC conjugate [facility] 1997 poliovirus vaccine, inactivated [facility] 1997 diphtheria, tetanus toxoids and acellular pertussis vaccine [facility] 1997 haemophilus influenz ae type b vaccine, HbOC conjugate [facility] 1997 poliovirus vaccine, inactivated [facility] 1997 hepatitis B vaccine, pediatric or pediatric/adolescent dosage [facility] 1997 hepatitis B vaccine, pediatric or pediatric/adolescent dosage [facility] Payers Date Payer Category Payer Self-pay 2019 Unknown [facility]FLEX [facility] ONLY MEDFLEX - HOSP ONLY [id number] 2019-Present [address] [place] [address] [facility] [place] [place] [id number] Social History Date Type Detail Facility [facility] Start: 1997 [facility] At [facility] Start: [facility] Sex Assigned At Male F [facility] Start: 09-08-2023 Gender identity Not on file [facility] Start: 09-08-2023 Tobacco [facility] daily [facility] Start: 09-08-2023 Tobacco use and exposure Smokeless tobacco non-user [facility] Start: 09-08-2023 Alcoholic beverage intake Current drinker of alcohol (finding) [facility] Start: 09-08-2023 History of Social function [facility] Within the past 12 months we worried whether our food would run out before we got money to buy more. Never True [facility] Start: 09-08-2023 Alcohol Comment socially Cor[facility] Start: 08-25-2024 Sex Male (finding) [facility] History of Present illness Narrative 09-08-2023 KLARISSA Parks - 09/08/2023 2:15 PM EDT Note Date & Type Note Facility 09-08-2023 History of Present illness Narrative Images from the original note were not included. Subjective Migdalia Carbajal is a 28 y.o. male status post robotic assisted laparoscopic cholecystectomy on 08/26/2023. He is doing well and has no concerns. He has not taken any pain medication in 1 week. He denies nausea and vomiting. He is tolerating oral intake. He is having regular bowel function. He denies any fever. 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 He is ready to return to work. He states the majority of his patients use the Mo lift. Objective Vitals: 09/08/23 1414 BP: 152/85 Pulse: 82 Physical Exam Constitutional: Appearance: Normal appearance. Abdominal: General: There is no distension. Palpations: Abdomen is soft. Tenderness: There is no guarding. Skin: General: Skin is warm and dry. Findings: Bruising present. No erythema. Comments: Lap sites clean, dry and intact. Small amount of bruising. No signs of infection. Neurological: Mental Status: He is alert. Assessment Migdalia Carbajal is a 28 y.o.male postop laparoscopic cholecystectomy. Plan No pushing, pulling, lifting over 10 lb for another 4 weeks. May return to work with light duty. Follow-up as needed. Status post laparoscopic cholecystectomy [Z90.49] [facility] [place] This note was created with the assistance of a speech recognition program. While intending to generate a timely document that accurately reflects the content of the visit, no guarantee can be provided that every grammatical or spelling mistake has been or will be identified or corrected. Thank you for your understanding. KLARISSA Parks 09/08/23 1428 documented in this encounter [facility] Discharge summary note 07-03-2020 Note [...] (2) Additional Resources for Patient and Family: [facility] Tobacco Use: Screening: Was the patient screened within the first 3 days of admission for tobacco use (cigarettes, smokeless tobacco, pipe, and cigar) within the previous 30 days: patient refused (2) This patient is being discharged on multiple antipsychotic medications: no: Take all medications until outpatient provider advises otherwise. (2) Questions After Hospitalization: Phone Number: [facility] (1) For Results of Any Studies Pending at Discharge: Phone: [facility] (2) Advance Directives: Advance Directive (Medical)no(2) Advance [...] Up Appointments: Follow-Up Appointment 01: Physician/Dept/Service: [facility] Reason for Referral: Follow up appt Scheduled Date/Time: 20-Jul-2020 16:00 Location: [place] appt Follow-Up Appointment 02: Physician/Dept/Service: Dr. Angela - PCP Reason for Referral: Blood pressure follow up / GERD follow up Scheduled Date/Time: 05-Jul-2020 10:00 Location: [address] [place] [address] [place] [address] Discharge Medications: Home Medication OXcarbazepine 150 mg [...] therapy safety plan (more content not included)... [facility] Clinical Note 07-01-2020 Note Date & Type Note Facility 07-01-2020 Note History Present Illn ess: Admission Reason: Suicidal thoughts HPI: PER EPAT: Pt, who is a 25 year old male, presents to the [place] ED with a chief complaint of suicidal ideation. Prior to assessment, pt's EMR including; Provider note, triage note, and community record were reviewed. Today, pt was brought to the ED by his jean. 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 They have been together for 2 years [...] checked: no Objective: Objective Information: T PRBPSpO2 [id number]/8897% Date/Time07/01 10: 10: 10: 10: 10:07 Range(37C [...] certify this pa (more content not included)... [facility] Evaluation note Note Date & Type Note Facility Evaluation note No assessment information availa [facility] Work Phone: Evaluation note Note Date & Type Note Facility Evaluation note Diagnosis Status post laparoscopic cholecystectomy- Primary Other postprocedural status documented in this encounter [facility] Instructions Note Date & Type Note Facility Instructions Not on filedocumented in this en counter [facility] Instructions Note Date & Type Note Facility Instructions Not on filedocumented in this en counter [facility] Summary Purpose Family History No Family History Records FoundNo Family History Records FoundNo Family History Records FoundNo Family History Records Found Advance Directives Advance Directive Response Recorded Date/ Time Advance Directives No November 07, 2023 11:23am Chief Complaint and Reason for Visit Chief Complaint Admit Date Congestion, sore throat August 25, 2024 2:38pm Additional Source Comments (unrecognized sect ion and content) No Status Records FoundNo Status Records FoundNo Status Records FoundNo Status Records Found INFORMATION SOURCE (unrecogn ized section and content) DATE CREATED AUTHOR 07/06/2020 [facility] DATE CREATED AUTHOR AUTHOR'S ORGANIZ ATION 07/18/2020 [facility] DATE CREATED AUTHOR AUTHOR'S ORGANIZ ATION 09/03/2023 [facility] DATE CREATED AUTHOR AUTHOR'S ORGANIZ ATION 09/09/2023 [facility] Care Teams (unrecognized sec tion and content) Team Status: Inactive Member Role Status Dates Kwan Chi , DO Attending Provider Active S tart: August 25, 2023 End: August 25, 2023 Team Status: Inactive Member Role Status Dates Kwan Chi , DO Attending Provider Active S tart: August 26, 2023 End: August 26, 2023 Team Status: Active Member Role Status Dates NON STAFF Primary Care Provider Active Team Status: Inactive Member Role Status Dates Dilma Lyons APRN Attending Provider Active Start: August 25, 2024 End: August 25, 2024 NON STAFF Primary Care Provider Active Start: August 25, 2024 End: August 25, 2024 Goals (unrecognized section and content) Goals may be documented in a n alternate sectionGoals may be documented in an alternate sectionNot on filedocumented as of this encounterNot on filedocumented as of this encounterGoals may be documented in an alternate section Reason for Visit (unrecogniz ed section and content) Reason Comments Post-op Post op davinci chol ecystectomy performed 08/26/23 at [facility] PERTAINING TO PATIENTS WHO ARE [...] BE BASED ON THE PRIMARY CLINICAL RECORDS. [employer] provides no warranty or guarantee of the accuracy or completeness of information in this document.
[2024-08-28 18:30] VITALS: PULSE 92; TEMP 38.4; O2SAT 100; BMI 37.5
[2024-08-28 18:38] VITALS: BP 148/92
[2024-08-28 18:52] LABS: Internal Control Within Normal Limits; Strep A Antigen Screen Negative
[2024-08-28 18:53] LABS: Influenza Virus A Antigen Negative; Influenza Virus B Antigen Negative; Internal Control Within Normal Limits
[2024-08-28 18:55] LABS: Internal Control Within Normal Limits; SARS-CoV-2 Ag NEGATIVE (NEGATIVE)
--- NOTE | 2024-08-28 18:56 | ED_ITS ---
HPI - URI/Sore Throat General Chief Complaint: Upper Respiratory Infection Stated Complaint: sore throat Time Seen by Provider: 08/28/24 18:38 Source: patient History of Present Illness HPI Narrative: The patient is a 29-year-old male who has been having for the last 1 week sore throat chills and generalized body ache, patient was evaluated in urgent care and was tested negative for COVID flu The patient still have sore throat and has been having some high-grade fever at home Related Data Previous Rx's ?Medication ?Instructions ?Recorded lisinopril 20 1 tab PO QD #30 tabs 4 mg-hydrochlorothiazide 12.5 mg tablet oxycodone-acetaminophen 5 mg-325 1 tab PO Q6H PRN pain 5 days #20 08/27/23 mg tablet tabs amoxicillin 875 mg-potassium 1 tab PO BID #14 tabs clavulanate 125 mg tablet ibuprofen 800 mg tablet 800 mg PO Q8H PRN pain #20 t abs 08/28/24 Allergies Allergy/AdvReac Type Severity Reaction Status Date / Time No Known Drug Allergies Allergy Verified 08/25/23 20:46 Review of Systems ROS Status of ROS 10 or more systems reviewed and unremark able except as noted in history and below [facility] Medical History Benign essential hypertension ?I10 - Essential (primary) hypertension (ICD-10) Colitis ?K52.9 - Noninfective gastroenteritis and colitis, unspecified (ICD-10) Nausea & vomiting ?R11.2 - Nausea with vomiting, unspecified (ICD-10) Constipation ?K59.00 - Constipation, unspecified (ICD-10) Uncontrolled hypertension ?I10 - Essential (primary) hypertension (ICD-10) Social History Smoking status: Current some day smoker Highest level of school completed/degree received: high school graduate Exam Narrative Exam Narrative: Nurses notes and vital signs reviewed and patient is not hypoxic. General: Well-appearing and in no apparent distress. Skin: Warm, dry, no pallor noted. No rash. Head: Normocephalic, atraumatic. Neck: Supple, non-tender. Eye: Pupils are equal, round and EOMI. No scleral icterus. Ears, Nose, Mouth, and Throat: TM are clear, no nasal mucosal hypertrophy. Oral mucosa is moist, the patient have erythema of the posterior pharynx but there is no compromise of the airway, the patient is not very cooperative with exam and her deep gagging the patient have a normal bowel sounds breathing is normal Cardiovascular: Regular Rate and Rhythm without murmur, gallop or rub. Respiratory: No accessory muscle use or respiratory distress. Lungs are clear to auscultation, no wheezing, rales or rhonchi Chest Wall: no tenderness Back: No midline thoracic or lumbar vertebral tenderness. No CVA tenderness Musculoskeletal: normal ROM, no calf or popliteal tenderness, no lower extremity edema/swelling GI: Abdomen is soft, non-distended. Normal bowel sounds. No masses appreciated. No tenderness to palpation. No rebound, guarding, or rigidity noted. Neurological: A&O x4. No cranial nerve dysfunction observed. No truncal ataxia. Moves all extremities. Sensation intact. Psychiatric: Cooperative and interactive. Normal mood and affect. Constitutional Vital Signs, click to edit/add: Last Vital Signs Temp 101.2 F H 08/28/24 18:30 Pulse 92 H 08/28/24 18:30 Resp 18 08/28/24 18:30 BP 148/92 H 08/28/24 18:38 Pulse Ox 100 08/28/24 18:30 Course Vital Signs Vital signs: Vital Signs Temperature 101.2 F H 08/28/24 18:30 Pulse Rate 92 H 08/28/24 18:30 Respiratory Rate 18 08/28/24 18:30 Pulse Oximetry 100 08/28/24 18:30 Temperature 101.2 F H 08/28/24 18:30 Pulse Rate 92 H 08/28/24 18:30 Respiratory Rate 18 08/28/24 18:30 Blood Pressure 148/92 H 08/28/24 18:38 Pulse Oximetry 100 08/28/24 18:30 MDM - URI/Sore Throat MDM Narrative Medical decision making narrative: With the patient continuous symptoms for a week and the sore throat associated with high-grade fever The patient is high suspicion of possible strep pharyngitis he was started on Augmentin in addition to supportive care instructed to monitor his symptoms There is no difficulty breathing or any difficulty speaking at any time and the patient will come back in case of new symptoms The patient is to follow up with primary care physician in next 2-3 days or to return to the emergency department should any of the signs or symptoms worsen or new symptoms develop. The patient agrees with the following Diagnosis and Treatment plan and the patient will be discharged home. Lab Data Labs: Lab Results 08/28/24 Range/Units 18:32 Influenza Type A Ag Negative Influenza Type B Ag Negative SARS-CoV-2 Ag (CV2AG) Negative (NEGATIVE) Streptococcus Screen Negative Discharge Plan Discharge Chief Complaint: Upper Respiratory Infection Clinical Impression: Pharyngitis Patient Disposition: Home, Self-Care Time of Disposition Decision: 18:55 Condition: Good Prescriptions / Home Meds: New amoxicillin-pot clavulanate 875-125 mg tablet 1 tab PO BID Qty: 14 0RF ibuprofen 800 mg tablet 800 mg PO Q8H PRN (Reason: pain) Qty: 20 0RF No Action lisinopril-hydrochlorothiazide 20-12.5 mg Tablet 1 tab PO QD Qty: 30 0RF oxycodone-acetaminophen 5-325 mg Tablet 1 tab PO Q6H PRN (Reason: pain) 5 Days Qty: 20 0RF Print Language: Czech Instructions: Pharyngitis (ED), Strep Throat (DC) Referrals: Physician,Non-Staff, MD [Primary Care Provider] - 1 week
[2024-08-28] MEDS: AMOXICILLIN/POT CLAV 875-125 MG TABLET 1 TAB PO (19:00)
[2024-08-28] MEDS: IBUPROFEN 400 MG TABLET 800 MG PO (19:00)
== END 2024-08-28 19:10 | disposition home or self-care (01) ==
PROVIDERS: Emergency Provider Emergency Medicine
DX: J02.9 Acute pharyngitis, unspecified (principal); F17.200 Nicotine dependence, unspecified, uncomplicated; R50.9 Fever, unspecified
CPT/HCPCS: 87070; 87804; 87811; 87880; 99283

== ENCOUNTER 2025-01-13 09:45 | Emergency (ER) | payer OTHER, SELFPAY ==
[2025-01-13 09:47] VITALS: BP 181/104; PULSE 70; TEMP 36.7; O2SAT 100; BMI 34.4
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
--- OUTSIDE RECORDS SUMMARY | 2025-01-13 10:38 | XMS_ITS | Clinical Summary ---
Author Organization [facility] Address [address] [place] [id number] Care Team Providers Care Alloy Weigher Name Role Phone Unavailable Primary Care Provider Unavailabl e Allergies Active AllergyReactionsCriticalityNoted QvivNshsixxoIdnztvjevthsiv40/30/2002 HYPER WITH BENADRYL Gtxzfvz7908/31/2002 Hyper with codeine No Latex Or Eggs [Other]02/10/2002 Medications MedicationSigDispense QuantityRefillsLast FilledStart DateEnd DateStatus ALBUTEROL .83MG/ML SOLUTION 0.5ml give with 2cc Normal Saline via aerosol treatment qs Active ZYRTEC 1MG/ML SYRUP 1 tsp po qd qs Active ORAPRED 15MG/5ML SOLUTION 3 teaspoonful once a day for 5 days. 90 ml Active POLYTRIM EYE DROPS instill 1 drop to affected eye 4 times a day, use 2 days past clear 1 bottle Active Immunizations ImmunizationAdministration DatesNext DueHaemophilus influenzae b (HbOC) vaccine, 4-dose series (HIBTITER)05/04/1998,1997,1997,1997diphtheria tetanus pertussis (DTaP) vaccine, pediatric (INFANRIX)05/31/2002,08/11/1998, 1997,1997,1997hepatitis B (HepB) vaccine, 3-dose series, age 0 yr - 19 yr (ENGERIX B-PEDS, RECOMBIVAX HB-PEDS)1997,1997,1997 influenza vaccine, unspecified ywazsgryfxj87/31/2003,01/30/2001,01/30/2000, 02/22/1999,01/24/1999measles mumps rubella (MMR) vaccine (M-M-R II, PRIORIX) 01/30/2001,05/04/1998pneumococcal (PCV7) vaccine, 7 valent (PREVNAR 7)02/12/2001 poliovirus (IPV) vaccine, inactivated (IPOL)05/31/2002,1997,1997, 1997varicella (ADALBERTO) vaccine (VARIVAX)02/04/1998 Social History Tobacco UseTypesPacks/DayYears UsedDateSmoking Tobacco: Never AssessedSex and Gender InformationValueDate RecordedSex Assigned at BirthNot on fileLegal Sex Male02/16/2012 9:05 AM ESTGender IdentityNot on fileSexual OrientationNot on file Last Filed Vital Signs Vital SignReadingTime TakenCommentsBlood Drummfew37/6202/10/2002 3:30 PM EST Hyfef903802/10/2002 3:30 PM ZKVTbzblmqbjaw74.2 ??C (97.2 ??F)01/14/2003 10:00 AM ESTRespiratory Rate--Oxygen Saturation--Inhaled Oxygen Concentration--Yfxkme78 kg (75 lb)10/27/2002 3:30 PM BLJKlrioi650.4 cm (3' 11 )02/10/2002 3:30 PM EST Body Mass Index-- Plan of Treatment Health MaintenanceDue DateLast DoneCommentsDTaP,Tdap,Td Vaccine (6 - Tdap) , 08/11/1998, 1997, Additional history existsAnxiety Mexnmlijq88/13/2015Depression Grdglshro05/13/2015HIV Yfhyttkys83/13/2015 Hepatitis C Jkskngwgu32/13/2015HPV Vaccine (1 - 3-dose SCDM series)01/28/2024 Covid-19 Vaccine (2024- season)2024Influenza Vaccine (#1)2024 01/14/2003, 01/30/2001, 01/30/2000, Additional history existsHepatitis B Vaccine Cpzzjexuv17/22/1998, 1997, 1997
--- OUTSIDE RECORDS SUMMARY | 2025-01-13 10:38 | XMS_ITS | Clinical Summary ---
Author Organization [facility] Address [address] [facility] [place] [address] Care Team Providers Care Trolley Collector Name Role Phone Unavailable Primary Care Provider Unavailabl e Source Comments The following information is NOT included in Care Everywhere downloads:Psychiatric notes, ECG results, Cardiac Rehab notes, Pulmonary Function notes, data from SmartForms (includes but not limited toPregnancy data,audiograms, eye exams, pre-surgical evaluation notes, well-child exam data).[facility] Immunizations ImmunizationAdministration DatesNext DueDTaP (CVX=20)05/31/2002,08/11/1998, 1997,1997,1997Hep B (peds/adol, 3-dose) (CVX=08)1997, 1997,1997Hib (HbOC) (CVX=47)05/04/1998,1997,1997, 1997Influenza, unspecified formulation (CVX=88)01/14/2003,01/30/2001, 01/30/2000,02/22/1999,01/24/1999MMR, Xuccuko-Tllsp-Ukgfncg (CVX=03)01/30/2001, 05/04/1998Pneumococcal conjugate 7 valent (PCV7) (WES=644)02/12/2001Polio, inactivated (IPV) (CVX=10)05/31/2002,1997,1997,1997Varicella (Chickenpox) (CVX=21)02/04/1998 Social History Tobacco UseTypesPacks/DayYears UsedDateSmoking Tobacco: Never AssessedSex and Gender InformationValueDate RecordedSex Assigned at BirthNot on fileLegal Sex Male03/09/2020 8:10 AM ESTGender IdentityNot on fileSexual OrientationNot on file Plan of Treatment Health MaintenanceDue DateLast DoneCommentsHIV Test01/28/2012Hepatitis C Mcmspiij75/13/2015Tdap Jepkiys1701/27/2015Hepatitis A (HAV) Vaccine (optional start 19+ years)01/28/2016HPV Vaccine (optional start 27-45 years)01/28/2024 COVID-19 Vaccine (2024- season)2024Influenza Vaccine (#1)2024 01/14/2003, 01/30/2001, 01/30/2000, Additional history existsShingles (RZV) Vaccine (1 of 2)2047Hepatitis B (HBV) JnezogzDqfnmxjsb35/22/1998, 1997, 1997Pneumococcal Vaccine(s)Aged Out02/12/2001No longer eligible based on patient's age to complete this topic Insurance
--- OUTSIDE RECORDS SUMMARY | 2025-01-13 10:38 | XMS_ITS | Clinical Summary ---
Author Organization [facility] Address [address] [place] [address] Phone Care Team Providers Care Poultry Scalder Name Role Phone Unavailable Primary Care Provider Unavailabl e Social History Tobacco UseTypesPacks/DayYears UsedDateSmoking Tobacco: Never AssessedSex and Gender InformationValueDate RecordedSex Assigned at BirthNot on fileLegal Sex Male02/09/2022 10:55 AM ESTGender IdentityNot on fileSexual OrientationNot on file Plan of Treatment Not on file
--- OUTSIDE RECORDS SUMMARY | 2025-01-13 10:38 | XMS_ITS | Clinical Summary ---
Author Organization [facility] Address [id number] [address] [place] [address] Care Team Providers Care Pilot Manager Name Role Phone Unavailable Primary Care Provider Unavailabl e Allergies Active AllergyReactionsCriticalityNoted TdsgCmpjixwuCwfniEwvtqOkngfj35/24/2024 Rash Medications MedicationSigDispense QuantityRefillsLast FilledStart DateEnd DateStatus lisinopril-hydroCHLOROthiazide (PRINZIDE,ZESTORETIC) 20-12.5 mg per tablet Take 1 tablet by mouth in the morning.08/27/2023ctive Active Problems No known active problems Family History Medical HistoryRelationNameCommentsMental illnessFatherDiverticulosisMotherHeart attackMotherHypertensionMotherRelationNameStatusCommentsFatherAliveMother Social History Tobacco UseTypesPacks/DayYears UsedDateSmoking Tobacco: Every DaySmokeless Tobacco: Never Tobacco Cessation:Ready to Q uit: Not Asked; Counseling Given: Not Answered Alcohol UseStandard Drinks/WeekCommentsYes0 (1 standard drink = 0.6 oz pure alcohol)sociallyHunger ScreeningAnswerDate RecordedWithin the past 12 months we worried whether our food would run out before we got money to buy more.Never True09/08/2023Food Insecurity - InabilityNot on file09/08/2023Sex and Gender InformationValueDate RecordedSex Assigned at BirthNot on fileLegal SexMale 08/27/2023 9:02 AM EDTGender IdentityNot on fileSexual OrientationNot on file Last Filed Vital Signs Vital SignReadingTime TakenCommentsBlood Urjtonbn495/85009/08/2023 2:14 PM EDT Hklpi670109/08/2023 2:14 PM EDTTemperature--Respiratory Rate--Oxygen Saturation-- Inhaled Oxygen Concentration--Oxwhva263.4 kg (278 lb 9.6 oz)09/08/2023 2:14 PM NJLVhxozz476.3 cm (6' 4.5 )09/08/2023 2:14 PM EDTBody Mass Index33.4706 2:14 PM EDT Plan of Treatment Health MaintenanceDue DateLast DoneCommentsDepression Rwkfxhvdk87/13/2009 DTaP,Tdap and Td Vaccines (7 - Tdap), 05/31/2002, 08/11/1998, Additional history existsAdult BMI Gecrqxhgq03 Tobacco Xrwnjabgj34OVID-19 Vaccine ( season) /, 04/15/2020Influenza Lhmtjns54/07/2008, 01/14/2003, 01/30/2001, Additional history exists Medical Devices Not on file
--- OUTSIDE RECORDS SUMMARY | 2025-01-13 10:40 | XMS_ITS | CCD ---
Author Organization [facility] Inform ion Partnership [facility] Care Team Providers Care Publication Director Name Role Phone Unavailable Primary Care Provider UnavailDO Kwan Denis Attending Provider Unavailab DO Kwan Pruett Attending Provider Unavailab Kwan Pruett Attending Unavailable Kwan Chi Admitting Unavailable MAHNAZ TOLENTINO Attending Unavailable Unavailable Primary Care Provider Unavaililan e Allergies Allergy ClassificationReported Allergen(s)Allergy TypeDate of OnsetReaction(s) Facility (3 sources)Latex; Translations: [LATEX]Propensity to adverse reactions to drug (disorder)60-95-5636IvwccSjoJyrqnb Repository Medications Current Medications MedicationDrug Class(es)DatesSig (Normalized)Sig (Original)hydroCHLOROthiazide 12.5 mg / lisinopril 20 mg oral tablet (1 source)Thiazide Diuretic, Angiotensin Converting Enzyme InhibitorStart: 43-02-9023pvae 1 tablet by mouth once in the morninglisinopril- hydroCHLOROthiazide (PRINZIDE,ZESTORETIC) 20-12.5 mg per tablet Take 1 tablet by mouth in the morning. 08/27/2023 Active Problems Problem ClassificationProblemDateDocumented DateEpisodic/ChronicAnxiety disorders (1 source)Anxiety; Translations: [Anxiety disorder, unspecified]08-25-2024 ChronicEssential hypertension (1 source)Hypertensive disorder; Translations: [Essential (primary) hypertension]19-75-3173UgnfdqdOkfs disorders (1 source)Bipolar disorder; Translations: [Bipolar disorder, unspecified] 01-12-6490CndiagmDcbbpfed codes; unclassified (1 source)Acquired absence of other specified parts of digestive tract; Translations: [Acquired absence of other specified parts of digestive tract] Onset: 23-70-4437DktmxppcWvvsbspghxcv (1 source)Post-opOnset: 09-08-2023 Results Test NameValueInterpretationReference RangeFacilityNo Panel InformationOrdered By: Dilma Lyons on 83-26-7924Faree Strep (POC)[facility] CenterNo Panel Informationon 01-09-4961GrdMksciaCorey HospitalLon 08-26-2023L Specimen: [id number] Received: 08/27/23 Status: SOUT Req Num: [id number] Spec Type: Surgical Subm Dr: Sonido Leo DO Tissues: A Gallbladder (GB/CONTENTS) Procedures: HE/2, Gross/Micro L3 Age/ Patient Sex Location Account Attending Physician Migdalia Carbajal 28/M [place] [id number] Kwan Chi DO SPEC NUM: [id number] RECD: 08/27/23 STATUS: NILTON REQ NUM: [id number] GO: 08/26/[address]: Sonido Leo DO ENTERED: 08/27/[address] [facility] DR: Kelly,Lab SPEC TYPE: Surgical DEPT: MEI [...] (gallbladder) and A2 (lymph node). CPT Codes 26884 Specimen: [id number] Received: 08/27/23 Status: NILTON Polo Num: [id number] Spec Type: Surgical Subm Dr: Sonido Leo DO Tissues: A Gallbladder (GB/CONTENTS) Procedures: Dina LOZA/Calli L3 Patient: Migdalia Carbajal [id number] (Continued) Signed (signature on file) Atul Cerna MD 08/28/[address] [place] [address] Physician GroupDaily Progress Note-General Internal Medicineon 64-84-7598Xddvg Progress Note-General Internal Medicine Consult Type: subsequent [...] night. Objective Data: Objective Information: T PRBPSpO2 Value36.24790944/9199% Date/Time07/03 8: 15: 15: 15: 15:10 Range(36.4C - 36.4C ) (78 - 87 ) (16 - 18 ) (139 - 170 )/ (88 - 111 ) (99% - 100% ) Pain reported at 07/03 9:45: 0 = None T PRBPSpO2 Value36.35435337/9199% Date/Time07/03 8: 15: 15: 15: 15:10 Range(36.4C [...] mood and behavior Medication: Medications: Continuous Medications No continuous medications are active Scheduled Medications 1. amLODIPine (NORVASC): 5 mg Oral Daily 2. OXcarbazepine: 150 mg Oral 2 Times a Day 3. Pantoprazole: 40 mg Oral Daily 4. Sertraline: 50 mg Oral Daily PRN Medications 1. Acetaminophen: 650 mg Oral [...] document was written with the use of eCaring, a voice recognition program. Please excuse any errors in documentation. Electronic Signatures: Kristi Sanchez (NICOLETTE-PHARMACY BENEFIT MANAGER) (Signed 03-Jul-2020 21:20) Authored: Service, Subjective Data, Objective Data, Assessment and Plan, Note Completion Last Updated: 03-Jul-2020 21:20 by Kristi Sanchez (PREFABRICATED HOUSES TRIMMER-PHARMACY BENEFIT MANAGER)[facility] CenterDischarge Xtdnwhq9bj 11-27-5948Ctlmzutdb Dgpovqv8Laqlrnrvs Orders: Anticipated Discharge Date: Anticipated Discharge Bnwg33-Ofm-9305 Anticipated Discharge Time12:14 Problem List: Admitting Dx: Bipolar affective disorder, depressed, severe: Catalog Name: Bipolar disorder, current episode depressed, severe, without psychotic features DNAR: DNAR Status: none Psychiatric Continuing Care Plan: Discharge Destination: home Advance Directive/DNR: no Additional Resources for Patient and Family: [facility] Tobacco Use: Screening: Was the patient screened within the first 3 days of admission for tobacco use (cigarettes, smokeless tobacco, pipe, and cigar) within the previous 30 days: patient refused This patient is being discharged on multiple antipsychotic medications: no: Take all medications until outpatient provider advises otherwise. Questions After Hospitalization: Phone Number: [employer] For Results of Any Studies Pending at Discharge: Phone: [employer] Advance Directives: Advance Directive (Medical)no Advance Directive [...] Review of Medication Reconciliation and Orders Completedby PREFABRICATED HOUSES TRIMMER Reviewing ProviderKLARISSA Calles at 03-Jul-2020 12:14:33 Appointments: Follow-Up Appointment 01: Phys[facility]/Dept/ServiceThe [facility] Reason for ReferralFollow up appt Scheduled Date/Ztix50-Uje-9675 16:00 [facility] appt Phone [phone] CommentsPlease answer all private and unknown calls on the day of the appt. Follow-Up Appointment 02: Physician/Dept/ServicePrimary Care Physician Reason for ReferralBlood pressure follow up / GERD follow up Call to Schedule in2-3 days CommentsNursing Staff to schedule appoitment Electronic Signatures: Marce Zhou ([facility]) (Signed 03-Jul-2020 12:14) Authored: Discharge Orders, Psychiatric Continuing Care Plan, Provider FINAL REVIEW of Orders Kristi Sanchez (PREFABRICATED HOUSES TRIMMER-[facility]) (Signed 03-Jul-2020 11:44) Authored: Discharge Orders, Appointments Cooper Newton ([facility]) (Signed 03-Jul-2020 11:08) Authored: Discharge Orders, Appointments, Gold Form - Gps Navigation Installer Summary Last Updated: 03-Jul-2020 12:14 by Marce Zhou ([facility]RIC[facility] H[facility]ES TR[facility]MER[facility] CenterOrder Reconciliationon 17-46-5593Lmiyj ReconciliationPage 1 Discharge Reconciliation Document Reconciliation Type: Discharge requested on behalf of Kristi Sanchez (Advanced Practice Nurse) done by Kristi Sanchez ([facility]) Discharge - Partial Reconciliation: 03-Jul-2020 12:13 by: Marce Zhou ([facility]) Discharge - Reconciliation: 03-Jul-2020 13:29 by: Kristi Sanchez ([facility]) Current OrdersDateHOME MEDICATIONS AT DISCHARGE DateReconciliation Comment/ [...] be shared with your follow-up providers (doctor, library services assistant, physical therapist, etc.). Guidelines for a Healthy [...] your follow-up providers ( (more content not included)...[facility] CenterConsult-General Internal Medicineon 46-73-5234Cykstez-General Internal MedicineService: Service: General Internal Medicine Consult: Consult requested by (Attending Name): Ernesto Queen Reason: H & P History of Present Illness: Admission Reason: SI HPI: PER EPAT: Pt, who is a 25 year old male, presents to the [facility] ED with a chief complaint of suicidal ideation. Prior to assessment, pt's EMR including; Provider note, triage note, and community record were reviewed. Today, pt was brought to the ED by his fihugoe. They had been arguing because his fiancee [...] a therapist for the past year at [employer] for effective living but when his therapist [...] Known Allergies: Objective: Objective Information: T PRBPSpO2 Value36.34120223/8498% Date/Time07/02 9:11418 12: 12: 12: 12:24 Range(36.5C - 36.5C ) (68 - 97 ) (18 - 18 ) (163 - 180 )/ (84 - 107 ) (97% - 99% ) Physical Exam by System: Constitutional: Well developed, awake/alert/oriented x3, no distress, alert and cooperative Eyes: PERRL, EOMI, clear sclera ENMT: mucous membranes zac (more content not included)...NormalPagosa Springs Medical CenterDaily Progress Note - Psychiatryon 88-35-9593Gapba Progress Note - PsychiatrySubjective Data: MIGDALIA CARBAJAL is a 25 year old Male who is Hospital Day # 3. Additional Information: Pt SEEN D/W TEAM Report feeling much better today Seen reading book and his concentration is better Sleep and appetite good No negative thinking or suicidal thoughts No hopeless or worthless feeling Objective: Objective Information: T PRBPSpO2 Value36.95591870/39158% Date/Time07/02 9: 9: 9:114 9:114 9:11 Range(36.5C - 36.5C ) (89 [...] care recommendations. Assessment and Plan: Risk Assessment: [place] Suicide Risk: negative (1) DASA Risk for [...] 4. A + I - Behavioral 01-Jul-2020 21:31[facility] CenterDaily Progress Note - Psychiatryon 30-11-0388Yypag Progress Note - PsychiatrySubjective Data: MIGDALIA CARBAJAL is a 25 year old Male who is Hospital Day # 2. Additional Information: Pt report feeling depressed anxious and hopeless Poor eye contact during the interview Pt has been having passive SI Admit to mood swings, anger irritability and impulsivity Slept better last night Objective: Objective Information: T PRBPSpO2 Value37.31795693/8897% Date/Time07/01 10: 10: 10: 10: 10:07 Range(37C [...] need for recommended treatments. Medications: Continuous Medications No continuous medications are active Scheduled Medications 1. OXcarbazepine: 150 mg Oral 2 Times a Day 2. Sertraline: 50 mg Oral Daily PRN Medications 1. Acetaminophen: 650 mg Oral [...] 24 Hours Assessment and Plan: Risk Assessment: [place] Suicide Risk: low (1) DASA Risk for [...] 4. A + I - Behavioral 30-Jun-2020 22:25[facility] CenterOrder Reconciliationon 74-15-6507Wpsks ReconciliationPage 1 Admission Reconciliation Document Reconciliation Type: Admission requested on behalf of Mahnaz Wilkerson (Advanced Practice Nurse) done by Mahnaz Wilkerson ([facility]FABRICATED HOUSES TRIMMER[facility]) Admission - Reconciliation: 01-Jul-2020 10:04 by: Mahnaz Wilkerson (PREFABRICATED HOUSES TRIMMER-PHARMACY BENEFIT MANAGER) Additional Current Orders Acetaminophen Tablet (TYLENOL)DOSE = [...] Sertraline Tablet (ZOLOFT)DOSE = 50 mg Oral DailyLankenau Medical Center TSHon 47-59-2705IKZ Qn1.76 m[IU]/LNormal0.44 - 3.98[facility] Comment on above:Result Comment: TSH testing is performed using different testing methodology at [facility] than at other [facility]. Direct result comparisons should only be made within the same method.Performed By: #### TSH2 #### [facility] [address] [place], [place] [id number] TOXICOLOGY PANEL, BLOODon 44-11-0760Gwruigljfalsg [Mass/Vol]ug/mSPewzmt89.0 - 30.0[facility]cin[facility] HospitalComment on above: Performed By: #### DRUBL #### [facility] [address] [place], [place] [address]Uarqync [Mass/Vol]mg/dLNormAultman Orrville HospitalComment on above:Result Comment: FOR MEDICAL USE ONLY. . REF VALUES <10Performed By: #### DRUBL #### [facility] [address] [place], [place] [address]JGKQTCUAXQ<9Ctqfgc8 - 20UH [facility] HospitalComment on above: Performed By: #### DAVID #### [facility] [address] [place], [place] [address]Gjpdgdaag Risk Screen - Adulton 91-83-4993Ficipoebc Risk Screen - AdultAllergies: Allergies: No Known Allergies: Patient Verification: New [...] Diagnosisyes (15) Intravenous Therapy/ Heparin/Saline Lockno (0) Gait/Transferringnormal/bedrest/wheelchair (0) Ambulatory Aidsnone/bedrest/nurse assist (0) Mental Statusoriented [...] instruction; written material Cultural Considerationsnone Developmental Considerationsnone Judaism Considerationsnone Learning Assessment (Other Learner): Other learner [...] Spiritual Screen: Are there any cultural, spiritual, mu-ism practices/values/needs that are important for us to knowno Vaccinations: Vaccination - Influenza Vaccination Screen: Is it flu season (between and June 14)No Vaccination - Pneumonia Vaccination Screen: Patient has received a previous pneumonia vaccine:no/unknown... Immunocompetent persons with underlying chronic conditions or reside in half-way care facilitiesnone of these conditions Persons with [...] the punches Safety Wanding: [place] Wanding Resultsnegative [place] Suicide: STEP 1 Risk Screen Not Applicable/Able [...] Was this within the past 3 monthsno [place] S (more content not included)...NormalPagosa Springs Medical CenterCBC AND DIFFERENTIALon 06-30-2020% AUTOMATED IMMATURE GRAN0.3 %Normal0.0 - 0.9[facility]cinas HospitalComment on above:Result Comment: Immature Granulocyte Count (IG) includes promyelocytes, myelocytes and metamyelocytes but does not include bands. Percent differential counts (%) should be interpreted in the context of the absolute cell counts (cells/L).Performed By: #### CBCDF #### [address] [address]Onwncvsju (Bld) [#/Vol]0.04 10*3/uLNormal0.00 - 0.10[facility]cin[facility] HospitalComment on above:Performed By: #### CBCDF #### [address] [address]Zhtohzvip/100 WBC (Bld)0.5 %Normal0.0 - 2.0[facility]cin[facility] HospitalComment on above:Performed By: #### CBCDF #### [address] [address]Intmsdapemx (Bld) [#/Vol]0.36 10*3/uLNormal0.00 - 0.70[facility] HospitalComment on above:Performed By: #### CBCDF #### [address] [address]Hkszmvkkzvo/100 WBC (Bld)4.5 %Normal0.0 - 6.0[facility]cin[facility] HospitalComment on above:Performed By: #### CBCDF #### [address] [address]Flnmqgvhgob distribution width (RBC) [Ratio]12.7 %Dlgjvf34.5 - 14.5[facility] HospitalComment on above:Performed By: #### CBCDF #### [address] [address]Fkbdfbcuri (Bld) [Volume fraction]46.1 %Rwhvea36.0 - 52.0[facility] HospitalComment on above:Performed By: #### CBCDF #### [address] [address]Wycjbzxmvt (Bld) [Mass/Vol]15.4 g/gVTijqva76.5 - 17.5[facility] HospitalComment on above:Performed By: #### CBCDF #### [address] [address]Ntoaaawcwqk (Bld) [#/Vol]3.52 10*3/uLNormal1.20 - 4.80[facility] HospitalComment on above:Performed By: #### CBCDF #### [address] [address]Tebwzamkopr/100 WBC (Bld)44.1 %Gjwbkj83.0 - 44.0[facility] HospitalComment on above:Performed By: #### CBCDF #### [address] [address]SPSW (RBC) [Mass/Vol]33.4 g/nONbhfyl12.0 - 36.0[facility] HospitalComment on above:Performed By: #### CBCDF #### [address] [address]OKK (RBC) [Entitic vol]84 cCUugeti86 - 100[facility] Comment on above:Performed By: #### CBCDF #### [address] [address]Ghoupvpyg (Bld) [#/Vol]0.43 10*3/uLNormal0.10 - 1.00[facility] HospitalComment on above:Performed By: #### CBCDF #### [address] [address]Wcybgwbfl/100 WBC (Bld)5.4 %Normal2.0 - 10.0[facility] HospitalComment on above:Performed By: #### CBCDF #### [address] [address]Ogdqacecnzl (Bld) [#/Vol]3.61 10*3/uLNormal1.20 - 7.70[facility] HospitalComment on above:Performed By: #### CBCDF #### [address] [address]Avbcejxabvp/100 WBC (Bld)45.2 %Jmuqzo92.0 - 80.0[facility] HospitalComment on above:Performed By: #### CBCDF #### [address] [address]SWMOGOBBP RBC0.0 /100 WBCNormal0.0 - 0.0[facility] Comment on above:Performed By: #### CBCDF #### [address] [address]Izdovacjr (Bld) [#/Vol]246 10*3/dKDkxncn393 - 450[facility] HospitalComment on above:Performed By: #### CBCDF #### [address] [address]IME3.50 x10E12/LNormal4.50 - 5.90[facility] HospitalComment on above:Performed By: #### CBCDF #### [address] [address]LHB (Bld) [#/Vol]8.0 10*3/uLNormal4.4 - 11.3[facility] HospitalComment on above:Performed By: #### CBCDF #### [address] [address]UJAPLBKMQOBFI PANELon 58-91-0337Taixwhh [Mass/Vol]4.6 g/dLNormal 3.4 - 5.0[facility] HospitalComment on above:Performed By: #### CMP #### [address] [address]TNO [Catalytic activity/Vol]64 U/PBiuwks94 - 120[facility] HospitalComment on above:Performed By: #### CMP #### [address] [place] [address]GYK [Catalytic activity/Vol]60 U/LHigh10 - 52[facility] HospitalComment on above:Result Comment: Patients treated with Sulfasalazine may generate falsely decreased results for ALT.Performed By: #### CMP #### [address] [address]Rjaoe gap [Moles/Vol]13 mmol/HVktmxs33 - 20[facility] HospitalComment on above:Performed By: #### CMP #### [address] [address]YUI [Catalytic activity/Vol]32 U/LNormal9 - 39[facility] HospitalComment on above:Performed By: #### CMP #### [address] [address]Gmmlluxze [Mass/Vol]0.5 mg/dLNormal0.0 - 1.2[facility] HospitalComment on above:Performed By: #### CMP #### [address] [address]Txnnmah [Mass/Vol]9.9 mg/dLNormal8.6 - 10.3[facility] HospitalComment on above:Performed By: #### CMP #### [address] [address]Vudximdi [Moles/Vol]105 mmol/JKipmwd13 - 107[facility] HospitalComment on above:Performed By: #### CMP #### [address] [address]Nezcgpoias [Mass/Vol]0.93 mg/dLNormal0.50 - 1.30[facility] HospitalComment on above:Performed By: #### CMP #### [address] [address]VZA-BGGVWHW AM.>60Normal>60[facility] HospitalComment on above:Result Comment: CALCULATIONS OF ESTIMATED GFR ARE PERFORMED USING THE MDRD STUDY EQUATION FOR THE IDMS-TRACEABLE CREATININE METHODS. CLIN CHEM 2007;53:766-72Performed By: #### CMP #### [address] [address]YQU-DOE AM.>60Normal>60[facility] HospitalComment on above:Performed By: #### CMP #### [address], [place] [address]Bqkhnyg [Mass/Vol]112 mg/hKTrly46 - 99[facility] Comment on above:Performed By: #### CMP #### [address], [place] [address]ONG7 (Bld) [Moles/Vol]26 mmol/MMopggp54 - 32[facility] HospitalComment on above:Performed By: #### CMP #### [address], [place] [address]Szyilgizo [Moles/Vol]3.8 mmol/LNormal3.5 - 5.3[facility] HospitalComment on above:Performed By: #### CMP #### [address], [place] [address]Ttikqof [Mass/Vol]6.8 g/dLNormal6.4 - 8.2[facility] Comment on above:Performed By: #### CMP #### [address], [place] [address]Nhvsas [Moles/Vol]140 mmol/EWuaizn601 - 145[facility] HospitalComment on above:Performed By: #### CMP #### [address] [address]Ccfx nitrogen [Mass/Vol]17 mg/dLNormal6 - 23[facility] HospitalComment on above:Performed By: #### CMP #### [address], [place] [address]PXGZNSZGZVO 2019, SCREEN ASYMPTOMATICon 57-32-3478SZYF-CoV-2 (COVID-19) RNA OMAR+probe Ql (Unsp spec)Not detectedNormalNot DetectedAurora Las Encinas HospitalComment on above:Result Comment: . This assay is designed to detect the RdRp gene of SARS-CoV-2 via nucleic acid amplification. A Not Detected result does not preclude COVID-19 infection since the adequacy of sample collection and/or low viral burden may result in presence of viral nucleic acids below the clinical sensitivity of this test method. Fact sheet for providers: www.fda.gov/media/807929/download Fact sheet for patients: www.fda.gov/media/477422/download This test has received FDA Emergency Use Authorization (EUA) and has been verified by [facility]. This test is only authorized for the duration of time that circumstances exist to justify the authorization of the emergency use of in vitro diagnostic tests for the detection of SARS-CoV-2 virus and/or diagnosis of COVID-19 infection under section 564(b)(1) of the Act, 21 U.S.C. 360bbb-3(b)(1), unless the authorization is terminated or revoked sooner. [facility] is certified under CLIA-88 as qualified to perform high complexity testing. Testing is performed in the [facility] laboratory located at [address] [place] [address]. [place] [address].Performed By: #### COVSC #### [place], [place] [address]Lab Specimen SourceNasal, NasopharyngealNormalUH [facility]. Naval HospitalComment on above:Performed By: #### COVSC #### [place], [place] [address]Covid 19 Resultson 26-43-8240OMDU-CoV-2 (COVID-19) RNA OMAR+probe Ql (Unsp spec)NEGATIVE COVID-19 Test Coronaviruses are common world-wide and [...] You may also be contacted by the [facility] to see if any of your close [...] or Naproxen (Aleve) can also be used. Htaa-nhp-klqsogx cough and cold medicines can be used according to the instructions on the package. Some ypdk-mtr-ppfrehv medicines also contain acetaminophen. Make sure you [...] water are not available, use alcohol-based hand spd tech. Avoid touching your eyes, nose, and mouth [...] gone for 24 cheri (more content not included)...NormalAurora Las Encinas HospitalDRUG SCREEN,URINEon 06-30-2020 AMPHETAMINE SCREEN,UNegativeNormalNEGATIVEAurora Las Encinas HospitalComment on above:Result Comment: CUTOFF LEVEL: 500 NG/ML Cross-reactivity has been reported with high concentrations of the following drugs: buproprion, chloroquine, chlorpromazine, ephedrine, mephentermine, fenfluramine, phentermine, phenylpropanolamine, pseudoephedrine, and propranolol.Performed By: #### DRUG3 ####[facility] [place], [place] [address]QSULCNCGLXDF SCREEN,U NegativeNormalNEGATIVEAurora Las Encinas HospitalComment on above:Result Comment: CUTOFF LEVEL: 200 NG/MLPerformed By: #### DRUG3 ####[facility] [facility], [place] [address]EOQZPUXNYVLNOPJ SCREEN,UNegativeNormalNEGATIVEAurora Las Encinas HospitalComment on above:Result Comment: CUTOFF LEVEL: 200 NG/MLPerformed By: #### DRUG3 ####[address] [place] [address] CANNABINOIDS SCREEN,UNegativeNormalNEGATIVEAurora Las Encinas HospitalComment on above:Result Comment: CUTOFF LEVEL: 50 NG/MLPerformed By: #### DRUG3 ####[address], [place] [address]TPXDEAM METABOLITE SCREEN,UNegative NormalNEGATIVEAurora Las Encinas HospitalComment on above:Result Comment: CUTOFF LEVEL: 150 NG/MLPerformed By: #### DRUG3 ####[address], [place] [address]LMCK SCREEN COMMENTSEE [facility] Comment on above:Result Comment: Drug screen results are presumptive and should not be used to assess compliance with prescribed medication. Contact the performing [facility] laboratory to add-on definitive confirmatory testing if [...] should be directed to the laboratory medical directors.Performed By: #### DRUG3 ####[address], [place] [address]PDCYDQXK SCREEN,URINENegativeNormalNEGATIVEAurora Las Encinas HospitalComment on above:Result Comment: CUTOFF LEVEL: 1 NG/ML The performance characteristics of this test have been determined by the individual laboratory site where testing is performed. This test has not been cleared or approved by the FDA; however, the FDA has determined that such clearance is not necessary.Performed By: #### DRUG3 ####[id number], [place] [address]BKANOWHVI SCREEN,UNegativeNormalNEGATIVEAurora Las Encinas HospitalComment on above:Result Comment: CUTOFF LEVEL: 150 NG/ML The metabolite J-yiyqi-hixdsxkqlmwkzf (LAAM) is not detected by this method in concentrations that would be found in the urine of patients on LAAM therapy.Performed By: #### DRUG3 ####[address] [address]HPVPTTA SCREEN,UNegative NormalNEGATIVEAurora Las Encinas HospitalComment on above:Result Comment: CUTOFF LEVEL: 300 NG/ML The opiate screen does not detect fentanyl, meperidine, or tramadol. Oxycodone is not consistently detected (refer to Oxycodone Screen, Urine result).Performed By: #### DRUG3 ####[address] [address]EYLZHHCCP SCREEN,UNegativeNormalNEGATIVEAurora Las Encinas HospitalComment on above:Result Comment: CUTOFF LEVEL: 100 NG/ML This test will accurately detect both oxycodone and oxymorphone.Performed By: #### DRUG3 ####[address] [address]FTB SCREEN,U NegativeNormalNEGATIVEAurora Las Encinas HospitalComment on above:Result Comment: CUTOFF LEVEL: 25 NG/ML Cross-reactivity has been reported with dextromethorphan.Performed By: #### DRUG3 ####[address] [address]Boermqqru Planning Lexo1td 13-39-8778Mlqjaqnxx Planning Ohpr8Fevjejohy Planning: Anticipated Discharge [id number] Discharge Planning 06/30/20 Pt plans to return home where he lives with his fiance and follow up with [facility]. He was to start with a new counselor July 19 or , as his prior one left. He accepted information on grief and grief support resources, as well as a journal for expression of feelings. KYLIE Ortiz Assessment: Discharge Planning Assessment [id number] Lives Withsignificant other; Alejandra(1) Living Arrangementsapartment(1) Anticipated Transition Tohome Anticipated Discharge Facility/Level of Care NeedsHome Discharge Documentation: Discharge/Transfer Date/Otjq30-Pwc-0433 15:45 Discharge Modeambulatory Discharged Accompanied Byparent Transportation Methodprivate car Valuables/Medications/Belongings Returnedyes Final DispositionHome Electronic Signatures: Yarelis Seth (ADRIAN) (Signed 30-Jun-2020 12:58) Authored: Discharge Planning, Assessment Ronnell Srinivasan (RN) (Signed 03-Jul-2020 16:31) Authored: Discharge Planning, Discharge Documentation Last Updated: 03-Jul-2020 16:31 by Ronnell Srinivasan (RN) References: 1. 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8 pound(s) Weight Methodstated Scale Typestanding Height in [...] resources Relationship/Environ: Resource/Environmental Concernsnone Primary Source of Support/Comfortsignificant other; parent; sibling(s) Lives Withsignificant other Living [...] From Risk Screen - Adult Emergency 30-Jun-2020 07:55[facility] - ED v2on 45-82-7766Erprdstf Note - ED v2 Provider Note - [...] Data Referenced From Triage - ED 30-Jun-2020 01:11[facility] HospitalRisk Screen - Adult Emergencyon 80-42-5837Stra Screen - Adult Emergency Preferred Language: Preferred Language: Preferred Language for Discussing Health Care (patient/designee)Maltese Advanced Directives: Advance Directive/DNRno Advance Directive Information [...] Communicatenone Learning Preferencesaudio Cultural Considerationsnone Developmental Considerationsnone Judaism Considerationsnone Learning Assessment (Other Learner): Learning Assessment (Other Learner): Other learner availableno Pressure Injury/TB/Substance: Pressure Injury: Pressure Injury Present on Admissionno Do you have a coughno Substance Use Current or Former Historynever: Cigarette/Tobacco, e-Cigarette/Vaping, Alcohol, Street Drugs Admission Risk Screen: Significant IndicatorsComplete CAGE: CAGE: Is this an injured patient at a Trauma Center ([facility]): no Electronic Signatures: Eugenia Medeiros (RN) (Signed 30-Jun-2020 07:55) Authored: Preferred Language, Advanced Directives, Family Violence Adult, Learning Assessment (Patient), Learning Assessment (Other Learner), Pressure Injury/TB/Substance, Pressure Injury, CAGE Last Updated: 30-Jun-2020 07:55 by Eugenia Medeiros (MING)[facility] HospitalTriage - EDon 41-46-4951Axzazq - EDChart Review: ARRIVAL INFORMATION Mode of Arrival: private [...] BMI (kg/m2): 37.584 Calculated BSA (m2) 2.74 [place] Coma Scale: Best Eye Response: (E4) spontaneous [...] Last Updated: 30-Jun-2020 05:05 by Sandy Aguilar (RN)[facility] HospitalURINALYSISon 47-35-8634Rdgrerfskl (U)CLEARNormalCLEARAurora Las Encinas HospitalComment on above:Performed By: #### UA #### [facility] [address] [place], [place] [address]Wjqvdiqdv Ql (U)NegativeNormalNEGLakeHealth Beachwood Medical Center Comment on above:Performed By: #### UA #### [facility] [address], [place] [address]Fbixm (U)YELLOWNormalSTRAW,YELLOWAurora Las Encinas HospitalComment on above:Performed By: #### UA #### [facility] [address] [place], [place] [address]Lmslvqk Ql (U)NegativermalCleveland Clinic Hillcrest Hospital Comment on above:Performed By: #### UA #### [facility] [address] [facility], [place] [address]Sbmrwrvcnn Ql (U)NegativeNormalNEGLakeHealth Beachwood Medical Center Comment on above:Performed By: #### UA #### [facility] [address] [place], [place] [address]Vtrrbcd Ql (U)NegativermalNEGLakeHealth Beachwood Medical Center Comment on above:Performed By: #### UA #### [address], [place] [address]Upgesoofq esterase Test strip Ql (U)NegativeUniversity HospitalalNEGLakeHealth Beachwood Medical CenterComment on above:Performed By: #### UA #### [address] [address]Ulpljph Ql (U)[facility] Comment on above:Performed By: #### UA #### [address] [address]qF (U)5.0 [pH]Normal5.0 - 8.0Aurora Las Encinas HospitalComment on above:Performed By: #### UA #### [address] [address]Nbmxlzu Ql (U)Alleghany HealthrmalCleveland Clinic Hillcrest Hospital Comment on above:Performed By: #### UA #### [address] [address]Cqtvhulu gravity (U) [Rel density]1.488Resiai5.005 - 1.035Aurora Las Encinas HospitalComment on above:Performed By: #### UA #### [address], [place] [address]Icgfdoqjpmkc (U) [Mass/Vol]2.0 mg/dLHigh0.0 - 1.9Aurora Las Encinas HospitalComment on above:Result Comment: SOME PIGMENTS AND MEDICATIONS MAY CAUSE A FALSE POSITIVE UROBILINOGENPerformed By: #### UA #### [address] [place] [address] Vital Signs Date TimeVital SignValuePerforming IezngfgibMzauaznf27-93-1114 14:41-0400Body yghwsy087.31 cmUniversity Hospitals [facility]06-11-2025 14:41-0400Body mass index (BMI) [Ratio]36.3 kg/w4JuraggtunUniversity Hospitals Geneva Medical Center06-11-2025 14:41-0400Body lquyrevbooj324.4 [degF][facility] 08-25-2024 14:41-0400Body acjuzm014.12 kgUniversity Hospitals [facility] 08-25-2024 14:41-0400Diastolic blood yovrjobu474 mm[Hg][facility]06-11-2025 14:41-0400Heart rate96 /[facility]06-11-2025 14:41-0400Respiratory rate18 /[facility]06-11-2025 14:41-2613ApJ8% (BldA) [Mass fraction]99 %[facility]06-11-2025 14:41-0400Systolic blood wjtxqfbu097 mm[Hg][facility]06-24-2024 14:14-0400Body oqhrcy417.3 cmMahnaz Tolentino PREFABRICATED HOUSES TRIMMER-PHARMACY BENEFIT MANAGER Work Phone: [facility]06-24-2024 14:14-0400Body mass index (BMI) [Ratio]33.47 kg/n2VxfhprjMahnaz Tolentino PREFABRICATED HOUSES TRIMMER-PHARMACY BENEFIT MANAGER Work Phone: [facility]06-24-2024 14:14-0400Body seyqxs101.37 kgMahnaz Tolentino PREFABRICATED HOUSES TRIMMER-PHARMACY BENEFIT MANAGER Work Phone: [facility]06-24-2024 14:14-0400Diastolic blood mm[Hg]Mahnaz Tolentino PREFABRICATED HOUSES TRIMMER-PHARMACY BENEFIT MANAGER Work Phone: [facility]06-24-2024 14:14-0400Heart rate 82 /Gabby Tolentino PREFABRICATED HOUSES TRIMMER-PHARMACY BENEFIT MANAGER Work Phone: [facility]06-24-2024 14:14-0400Systolic blood tbbfobrn652 mm[Hg]Mahnaz Tolentino PREFABRICATED HOUSES TRIMMER-PHARMACY BENEFIT MANAGER Work Phone: [facility] Encounters Encounter DateEncounter Type[facility] ProviderFacilityStart: 08-25-2024 End: 35-06-4757efsnbootnaFvkzmngzaTogus [facility] Work Phone: Start: 08-25-2024 End: 91-50-8647Evgkerw encounter procedureFormerly [facility] [place] Work Phone: Start: 09-08-2023 End: 87-58-9225Suiexv follow up visit related to original pxMerlyngraciela Edy Jose Luis PREFABRICATED HOUSES TRIMMER-PHARMACY BENEFIT MANAGER Work Phone: [facility] General SurgeryComment on above: Status post laparoscopic cholecystectomy (Primary Dx)Start: 09-08-2023 End: 96-12-7464vhtumonihqLIGMMFZ Edy [facility] Start: 09-04-2023 End: 02-97-0421Htajhk OnlyNot In System Ref ProvProWvumedicine [facility] General SurgeryStart: 08-26-2023 End: 18-13-5262usbitpvokeUepqavl D [facility] Work Phone: Start: 08-26-2023 End: 30-78-7094Hwuxhtwe ReferredDO [facility]- LAB Path Spec [place] HospStart: 08-25-2023 End: 89-12-9391kdvrafblsbLLHolzer Health System Ctr Work Phone: Start: 08-25-2023 End: 91-84-7893Wycyeywj ReferredDO [facility]- LAB Path Spec [place] HospStart: 51-45-8004Sdashb encounterMetroHealth Procedures DateProcedureProcedure DetailPerforming ClinicianStart: 63-50-0945Awkco Strep (POC)Start: 81-88-0910Tqteo i surg pathology gross examination onlyNot In System Ref ProvStart: 46-30-2857HFIACVBX LABSNot In System Ref ProvHistory of cholecystectomyStatus post laparoscopic cholecystectomyMahnaz Tolentino PREFABRICATED HOUSES TRIMMER-PHARMACY BENEFIT MANAGER Work Phone: Plan of Treatment DateCare ActivityDetailAuthorStart: 04-75-9669Xdiokjxb (RZV) Vaccine (1 of 2) Shingles (RZV) Vaccine (1 of 2)MetroHealthStart: 32-43-2751Lzyre BMI Screening Adult BMI ScreeningAngel Medical Centertart: 11-81-6045Ehlqbfinq vaccination Influenza VaccineProOhioHealth Nelsonville Health Centertart: 09-08-2023 End: 99-80-1410Dajgvmb encounter wswgzdhwi51/24/2024 2:15 PM EDT Office Visit [facility] [address], [id number] Mahnaz Tolentino, PREFABRICATED HOUSES TRIMMER-PHARMACY BENEFIT MANAGER [address] [place] [address] [facility] General SurgeryStart: 78-63-7838FSEXR-19 Vaccine ( season)COVID-19 Vaccine ()[facility] SystemStart: 90-07-4767Rrhwjxril vaccinationInfluenza Vaccine (#1)MetroHealthStart: 84-12-9328IYnO,Tdap and Td Vaccines (7 - Tdap) DTaP,Tdap and Td Vaccines (7 - Tdap)[facility] SystemStart: 01-28-2016 DTaP,Tdap and Td Vaccines (1 - Tdap)DTaP,Tdap and Td Vaccines (1 - Tdap) [facility] SystemStart: 86-99-8774Mswlj BMI Follow Up PlanAdult BMI Follow Up PlanCincinnati Children's Hospital Medical Center SystemStart: 87-44-7175Cbmfx BMI ScreeningAdult BMI ScreeningCincinnati Children's [facility] SystemStart: 62-58-4168Sloicltkg C screeningHepatitis C AntibodyMetroHealthStart: 58-73-9945Orwajir + diphtheria + acellular pertussis vaccine (product)Tdap BoosterMetroHealthStart: 21-59-4784SDR screeningHIV Test MetroHealthStart: 07-90-9453Bxylhnrlyb ScreeningDepression ScreeningProFostoria City Hospital SystemStart: 29-27-7938Ugpwcyb ScreeningTobacco ScreeningProFostoria City Hospital SystemStart: 79-64-7351Mfjesavptlt for human papillomavirusHuman Papilloma (HPV) Vaccine (1 - Male 2-dose series)MetroHealthStart: 99-17-9899FTGIA-19 Vaccine (#1)COVID-19 Vaccine (#1)[facility] Immunizations Immunization DateImmunizationNotesCare PkjktunzMgqpswfj41-57-1520zxcdscpga virus vaccine, unspecified formulationDarekcece Grayshahrzad CYR Work Phone: [facility] HospitalDgztmu31-11-6261goytmgofs virus vaccine, unspecified lzgdstnxspeMmqpuVrcumu66-80-3366ctxhlwvuol, tetanus toxoids and acellular pertussis ydpybfvMpvkaHfnppb52-14-1882vgmqfvejbv vaccine, uejzabzjjhjEnjzzZksmiv06-10-8460gyqswwxtlwpj conjugate vaccine, 7 valent EigijRwmcmj31-68-9651tjndhkdul virus vaccine, unspecified formulationMetroTuscarawas Hospital 00-68-9031jzcffgq, mumps and rubella virus ciyiqekRwradGylyut01-07-0203qksjnegmh virus vaccine, unspecified dznjedsmqsnBypvxRnoodh99-30-4059uiyyavplv virus vaccine, unspecified xurgxsouydcJbofpAfbyvj02-41-6895zkvwcchbc virus vaccine, unspecified lxcjoeyuoqxDndapStpukx61-03-4643pwccvlxemi, tetanus toxoids and acellular pertussis kndgynmFujpmXhutvr40-39-7758emjuwlxcckv influenzae type b vaccine, HbOC vfpetplarUzimfLfbhqm18-27-7759pyrphvi, mumps and rubella virus oqdxitaVjenzIhxfvj36-82-4990jynfjniog virus xmhciyjMebbsFhlwcw79-89-7175 hepatitis B vaccine, pediatric or pediatric/adolescent dosageMetroTuscarawas Hospital 71-08-3185jbtawoadfq, tetanus toxoids and acellular pertussis vaccineMetroTuscarawas Hospital 81-39-6132cllybbxocry influenzae type b vaccine, HbOC conjugateMetAdena Regional Medical Center 32-76-2037zdekkexowt vaccine, lmgjgmafpsyLzjkqTloulc22-64-4484sqxlzwbmtf, tetanus toxoids and acellular pertussis gdgowcaCxeikKselya74-15-5964rzmrlqrfabw influenzae type b vaccine, HbOC bpdcddjnvYoeuwZmcaff95-83-9732bqdxsczjhv vaccine, rirbddtacocJmnhyLiiuld79-40-9494kvyvkftnaq, tetanus toxoids and acellular pertussis cmpzdzqAvwsqSptvbt53-23-1972qxgeyjfcwgq influenzae type b vaccine, HbOC ccpqjrysxBnglxIxdvem44-20-2168vvdxsfgjry vaccine, inactivated JedkyPvdvzb64-35-0597jlnmyzwsh B vaccine, pediatric or pediatric/adolescent fezjolVzttrQwtkbi63-00-1486xxqtdnvkv B vaccine, pediatric or pediatric/adolescent dosageMetroHealth Payers DatePayer CategoryPayerPolicy [id number] - HOSP ONLY MEDFLEX - HOSP ONLY [id number] 2019-Present [address] [place] [address] [id number] Social History DateTypeDetailFacilityTobacco smoking status NHISTobacco smoking consumption unknownProFostoria City Hospital SystemStart: 58-58-7075Euq Assigned At BirthNot on file [facility]Start: 78-95-7640Jzf Assigned At BirthCleveland Clinic Hillcrest Hospitaltart: 49-94-2148Zvgvhp identityNot on fileCinc[facility] SystemStart: 88-98-4804Wmlpdyc smoking status NHISSmokes tobacco dailyKettering Memorial Hospital Health System Start: 18-84-9992Xlpgdnw use and exposureSmokeless tobacco non-userCincinnati [facility] SystemStart: 26-20-5594Difbqrjiy beverage intakeCurrent drinker of alcohol (finding)[facility] SystemStart: 29-62-0611Szgeuuk of Social functionProFostoria City Hospital SystemWithin the past 12 months we worried whether our food would run out before we got money to buy more.Never TrueProFostoria City Hospital SystemStart: 74-94-8146Hlscxbk CommentsociallyPSelect Medical [facility] SystemStart: 33-21-7941ZlyWbnd (finding)[facility] History of Present illness Narrative 09-08-2023 Note Date & QewiDdxiLwxxucnm02-53-5770 History of Present illness Narrative* Mahnaz Tolentino, NICOLETTE-SANTHOSH - 09/08/2023 2:15 PM EDT Images from the original note were not [...] denies any fever. 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 He is ready to return to work. [...] Status post laparoscopic cholecystectomy [Z90.49] KLARISSA PARKS [facility] General Surgery [place] This note was created with the assistance of a speech recognition program. While intending to generate a timely document that accurately reflects the content of the visit, no guarantee can be provided that every grammatical or spelling mistake has been or will be identified or corrected. Thank you for your understanding. KLARISSA Parks 09/08/23 1428 documented in this encounterCincinnati Children's Hospital Medical Center System Discharge summary note 07-03-2020 Note Date & JbdlYsxzHmljxhzb92-29-1207 NoteSend Summary: Note Recipients: na Discharge: Summary: Admission [...] (2) Additional Resources for Patient and Family: [facility] Tobacco Use: Screening: Was the patient screened within the first 3 days of admission for tobacco use (cigarettes, smokeless tobacco, pipe, and cigar) within the previous 30 days: patient refused (2) This patient is being discharged on multiple antipsychotic medications: no: Take all medications until outpatient provider advises otherwise. (2) Questions After Hospitalization: Phone Number: Anonymess Dowell (2) For Results of Any Studies Pending at Discharge: Phone: Anonymess Dowell (2) Advance Directives: Advance Directive (Medical)no(2) Advance [...] Up Appointments: Follow-Up Appointment 01: Physician/Dept/Service: [facility] Reason for Referral: Follow up appt Scheduled Date/Time: 20-Jul-2020 16:00 Location: Telehealth appt Follow-Up Appointment 02: Physician/Dept/Service: Dr. Angela - PCP Reason for Referral: Blood pressure follow up / GERD follow up Scheduled Date/Time: 05-Jul-2020 10:00 Location: [address] [place] [address] Dr [place] [id number] Discharge Medications: Home Medication OXcarbazepine 150 mg [...] continue therapy safety plan (more content not included)...[facility] Clinical Note 07-01-2020 Note Date & JuvsNgngKcsvjfpi00-46-2213 NoteHistory Present Illness: Admission Reason: Suicidal thoughts HPI: PER EPAT: Pt, who is a 25 year old male, presents to the [facility] ED with a chief complaint of suicidal ideation. Prior to assessment, pt's EMR including; Provider note, triage note, and community record were reviewed. Today, pt was brought to the ED by his fihugoe. 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 Social History Pt currently resides [...] checked: no Objective: Objective Information: T PRBPSpO2 Value37.41993036/8897% Date/Time07/01 10: 10: 10: 10: 10:07 Range(37C [...] StatementI certify this pa (more content not included)...[facility] Evaluation note Note Date & TypeNoteFacilityEvaluation noteNo assessment information available [facility] Work Phone: Evaluation note Note Date & TypeNoteFacilityEvaluation note* Diagnosis Status post laparoscopic cholecystectomy- Primary Other postprocedural status documented in this encounter [facility] Instructions Note Date & TypeNoteFacilityInstructionsNot on filedocumented in this encounter [facility] Instructions Note Date & TypeNoteFacilityInstructionsNot on filedocumented in this encounter [facility] Summary Purpose Family History No Family [...] section and content) DATE CREATED AUTHOR 07/06/2020 [facility] DATE CREATED AUTHOR AUTHOR'S ORGANIZ ATION 07/18/2020 [facility] DATE CREATED AUTHOR AUTHOR'S ORGANIZ ATION 09/03/2023 [facility] DATE CREATED AUTHOR AUTHOR'S ORGANIZ ATION 09/09/2023 [facility] Care Teams (unrecognized sec tion and content) Team Status: Inactive Member Role Status Dates Kwan Chi DO Attending Provider Active S tart: August 25, 2023 End: August 25, 2023 Team Status: Inactive Member Role Status Dates Kwan Chi DO Attending Provider Active S tart: August 26, 2023 End: August 26, 2023 Team Status: Active Member Role Status Dates NON STAFF Primary Care Provider Active Team Status: Inactive Member Role Status Dates Dilma Lyons APRN Attending Provider Active Start: August 25, 2024 End: August 25, 2024NON STAFFPrimary Care ProviderActiveStart: August 25, 2024 End: August 25, 2024 Goals (unrecognized section and content) Goals may be documented in a n alternate sectionGoals may be documented in an alternate sectionNot on filedocumented as of this encounterNot on filedocumented as of this encounterGoals may be documented in an alternate section Reason for Visit (unrecogniz ed section and content) ReasonCommentsPost-opPost op davinci cholecystectomy performed 08/26/23 at [facility] FOR RECORDS PERTAINING TO PATIENTS WHO [...] BE BASED ON THE PRIMARY CLINICAL RECORDS. [facility] [employer] [facility]. provides no warranty or guarantee of the accuracy or completeness of information in this document.
[2025-01-13] MEDS: IBUPROFEN 400 MG TABLET 800 MG PO (10:48)
[2025-01-13] MEDS: METHOCARBAMOL 500 MG TABLET PO (10:48)
[2025-01-13 10:54] VITALS: BP 160/112; PULSE 70; O2SAT 99
== END 2025-01-13 10:57 | disposition home or self-care (01) ==
PROVIDERS: Emergency Provider Emergency Medicine
DX: S16.1XXA Strain of muscle, fascia and tendon at neck level, initial encounter (principal); V43.53XA Car driver injured in collision with pick-up truck in traffic accident, initial encounter; S46.919A Strain of unspecified muscle, fascia and tendon at shoulder and upper arm level, unspecified arm, initial encounter; F17.200 Nicotine dependence, unspecified, uncomplicated
CPT/HCPCS: 99283